=== PATIENT | male | born 1960 | race American Indian/Alaskan Native ===

== ENCOUNTER 2017-04-06 12:11 | Inpatient (IN) | payer MEDICARE, OTHER ==
[2017-04-06 12:20] VITALS: BMI 24.0
--- NOTE | 2017-04-06 12:54 | ED PDOC ---
Arrival/HPI - General Chief Complaint: Weakness/Neurological Deficit Time Seen by Provider: 04/06/17 12:46 Historian: Patient, EMS - History of Present Illness Narrative History of Present Illness (Text): The patient is a 57yo male, with past medical history of dialysis (sunday, sunday, sunday), brought to the emergency department by EMS for evaluation because the patient did not look well. The pt reports he is short of breath at baseline and at present denies any chest pain. He additionally reports feeling tired, lazy and sleepy for the past "couple months". Pt currently offers no additional medical complaints. Control Panel Tester: Dr. Stanislaw Jensen Time/Duration: > month Symptom Onset: Gradual Past Medical History - Provider Review Nursing Documentation Reviewed: Yes - Infectious Disease Hx of Infectious Diseases: None - Tetanus Immunization Tetanus Immunization: Unknown - Cardiac Hx Hypertension: Yes - Renal Hx Renal Disorder: Yes Hx Dialysis: Yes () Hx Renal Cancer: Yes Other/Comment: kidney transplant 2004 - Musculoskeletal/Rheumatological Hx Falls: No - Psychiatric Hx Substance Use: No - Surgical History Hx Kidney Transplant: Yes (2004) Hx Orthopedic Surgery: Yes (right rotator cuff) Other/Comment: L av fistula - Anesthesia Hx Anesthesia: Yes Hx Anesthesia Reactions: No Hx Malignant Hyperthermia: No Family/Social History - Physician Review Nursing Documentation Reviewed: Yes Family/Social History: Unknown Family HX Smoking Status: Never Smoked Hx Alcohol Use: No Hx Substance Use: No Allergies/Home Meds Allergies/Adverse Reactions: Allergies No Known Allergies Allergy (Verified 04/06/17 21:12) Home Medications: Home Meds Medication Instructions Recorded Confirmed Amiodarone HCl [Amiodarone HCl] 200 mg PO DAILY 04/06/17 04/06/17 Apixaban [Eliquis] 2.5 mg PO BID 04/06/17 04/06/17 Aspirin [Adult Low Dose Aspirin EC] 81 mg PO DAILY 04/06/17 04/06/17 Calcium Acetate [Phoslo] 667 mg PO TID 04/06/17 04/06/17 Cinacalcet [Sensipar] 30 mg PO BID 04/06/17 04/06/17 Colchicine [Colcrys] 0.6 mg PO 2XW 04/06/17 04/06/17 Diltiazem HCl [Cardizem] 30 mg PO DAILY 04/06/17 04/06/17 Ferrous Sulfate [Feosol] 325 mg PO DAILY 04/06/17 04/06/17 Folic Acid [Folic Acid] 1 mg PO DAILY 04/06/17 04/06/17 Furosemide [Lasix] 40 mg PO DAILY 04/06/17 04/06/17 Metoprolol Succinate [Toprol XL] 25 mg PO DAILY 04/06/17 04/06/17 Paricalcitol [Zemplar] 1 mcg PO DAILY 04/06/17 04/06/17 Sirolimus [Rapamune] 4 mg PO DAILY 04/06/17 04/06/17 Zolpidem [Ambien] 10 mg PO HS 04/06/17 04/06/17 hydrALAZINE [Apresoline] 10 mg PO BID 04/06/17 04/06/17 predniSONE [predniSONE Tab] 5 mg PO DAILY 04/06/17 04/06/17 Review of Systems - Physician Review All systems were reviewed & negative as marked: Yes Physical Exam - Physical Exam Narrative Physical Exam (Text): - Review of Systems All systems as reviewed otherwise negative. Constitutional: Lethargy absent: Fevers Eyes: Normal ENT: Normal Respiratory: SOB at baseline absent: Cough, Sputum Cardiovascular: Normal absent: Chest pain, Palpitations, Syncope Gastrointestinal: Normal absent: Abdominal pain, Diarrhea, Nausea, Vomiting Genitourinary: Normal. absent: Dysuria, Frequency, Hematuria Musculoskeletal: Normal. absent: Arthralgias, Back Pain, Neck Pain Skin: Normal Neurological: Normal absent: Focal Weakness Endocrine: Normal Psychiatric: Normal - Physical exam Patient appears age appropriate, speaking full sentences without difficulty - Systems Exam Head: Present: Atraumatic, Normocephalic Pupils: Present: PERRL Extraocular Muscles: Present: EOMI Conjunctiva: Present: Normal Mouth: Present: Moist Mucous Membranes Neck: Present: Normal Range of Motion. No: MIDLINE TENDERNESS, Paraspinal Tenderness Respiratory/Chest: Present: Clear to Auscultation, Good Air Exchange. No: Respiratory Distress, Accessory Muscle Use, Tachypnic Cardiovascular: Present: Irregularly irregular. No: Murmurs Abdomen: Present: Normal Bowel Sounds, No: Tenderness, Peritoneal Signs, Rebound, Guarding, Distention Back: Present: Normal Inspection. No: Midline Tenderness, Paraspinal Tenderness Upper Extremity: Present: Normal Inspection. Left upper extremity with hemodialysis access, positive thrill, bruit and pulse present. No: Cyanosis, Edema Lower Extremity: Present: Normal Inspection. No: Edema Neurological: Present: GCS=15, Speech Normal, cranial nerves II through XII fully intact with no cerebellar abnormality, neuro-sensory fully intact. No focal neurological deficits. Skin: Present: Warm, Dry, Normal Color. No: Rashes Lymphatic: Present: OX3, NI, NC Psychiatric: Present: Alert, Oriented x 3, Normal Insight, Normal Concentration Vital Signs Temp Pulse Resp BP Pulse Ox 04/06/17 16:38 97 H 18 113/78 97 04/06/17 15:30 102 H 18 108/70 04/06/17 13:20 94 H 18 106/78 98 04/06/17 12:11 99.9 F H 101 H 18 109/72 99 Medical Decision Making ED Course and Treatment: Impression: 57yo male on HD, states he has not been feeling well for months. No acute findings on PE. Pt in no distress. labs ordered Differential Diagnosis included but are not limited to: anemia, dehydration, infection Plan: -- Labs -- EKG -- CXR -- Reassess and disposition Prior Visits: Notes and results from previous visits were reviewed. Patient was last seen in the emergency department on 08/28/16 for lethargy and was admitted as an inpatient. Progress Notes: EKG: Ordered, reviewed, and independently interpreted the EKG. Rate : 100 BPM Rhythm : Irregularly irregular, a-fib Interpretation : No ST-segment elevations, ST Depression in V4, V5 and V6. Interpreted by me. 04/06/17 14:03 Chest X-ray IMPRESSION: Suspect right lower lobe pneumonia. read by radiology 04/06/17 15:27 BCx and abx ordered pt's qc lab technician andre, awaiting callback Dr. Whiting, environmental lead, paged as well. pt states he has no PMD at [facility] 04/06/17 15:[address] Duran, accepted admission to his service Dr. Neal informed as well pt and aware of and agree with plan pt in no resp distress at this time, speaking full sentences without difficulty - Lab Interpretations Microbiology Results: Microbiology Results 04/06/17 14:30 Blood-Venous Blood Culture - Preliminary NO GROWTH AFTER 48 HOURS 04/06/17 14:00 Blood-Venous Blood Culture - Preliminary NO GROWTH AFTER 48 HOURS Lab Results: 04/06/17 12:38 04/06/17 14:15 Lab Results 04/06/17 14:15: NT-Pro-B Natriuret Pep 92475 H 04/06/17 14:15: Sodium 134, Potassium 3.6, Chloride 95 L, Carbon Dioxide 29, Anion Gap 14, BUN 25 H, Creatinine 6.8 H, Est GFR ( Amer) 10, Est GFR ( Non-Af Amer) 8, Random Glucose 87, Calcium 8.5, Total Bilirubin 0.8, AST 29, ALT 24, Alkaline Phosphatase 55, Total Protein 6.1, Albumin 3.4, Globulin 2.7, Albumin/Globulin Ratio 1.3 04/06/17 12:38: PT 11.8, INR 1.09 H, APTT 32.2 H 04/06/17 12:38: WBC 4.3 L, RBC 4.51, Hgb 10.5 L, Hct 35.2 L, MCV 78.0 L, MCH 23.3 L, MCHC 29.8 L, RDW 23.0 H, Plt Count 263, Gran % 58.5, Lymph % (Auto) 23.9 , [place] % (Auto) 11.9 H, Eos % (Auto) 5.2 H, Baso % (Auto) 0.5, Gran # 2.50, Lymph # 1.0 L, [place] # 0.5, Eos # 0.2, Baso # 0.02 - RAD Interpretation Radiology Orders: 04/06/17 12:55 CHEST PORTABLE [RAD] Stat - Medication Orders Current Medication Orders: Acetaminophen (Tylenol 325mg Tab) 650 mg PO Q6H PRN PRN Reason: Fever >100.4 F Last Admin: 04/08/17 17:16 Dose: 650 mg Re-Assess: [facility] Pain/Vitals Document 04/08/17 18:16 MICE (Rec: 04/08/17 18:28 [place] [id number]) Pain Reassessment Is This A Pain ReAssessment? Yes Presence of Pain Presence of Pain No Amiodarone HCl (Cordarone) 200 mg PO DAILY [facility] Last Admin: 04/08/17 12:01 Dose: 200 mg Aspirin (Ecotrin) 81 mg PO DAILY [facility] Last Admin: 04/08/17 11:04 Dose: Not Given Non-Admin Reason: Patient Refused Calcium Acetate (Phoslo) 667 mg PO TID [facility] Last Admin: 04/08/17 17:37 Dose: 667 mg Colchicine (Colocrys) 0.6 mg PO 2XW [facility] Last Admin: 04/07/17 11:29 Dose: Diltiazem HCl (Cardizem) 30 mg PO DAILY [facility] Last Admin: 04/08/17 11:00 Dose: Not Given Non-Admin Reason: BP Parameters Not Met Docusate Sodium (Colace) 100 mg PO DAILY PRN PRN Reason: Constipation Last Admin: 04/08/17 14:30 Dose: 100 mg Doxycycline Hyclate (Doryx) 100 mg PO Q12 [facility] PRN Reason: Protocol Last Admin: 04/08/17 21:47 Dose: 100 mg Furosemide (Lasix) 40 mg IVP Q12 [facility] Last Admin: 04/08/17 21:47 Dose: Not Given Non-Admin Reason: BP Parameters Not Met Cefepime HCl (Maxipime 1gm) 1 gm in 100 mls @ 100 mls/hr IVPB Q24H ANURAG PRN Reason: Protocol Stop: 04/13/17 21:31 Last Admin: 04/08/17 21:47 Dose: 100 mls/hr Metoprolol Succinate (Toprol Xl) 50 mg PO DAILY [facility] Last Admin: 04/08/17 11:00 Dose: Not Given Non-Admin Reason: BP Parameters Not Met Ondansetron HCl (Zofran Inj) 4 mg IVP Q4H PRN PRN Reason: Nausea/Vomiting Last Admin: 04/08/17 22:48 Dose: 4 mg Oxycodone/Acetaminophen (Percocet 5/325 Mg Tab) 1 tab PO Q6H PRN PRN Reason: Pain, severe (8-10) Stop: 04/10/17 11:05 Last Admin: 04/07/17 15:35 Dose: 1 tab Re-Assess: KETURAH Pain Assessment Document 04/07/17 16:35 MICEM (Rec: 04/07/17 18:11 [id number] Pain Reassessment Is this a pain reassessment? Yes Sleep Is patient sleeping during reassessment? Yes Pantoprazole Sodium (Protonix Ec Tab) 40 mg PO 0600 [facility] Last Admin: 04/09/17 06:02 Dose: Not Given Non-Admin Reason: Patient Refused Prednisone (Prednisone Tab) 5 mg PO DAILY [facility] Last Admin: 04/08/17 11:03 Dose: 5 mg Vitamin B Complex/Vit C/Folic Acid (Nephro-Natalie) 1 tab PO 0800 [facility] Last Admin: 04/08/17 08:27 Dose: 1 tab Discontinued Medications Diphenhydramine HCl (Benadryl) 25 mg PO ONCE ONE Stop: 04/07/17 23:03 Last Admin: 04/07/17 23:25 Dose: 25 mg Famotidine (Pepcid) 20 mg PO 1000,2200 [facility] Last Admin: 04/07/17 10:57 Dose: 20 mg Ferrous Sulfate (Feosol) 324 mg PO DAILY [facility] Last Admin: 04/07/17 10:55 Dose: 324 mg Folic Acid (Folic Acid) 1 mg PO DAILY [facility] Last Admin: 04/07/17 10:56 Dose: 1 mg Hydralazine HCl (Apresoline) 10 mg PO BID [facility] Ceftriaxone Sodium (Rocephin 1 Gram Ivpb) 1 gm in 100 mls @ 200 mls/hr IV STAT STA PRN Reason: Protocol Stop: 04/06/17 15:53 Last Admin: 04/06/17 15:45 Dose: 200 mls/hr Azithromycin (Zithromax 500mg In Ns) 500 mg in 250 mls @ 166.667 mls/hr IV STAT STA PRN Reason: Protocol Stop: 04/06/17 16:53 Last Admin: 04/06/17 16:24 Dose: 166.667 mls/hr Linezolid (Zyvox 600mg/300ml D5w) 600 mg in 300 mls @ 200 mls/hr IVPB Q12 ANURAG PRN Reason: Protocol Stop: 04/13/17 22:01 Last Admin: 04/06/17 21:32 Dose: 200 mls/hr Dextrose/Sodium Chloride (Dextrose 5%/0.9% Ns 1000 Ml) 1,000 mls @ 100 mls/hr IV .Q10H [facility] Dextrose/Sodium Chloride (Dextrose 5%/0.9% Ns 1000 Ml) 1,000 mls @ 50 mls/hr IV .Q20H [facility] Last Admin: 04/06/17 21:28 Dose: 50 mls/hr Non-Formulary Medication (Paricalcitol [Zemplar]) 1 mcg PO DAILY [facility] Last Admin: 04/07/17 10:57 Dose: Ondansetron HCl (Zofran Inj) 4 mg IVP ONCE ONE Stop: 04/09/17 01:02 Last Admin: 04/09/17 01:36 Dose: 4 mg Pantoprazole Sodium (Protonix Inj) 40 mg IVP DAILY [facility] Last Admin: 04/07/17 12:35 Dose: 40 mg Pneumococcal Polyvalent Vaccine (Pneumovax 23 Vaccine) 0.5 ml IM .ONCE ONE Stop: 04/06/17 22:39 Last Admin: 04/07/17 00:14 Dose: Potassium Chloride (K-Dur 20 Meq Er Tab) 20 meq PO ONCE ONE Stop: 04/07/17 10:17 Last Admin: 04/07/17 10:56 Dose: 20 meq - Scribe Statement The provider has reviewed the documentation as recorded by the Piper Montoya Provider Scribe Attestation: All medical record entries made by the Piper were at my direction and personally dictated by me. I have reviewed the chart and agree that the record accurately reflects my personal performance of the history, physical exam, medical decision making, and the department course for this patient. I have also personally directed, reviewed, and agree with the discharge instructions and disposition. Disposition/Present on Arrival - Present on Arrival Any Indicators Present on Arrival: No History of DVT/PE: No History of Uncontrolled Diabetes: No Urinary Catheter: No History of Decub. Ulcer: No History Surgical Site Infection Following: None - Disposition Have Diagnosis and Disposition been Completed?: Yes Diagnosis: Pneumonia Disposition: HOSPITALIZED Disposition Time: 15:59 Patient Plan: Admission Patient Problems: Current Active Problems Problem Status Onset Pneumonia Acute Condition: FAIR
[2017-04-06 13:31] LABS: BASO # 0.02 K/mm3 (0.0-2.0); BASO % 0.5 % (0.0-3.0); EOS # 0.2 (0.0-0.7); EOS % 5.2 % (1.5-5.0); GRAN % 58.5 % (50.0-68.0); HEMOGLOBIN 10.5 gm/dL (14.0-18.0); LYMPH % 23.9 % (22.0-35.0); MEAN CORPUSCULAR HEMOGLOBIN 23.3 pg (25.0-35.0); MEAN CORPUSCULAR HGB CONC 29.8 g/dl (31.0-37.0); MONO # 0.5 (0.1-0.6); MONO % 11.9 % (1.0-6.0); PLATELET COUNT 263 10^3/uL (120.0-450.0); RBC 4.51 10^6/uL (3.5-6.1); WHITE BLOOD COUNT 4.3 10^3/ul (4.5-11.0)
[2017-04-06 13:37] LABS: INR 1.09 (0.93-1.08); PARTIAL THROMBOPLASTIN TIME 32.2 Seconds (23.7-30.8); PROTHROMBIN TIME 11.8 Seconds (9.9-11.8)
--- NOTE | 2017-04-06 14:04 | RAD ---
HISTORY: cough COMPARISON: No prior. FINDINGS: LUNGS: There is consolidation in the right lower lobe. The left lung is clear. PLEURA: No significant pleural effusion identified, no pneumothorax apparent. CARDIOVASCULAR: There is mild cardiomegaly. OSSEOUS STRUCTURES: Within normal limits for the patient's age. VISUALIZED UPPER ABDOMEN: Normal. OTHER FINDINGS: None. IMPRESSION: Suspect right lower lobe pneumonia. Follow-up after medical management is recommended to ensure complete resolution.
[2017-04-06 14:30] LABS: ALB/GLOB RATIO 1.3 (1.1-1.8); ALBUMIN 3.4 g/dL (3.0-4.8); CALCIUM 8.5 mg/dL (8.4-10.5)
[2017-04-06] MEDS ORDERED: Azithromycin 500MG/NS 250ml 500 MG/250 ML BAG IV STA (15:24)
[2017-04-06] MEDS ORDERED: cefTRIAXone 1 gm 1 GM/100 ML BAG IV STA (15:24)
--- NOTE | 2017-04-06 18:03 | CT ---
PROCEDURE: CT HEAD WITHOUT CONTRAST. HISTORY: AMS COMPARISON: None available. TECHNIQUE: Axial computed tomography images were obtained through the head/brain without intravenous contrast. Radiation dose: Total exam DLP = 774.23 mGy-cm. This CT exam was performed using one or more of the following dose reduction techniques: Automated exposure control, adjustment of the mA and/or kV according to patient size, and/or use of iterative reconstruction technique. FINDINGS: HEMORRHAGE: No intracranial hemorrhage. BRAIN: No mass effect or edema. Mild diffuse atrophy. Mild periventricular and deep white matter lucency consistent with chronic microvascular ischemic change. No evidence of acute infarct. VENTRICLES: Unremarkable. No hydrocephalus. CALVARIUM: Unremarkable. PARANASAL SINUSES: Mild chronic left maxillary sinusitis. MASTOID AIR CELLS: There is a left mastoid effusion as well as fluid in the left middle ear cavity. These are nonspecific findings. Please correlate. OTHER FINDINGS: None. IMPRESSION: No intracranial mass, hemorrhage or evidence of acute infarct. Atrophy and chronic white matter ischemic change. Left mastoid effusion and fluid in the left middle ear cavity. Nonspecific. Mild chronic left maxillary sinusitis.
--- NOTE | 2017-04-06 20:01 | CP.PCM.HP ---
Addendum entered and electronically signed by Billy Neal DO 04/06/17 22:52: Patient was seen and examined and case was discussed at great length with Dr. Almeida. Patient somewhat altered but comfortable, finding suggestive of PNA, given dialysis will start empirical treatment for HCAP. Billy Neal D.O. PGY-2 Original Note: <KIMBER ALMEIDA - Last Filed: 04/06/17 22:31> History of Present Illness - History of Present Illness History of Present Illness: Kimber Almeida DO PGY1 - Internal Medicine H&P - Dedousis/Adaniel Service CC: SOB HPI: 57M with PMH ESRD on dialysis (M/W/F), s/p kidney transplant 12 years ago, Afib diagnosed 2 months ago, HTN, gout, and pneumonia presents with c/o SOB and fatigue for the past 2 months, acutely worsening in the past 2 weeks. He was brought to the ED by ambulance, sent from dialysis center where they felt he did not appear normal. His was present at the bedside and was providing some of the history as well. He states symptoms are worse with activity, especially climbing stairs. Patient also admits to fever, nausea/vomiting, 3 pillow orthopnea, leg swelling and cramping, instability and falls, confusion, and malaise. He denies chest pain and cough. reports confusion, tiredness, darkening of skin, and general decline of health in the past two months. He was recently diagnosed with atrial fibrillation 2 months ago and restarted dialysis 1 month ago, at which time he also discontinued the immune suppressants he was on and started tapering down prednisone. Also of note, he has received 4 transfusions in the past year, 7-10 overall. He has a history of smoking, admits to occasional alcohol use, denies drug use. PMH: ESRD on HD, Afib, HTN, gout, pneumonia PSH: Kidney transplant 12 years ago Soc: previous smoker, denies alcohol and illicits All: NKDA FHx: Siblings with kidney disease, mother [place], father HTN Meds: See MAR ROS: Constitutional: +generalized weakness; pt denies fever, chills, ENT: pt denies dysphagia, otalgia, hearing deficit, rhinorrhea Eyes: pt denies sudden loss of vision, diplopia, blurred vision MSK: pt denies muscle stiffness, joint pain, extremity cramping Cardio: +sob, leg swelling; pt denies cp, dvt Pulm: +orthopnea pt denies cough, hemoptysis, wheeze GI: +loss of appetite, nausea, vomiting; pt denies abdominal pain, constipation , melena, diarrhea : +decreased urine output; pt denies burning on urination, urinary frequency, hematuria, urinary urgency Neuro: +weakness pt denies paresis, paresthesia, dizziness, gloria, numbness, tingling Derm: pt denies skin changes, lesions, nail changes Endo: pt denies intolerance to heat/cold, diaphoresis, night sweats, polydipsia Psych: +confusion pt denies anxiety, depression, mood changes PCP - Michael Correia Manager Etl - Olivier Heel [employer] - Stanislaw Jensen Present on Admission - Present on Admission Any Indicators Present on Admission: No Past Patient History - Infectious Disease Hx of Infectious Diseases: None - Tetanus Immunizations Tetanus Immunization: Unknown - Past Medical History & Family History Past Medical History?: Yes - Past Social History Smoking Status: Never Smoked - CARDIAC Hx Hypertension: Yes - RENAL Hx Chronic Kidney Disease: Yes Hx Dialysis: Yes (mwf) Hx Renal (Kidney) Cancer: Yes Other/Comment: kidney transplant 2004 - MUSCULOSKELETAL/RHEUMATOLOGICAL Hx Falls: No - PSYCHIATRIC Hx Substance Use: No - SURGICAL HISTORY Hx Kidney Transplant: Yes (2004) Hx Orthopedic Surgery: Yes (right rotator cuff) Other/Comment: L av fistula - ANESTHESIA Hx Anesthesia: Yes Hx Anesthesia Reactions: No Hx Malignant Hyperthermia: No Meds Allergies/Adverse Reactions: Allergies Allergy/AdvReac Type Severity Reaction Status Date / Time No Known Allergies Allergy Verified 04/06/17 21:12 Physical Exam - Constitutional Appears: Confused, Chronically Ill Additional comments: Lethargic - Head Exam Head Exam: ATRAUMATIC, NORMOCEPHALIC - Eye Exam Eye Exam: EOMI, Normal appearance, PERRL - ENT Exam ENT Exam: Mucous Membranes Moist - Neck Exam Neck exam: Positive for: Normal Inspection. Negative for: Lymphadenopathy, Meningismus - Respiratory Exam Respiratory Exam: Rales (Right lower lung field). absent: Rhonchi, Wheezes Additional comments: Daniel Logan breathing pattern - Cardiovascular Exam Cardiovascular Exam: +S1, +S2 Additional comments: Irregularly irregular rhythm - GI/Abdominal Exam GI & Abdominal Exam: Normal Bowel Sounds, Soft. absent: Mass, Pulsatile Mass, Rigid, Tenderness - Extremities Exam Extremities exam: Positive for: full ROM, normal inspection - Back Exam Back exam: NORMAL INSPECTION. absent: CVA tenderness (L), CVA tenderness (R), vertebral tenderness - Neurological Exam Neurological exam: Alert, CN II-XII Intact Additional comments: Oriented to person and place, but not time - Psychiatric Exam Additional comments: Flattened affect. Lethargic - Skin Skin Exam: Dry, Intact, Normal Color Results - Vital Signs Recent Vital Signs: Last Vital Signs Temp 97.9 F 04/06/17 18:06 Pulse 107 H 04/06/17 18:06 Resp 18 04/06/17 18:06 BP 109/83 04/06/17 18:06 Pulse Ox 98 04/06/17 18:06 - Labs Result Diagrams: 04/06/17 20:30 04/06/17 20:30 Assessment & Plan - Assessment and Plan (Free Text) Assessment: 55yo M with a PMH of ESRD on HD, s/p renal transplant, now back on HD, atrial fibrillation, HTN, and gout, who presented to the ED with SOB and fatigue. Likely 2/2 to PNA vs CHF exacerbation. Plan: 1. Dysnpnea - Likely 2/2 to pneumonia vs CHF exacerbation - CXR in ED significant for right lower lobe consolidation, PNA most likely cause of acute illness - EKG showed IRR/IRR rhythm but no acute ST changes - BNP also elevated 53886, but clinically not fluid overloaded, potentially 2/2 ESRD - Recieved one dose of ceftriaxone and axithromycin in ED - Start Zosyn and Linezolid due to concern for HCAP, and in consideration of ESRD - Tylenol PRN for fever - Consult ID (Cal) - Start D5 NS @50ml/hr - Recheck CBC, CMP, TSH with AM labs 2. Atrial fibrillation - Currently active a-fib, irregularly irregular rhythm - Continue amiodarone, aspirin - Hasbled score 2, Chadsvasc score 1, will hold anticoagulation at this time - Consult Cardio Ayo) 3. HTN - BP currently stable, 100's/90's, but HR elevated - Continue diltiazem, furosemide - Hold hydralazine, and increase metoprolol to 50mg daily (from 25mg daily at home) 4. ESRD on HD (M,W,F) - Had HD today, next scheduled for Sunday - Consult nephro (Manish) - Continue Phoslo, Feosol, Paracalcitol, Folate - Continue Prednisone taper - Renal diet, with supplement 5. Gout - Continue colchicine GI/DVT Ppx - Pepcid BID, SCDs Patient seen, discussed, and reviewed with senior resident and attending <Pavan Duran - Last Filed: 04/09/17 17:19> Results - Vital Signs Recent Vital Signs: Last Vital Signs Temp 97.8 F 04/09/17 07:58 Pulse 84 04/09/17 07:58 Resp 20 04/09/17 07:58 BP 114/83 04/09/17 07:58 Pulse Ox 99 04/09/17 07:58 - Labs Result Diagrams: 04/09/17 14:20 04/09/17 14:20 Labs: Laboratory Results - last 24 hr 04/09/17 04/09/17 14:20 14:20 WBC 4.6 D RBC 4.37 Hgb 10.3 L Hct 33.3 L MCV 76.2 L MCH 23.6 L MCHC 30.9 L RDW 22.7 H Plt Count 265 MPV 9.5 Gran % 67.1 Lymph % (Auto) 20.7 L [place] % (Auto) 9.6 H Eos % (Auto) 2.4 Baso % (Auto) 0.2 Gran # 3.09 Lymph # 1.0 L Bound[place] # 0.4 Eos # 0.1 Baso # 0.01 Sodium 133 Potassium 3.7 Chloride 96 L Carbon Dioxide 26 Anion Gap 15 BUN 29 H Creatinine 7.9 H Est GFR ( Amer) 9 Est GFR (Non-Af Amer) 7 Random Glucose 95 Calcium 8.8 Phosphorus 3.7 Magnesium 1.9 Total Bilirubin 0.7 AST 30 ALT 20 Alkaline Phosphatase 54 Total Protein 6.3 Albumin 3.5 Globulin 2.7 Albumin/Globulin Ratio 1.3 Attending/Attestation - Attestation I have personally seen and examined this patient.: Yes I have fully participated in the care of the patient.: Yes I have reviewed all pertinent clinical information: Yes Notes (Text): 04/09/17 17:19 Medical record note made by the resident after discussion with my direction and input after the patient was personally seen and examined by me. I have reviewed the chart and agree that the record accurately reflects by personal performance of the history, physical exam, data review, and medical decision-making, in the course for the patient. I have also personally directed the plan of care.
[2017-04-06] MEDS ORDERED: Dextrose 5%/0.9% NS 1,000 ML IV SCH ×2 (20:15→20:18)
--- NOTE | 2017-04-06 20:34 | CARD ---
APPROVED REPORT EKG Measurement Heart [id number] <Conclusion> Atrial fibrillation with rapid ventricular response ST & T wave abnormality, consider lateral ischemia or digitalis effect Abnormal ECG
[2017-04-06 20:48] LABS: ALB/GLOB RATIO 1.2 (1.1-1.8); ALBUMIN 3.1 g/dL (3.0-4.8); CALCIUM 8.1 mg/dL (8.4-10.5)
[2017-04-06 21:11] LABS: BASO # 0.02 K/mm3 (0.0-2.0); BASO % 0.5 % (0.0-3.0); EOS # 0.2 (0.0-0.7); EOS % 4.1 % (1.5-5.0); GRAN # 1.91 (1.4-6.5); GRAN % 52.1 % (50.0-68.0); HEMOGLOBIN 9.7 gm/dL (14.0-18.0); LYMPH % 27.2 % (22.0-35.0); MEAN CELL VOLUME 78.3 fL (80.0-105.0); MEAN CORPUSCULAR HEMOGLOBIN 23.6 pg (25.0-35.0); MEAN CORPUSCULAR HGB CONC 30.1 g/dl (31.0-37.0); MEAN PLATELET VOLUME 10.2 fl (7.0-11.0); MONO # 0.6 (0.1-0.6); MONO % 16.1 % (1.0-6.0); PLATELET COUNT 226 10^3/uL (120.0-450.0); RBC 4.11 10^6/uL (3.5-6.1); RED CELL DISTRIBUTION WIDTH 22.8 % (11.5-14.5); WHITE BLOOD COUNT 3.7 10^3/ul (4.5-11.0)
[2017-04-06] MEDS: Cefepime 1gm in NS 100ml 1 GM/100 ML BAG IVPB SCH (21:32)
[2017-04-06] MEDS ORDERED: Linezolid 600 mg in D5W 300 ml 600 MG/300 ML BAG IVPB SCH (22:00)
[2017-04-06] MEDS ORDERED: Pneumococcal 23-Valent Vaccine IM ONE (22:38)
[2017-04-07] MEDS ORDERED: Piperacill/Tazo 4.5gm in NS 4.5 GM/100 ML BAG IVPB SCH
[2017-04-07 08:02] LABS: BASO # 0.02 K/mm3 (0.0-2.0); BASO % 0.7 % (0.0-3.0); EOS # 0.2 (0.0-0.7); GRAN % 43.1 % (50.0-68.0); HEMOGLOBIN 8.5 gm/dL (14.0-18.0); LYMPH % 34.6 % (22.0-35.0); MEAN CELL VOLUME 78.5 fL (80.0-105.0); MEAN CORPUSCULAR HEMOGLOBIN 23.2 pg (25.0-35.0); MEAN CORPUSCULAR HGB CONC 29.5 g/dl (31.0-37.0); MEAN PLATELET VOLUME 10.2 fl (7.0-11.0); MONO # 0.5 (0.1-0.6); MONO % 15.6 % (1.0-6.0); PLATELET COUNT 219 10^3/uL (120.0-450.0); RBC 3.67 10^6/uL (3.5-6.1)
[2017-04-07 08:10] LABS: ALB/GLOB RATIO 1.2 (1.1-1.8); ALBUMIN 2.8 g/dL (3.0-4.8); CALCIUM 7.6 mg/dL (8.4-10.5)
[2017-04-07] MEDS ORDERED: PARICALCITOL 1 MCG PO SCH (10:00)
[2017-04-07] MEDS ORDERED: Metoprolol Succinate 25 mg XL Tab PO SCH (10:00)
[2017-04-07] MEDS ORDERED: Potassium Chloride 20 mEq ER Tab PO ONE (10:16)
[2017-04-07] MEDS ORDERED: Oxycodone/Acetaminophen 5/325 mg Tab PO PRN (11:04)
[2017-04-07] MEDS: Metoprolol Succinate 50 mg XL Tab PO SCH (11:08)
--- NOTE | 2017-04-07 11:43 | CP.PCM.CON ---
History of Present Illness - History of Present Illness History of Present Illness: Initial Nephrology Consultation: Assessment: Stable Hypertensive Chronic Kidney Disease (I12.0) End stage renal disease (N18.6) dependence on hemodialysis (Z99.2) (MWF) via AVF Anemia (D64.9), Hyperphosphatemia (E83.39), Secondary Hyperparathyroidism (E21.1 ), HTN (I12.0) s/p kidney transplant (2004-february 2017) hx of GI bleed Hypokalemia, A fib Plan: No acute need for dialysis today. Will plan for dialysis sunday. Continue with Nephrovite 1 tab/day. PRBC as needed for anemia. On SHERI as Mircera 200 mcg q 2 weeks, got last on , last Hb 8.5 TSAT 29% Ferritin 1243). serial trend Hb. add PPI Continue with phos binders home dose not on VDRA as outpt as Last PTH level 10. d/c zemplar BP control with meds as ordered. Patient not on RAAS edwin as BP on low side Glycemic control, Dialysis consistent diet Further work up/management as per primary team Dose meds/antibiotics (if needed) for ESRD status. Avoid fleets enema/magnesium based laxatives. may need stress dose steroids if develop sepsis/shock state supplement KDUR today.d/c IVF Thanks for allowing me to participate in care of your patient. Will follow patient with you. Please call if any Qs Dr Bill Hammond Office: [phone] Chief Complaint; feels tired HPI: Pt is a 57 y/o M with hx of ESRD on hemodialysis (MWF) via left AVF, last dialysis sunday, chronic anemia with hx of GI bleed, hyperphosphatemia, secondary hyperparathyroidism now with low PTH, hypertension presented with complaints of chronic SOB and not feeling well, tired. founf to have RLL pnuemonia Denies chest pain, palpitation, reports shortness of breath, no leg swelling had kidney transplant in 2004 which failed and pt started back on dialysis since february [address] Dover at [facility] ROS: Constitutional Symptoms: Denies fever. No chills. No Recent Weight Changes Eyes: denies change in vision, denies watery eyes, denies double vision Ears/Nose/Mouth/Throat: Denies Abnormal Taste. No Bad breath or Bad Taste. Cardiovascular: No chest pain. There is shortness of breath. No palpitations. Pulmonary: has shortness of breath minimal cough. Gastrointestinal: denies abdominal pain No nausea. No vomiting. Denies change in bowel habits. Denies Bleeding Genitourinary: makes urine. No associated pain or blood. Neurological: Denies headaches. No dizziness. Denies loss of balance. Denies weakness, denies tingling/numbness Dermatological: No Rash or Bruising or ulcers. Psychiatric: Denies Anxiety. No depression. Denies hallucinations. Rheumatological: No joint pain. Denies Joint swelling Endocrine: c/o tiredness. c/o Fatigue and denies Heat/Cold Intolerance. All other negative. Physical Examination: General Appearance: Comfortable, in no acute respiratory distress, co-operative . appears fatigued/tired. ill appearing Vitals reviewed and noted as below Head; Atraumatic, normocephalic ENT: no ulcers no thrush. Tongue is midline. Oropharynx: no rash or ulcers. EYES: Pupils are equal, round and reactive to light accommodation. Eye muscles and extraocular movement intact. Sclera is anicteric. Neck; supple no lymphadenopathy, no thyromegaly or bruit Lungs: Normal respiratory rate/effort. Breath sounds decreased at bases with RLL rales Heart: Increased rate. s1s2 normal. No rub or gallop. Extremities: no edema. No varicose veins Neurological: Patient is alert, awake and oriented to person, place and time. No focal deficit. Strength bilateral appropriate and equal Skin: Warm and dry. Normal turgor. No rash. Palpitation: Normal elasticity for age Abdomen: Abdomen is soft. Bowel sounds +. There is mild abdominal tenderness at RLQ allograft site, no guarding/rigidity or organomegaly Psych: normal insight and flat affect/mood MSK: no joint tenderness or swelling. Digits and nails normal, no deformity : bladder not palpable. has RLQ renal allograft Access: left AVF Labs/imaging reviewed. Past medical history, past surgical history, family history, social history, allergy reviewed and noted as below Family Hx: no hx of CKD. Non contributory Past Patient History - Infectious Disease Hx of Infectious Diseases: None - Tetanus Immunizations Tetanus Immunization: Unknown - Past Medical History & Family History Past Medical History?: Yes - Past Social History Smoking Status: Never Smoked - CARDIAC Hx Hypertension: Yes - PULMONARY Hx Respiratory Disorders: Yes (PE) Hx Pneumonia: Yes (04-06-17) - NEUROLOGICAL Hx Neurological Disorder: No - HEENT Hx HEENT Problems: Yes (CHRONIC L MAXILLARY SINUSITIS) - RENAL Hx Chronic Kidney Disease: Yes Hx Dialysis: Yes (mwf) Hx Renal (Kidney) Cancer: Yes Other/Comment: kidney transplant 2004 - ENDOCRINE/METABOLIC Hx Endocrine Disorders: No - HEMATOLOGICAL/ONCOLOGICAL Hx Blood Disorders: Yes Hx Anemia: Yes Hx Cancer: Yes (RENAL) - INTEGUMENTARY Hx Dermatological Problems: Yes (L AV FISTULA) - MUSCULOSKELETAL/RHEUMATOLOGICAL Hx Falls: No - GASTROINTESTINAL Hx Gastrointestinal Disorders: Yes (RECTAL BLEED) - GENITOURINARY/GYNECOLOGICAL Hx Genitourinary Disorders: No - PSYCHIATRIC Hx Substance Use: No - SURGICAL HISTORY Hx Kidney Transplant: Yes (2004) Hx Orthopedic Surgery: Yes (right rotator cuff) Other/Comment: L av fistula - ANESTHESIA Hx Anesthesia: Yes Hx Anesthesia Reactions: No Hx Malignant Hyperthermia: No Meds Allergies/Adverse Reactions: Allergies Allergy/AdvReac Type Severity Reaction Status Date / Time No Known Allergies Allergy Verified 04/06/17 21:12 - Medications Medications: Current Medications Acetaminophen (Tylenol 325mg Tab) 650 mg PO Q6H PRN PRN Reason: Fever >100.4 F Last Admin: 04/07/17 08:42 Dose: 650 mg Amiodarone HCl (Cordarone) 200 mg PO DAILY [facility] Last Admin: 04/07/17 11:06 Dose: 200 mg Aspirin (Ecotrin) 81 mg PO DAILY [facility] Last Admin: 04/07/17 11:11 Dose: Not Given Calcium Acetate (Phoslo) 667 mg PO TID [facility] Last Admin: 04/07/17 10:57 Dose: 667 mg Colchicine (Colocrys) 0.6 mg PO 2XW [facility] Last Admin: 04/07/17 11:29 Dose: Not Given Diltiazem HCl (Cardizem) 30 mg PO DAILY [facility] Last Admin: 04/07/17 11:05 Dose: 30 mg Doxycycline Hyclate (Doryx) 100 mg PO Q12 [facility] PRN Reason: Protocol Last Admin: 04/07/17 10:55 Dose: 100 mg Famotidine (Pepcid) 20 mg PO 1000,2200 [facility] Last Admin: 04/07/17 10:57 Dose: 20 mg Furosemide (Lasix) 40 mg IVP Q12 [facility] Last Admin: 04/07/17 10:56 Dose: Not Given Cefepime HCl (Maxipime 1gm) 1 gm in 100 mls @ 100 mls/hr IVPB Q24H [facility] PRN Reason: Protocol Stop: 04/13/17 21:31 Last Admin: 04/06/17 21:32 Dose: 100 mls/hr Metoprolol Succinate (Toprol Xl) 50 mg PO DAILY [facility] Last Admin: 04/07/17 11:08 Dose: Not Given Non-Formulary Medication (Paricalcitol [Zemplar]) 1 mcg PO DAILY [facility] Last Admin: 04/07/17 10:57 Dose: Not Given Oxycodone/Acetaminophen (Percocet 5/325 Mg Tab) 1 tab PO Q6H PRN PRN Reason: Pain, severe (8-10) Stop: 04/10/17 11:05 Prednisone (Prednisone Tab) 5 mg PO DAILY [facility] Last Admin: 04/07/17 11:07 Dose: 5 mg Vitamin B Complex/Vit C/Folic Acid (Nephro-Natalie) 1 tab PO 0800 [facility] Results - Vital Signs Recent Vital Signs: Last Vital Signs Temp 97.7 F 04/07/17 08:00 Pulse 78 04/07/17 11:06 Resp 20 04/07/17 08:00 BP 104/75 04/07/17 11:06 Pulse Ox 99 04/07/17 08:00 - Labs Result Diagrams: 04/07/17 06:55 04/07/17 06:55 Labs: Laboratory Results - last 24 hr 04/06/17 04/06/17 04/06/17 20:30 20:30 21:00 WBC 3.7 L RBC 4.11 Hgb 9.7 L Hct 32.2 L MCV 78.3 L MCH 23.6 L MCHC 30.1 L RDW 22.8 H Plt Count 226 MPV 10.2 Gran % 52.1 Lymph % (Auto) 27.2 [place] % (Auto) 16.1 H Eos % (Auto) 4.1 Baso % (Auto) 0.5 Gran # 1.91 Lymph # 1.0 L [place] # 0.6 Eos # 0.2 Baso # 0.02 Sodium 134 Potassium 3.7 Chloride 94 L Carbon Dioxide 30 Anion Gap 14 BUN 24 H Creatinine 7.2 H Est GFR ( Amer) 10 Est GFR (Non-Af Amer) 8 Random Glucose 85 Calcium 8.1 L Total Bilirubin 0.7 AST 27 ALT 24 Alkaline Phosphatase 48 Total Protein 5.6 L Albumin 3.1 Globulin 2.5 Albumin/Globulin Ratio 1.2 TSH 3rd Generation 3.07 04/07/17 04/07/17 06:55 06:55 WBC 3.0 L RBC 3.67 Hgb 8.5 L Hct 28.8 L MCV 78.5 L MCH 23.2 L MCHC 29.5 L RDW 23.0 H Plt Count 219 MPV 10.2 Gran % 43.1 L Lymph % (Auto) 34.6 [place] % (Auto) 15.6 H Eos % (Auto) 6.0 H Baso % (Auto) 0.7 Gran # 1.30 L Lymph # 1.0 L [place] # 0.5 Eos # 0.2 Baso # 0.02 Sodium 135 Potassium 3.1 L Chloride 98 Carbon Dioxide 28 Anion Gap 12 BUN 23 H Creatinine 7.1 H Est GFR ( Amer) 10 Est GFR (Non-Af Amer) 8 Random Glucose 186 H Calcium 7.6 L Total Bilirubin 0.7 AST 26 ALT 21 Alkaline Phosphatase 47 Total Protein 5.1 L Albumin 2.8 L Globulin 2.3 Albumin/Globulin Ratio 1.2 TSH 3rd Generation
--- NOTE | 2017-04-07 14:27 | CON ---
DATE: 04/07/2017 LOCATION: The patient is seen earlier this morning in room 556, bed 3. CHIEF COMPLAINT: Weakness and low-grade fevers. HISTORY OF PRESENT ILLNESS: The patient is a 57-year-old male with a history of renal cancer who had a renal transplant 12 years ago, currently now on end-stage renal disease, on hemodialysis, history of hypertension, gout, and atrial fibrillation and high cholesterol, and admitted now with weakness and questionable change in mental status. At this point, the patient has low-grade fevers, he has minimal cough, mild shortness of breath and no chest pain. No abdominal pain, diarrhea or constipation. He has no headaches. He is awake and alert and he knows where he is and who he is. PAST MEDICAL HISTORY: Significant for end-stage renal disease on hemodialysis, atrial fibrillation, hypertension, gout, renal cancer and kidney transplant 12 years ago. PAST SURGICAL HISTORY: Significant for kidney transplant. ALLERGIES: THE PATIENT HAS NO KNOWN ALLERGIES. MEDICATIONS AT HOME: Reviewed and include the patient to be on Sensipar, Zemplar, verapamil and Eliquis. The patient is on 5 mg of prednisone and colchicine, Ambien, amiodarone, Apresoline which is hydralazine, Cardizem and Lasix and Coreg which is carvedilol. PHYSICAL EXAMINATION: VITAL SIGNS: The patient is in bed with a temperature of 99.9, blood pressure is 115/70, respiratory rate of 18, and a heart rate of 107. HEENT: Examination of HEENT is unremarkable. NECK: Supple. LUNGS: Decreased breath sounds. HEART: Normal S1 and S2. ABDOMEN: Soft, nontender and no rebound or guarding. LABORATORY DATA: Examination reveal the patient's white count of 3.0 today, hemoglobin of 8 and yesterday the patient's white count was 3.7 and with 58% granulocytosis and 23% lymphocytosis, and platelets of 263. Coagulation is noted. Chemistries are noted, BUN of 25 and creatinine of 6.8. The BNP is 17,000. MRSA screen is not detected. Blood cultures have been ordered and sent. Urine for Legionella antigen has been sent. ASSESSMENT AND PLAN: A 57-year-old male with end-stage renal disease on hemodialysis, kidney transplant, atrial fibrillation, hypertension, gout, renal disease and renal cancer and is on prednisone p.o. 5 mg, now presented with leukopenia, tachycardia, and a chest x-ray which is consistent with a right lower lobe pneumonia. 1. Sepsis with a right lower lobe health-care associated pneumonia, possible Gram-positive cocci and possible Gram-negative pablo. We will order a procalcitonin and check on cultures and the urine for Legionella antigen. Treat the patient with doxycycline and cefepime, and we will make further recommendations. Segundo Segura MD
--- NOTE | 2017-04-07 19:00 | CP.PCM.PN ---
<Stanley Worthy - Last Filed: 04/07/17 19:05> Subjective - Date & Time of Evaluation Date of Evaluation: 04/07/17 Time of Evaluation: 18:57 - Subjective Subjective: Medicine progress note for Dr. Whiting/Dr. Duran - Stanley Worthy PGY2 Patient seen and examined at bedside this morning. Discussed current workup/ results/plan. No acute overnight events or new complaints reported. Will continue with IV abx for RLL PNA. ID, Cardio and Nephro following. Next dialysis session scheduled for Sunday. Denies chest pain, palpitations, SOB. Admits to fatigue and lack of appetite. Had 1 episodes of vomiting for which he was given zofran. Objective - Vital Signs/Intake and Output Vital Signs (last 24 hours): Temp Pulse Resp BP Pulse Ox 97.6 F 77 16 103/74 98 04/07/17 16:00 04/07/17 16:00 04/07/17 16:00 04/07/17 16:00 04/07/17 16:00 Intake and Output: 04/07/17 04/07/17 06:59 18:59 Intake Total 240 250 Output Total 450 Balance -210 250 - Medications Medications: Current Medications Acetaminophen (Tylenol 325mg Tab) 650 mg PO Q6H PRN PRN Reason: Fever >100.4 F Last Admin: 04/07/17 08:42 Dose: 650 mg Amiodarone HCl (Cordarone) 200 mg PO DAILY [facility] Last Admin: 04/07/17 11:06 Dose: 200 mg Aspirin (Ecotrin) 81 mg PO DAILY [facility] Last Admin: 04/07/17 11:11 Dose: Not Given Calcium Acetate (Phoslo) 667 mg PO TID [facility] Last Admin: 04/07/17 18:01 Dose: 667 mg Colchicine (Colocrys) 0.6 mg PO 2XW [facility] Last Admin: 04/07/17 11:29 Dose: Not Given Diltiazem HCl (Cardizem) 30 mg PO DAILY [facility] Last Admin: 04/07/17 11:05 Dose: 30 mg Doxycycline Hyclate (Doryx) 100 mg PO Q12 [facility] PRN Reason: Protocol Last Admin: 04/07/17 10:55 Dose: 100 mg Furosemide (Lasix) 40 mg IVP Q12 [facility] Last Admin: 04/07/17 10:56 Dose: Not Given Cefepime HCl (Maxipime 1gm) 1 gm in 100 mls @ 100 mls/hr IVPB Q24H [facility] PRN Reason: Protocol Stop: 04/13/17 21:31 Last Admin: 04/06/17 21:32 Dose: 100 mls/hr Metoprolol Succinate (Toprol Xl) 50 mg PO DAILY [facility] Last Admin: 04/07/17 11:08 Dose: Not Given Ondansetron HCl (Zofran Inj) 4 mg IVP Q4H PRN PRN Reason: Nausea/Vomiting Last Admin: 04/07/17 12:35 Dose: 4 mg Oxycodone/Acetaminophen (Percocet 5/325 Mg Tab) 1 tab PO Q6H PRN PRN Reason: Pain, severe (8-10) Stop: 04/10/17 11:05 Last Admin: 04/07/17 15:35 Dose: 1 tab Pantoprazole Sodium (Protonix Inj) 40 mg IVP DAILY [facility] Last Admin: 04/07/17 12:35 Dose: 40 mg Prednisone (Prednisone Tab) 5 mg PO DAILY [facility] Last Admin: 04/07/17 11:07 Dose: 5 mg Vitamin B Complex/Vit C/Folic Acid (Nephro-Natalie) 1 tab PO 0800 [facility] - Labs Labs: 04/07/17 18:20 04/07/17 06:55 PT 11.8 Seconds (9.9-11.8) 04/06/17 12:38 INR 1.09 (0.93-1.08) H 04/06/17 12:38 APTT 32.2 Seconds (23.7-30.8) H 04/06/17 12:38 - Constitutional Appears: No Acute Distress - Head Exam Head Exam: ATRAUMATIC, NORMAL INSPECTION, NORMOCEPHALIC - Eye Exam Eye Exam: EOMI, PERRL - ENT Exam ENT Exam: Mucous Membranes Moist - Neck Exam Neck Exam: Normal Inspection - Respiratory Exam Respiratory Exam: Decreased Breath Sounds. absent: Rales, Rhonchi, Wheezes - Cardiovascular Exam Cardiovascular Exam: Irregular Rhythm, +S1, +S2. absent: Gallop, Rubs, Murmur - GI/Abdominal Exam GI & Abdominal Exam: Soft. absent: Distended, Firm, Guarding, Rigid, Tenderness , Rebound - Neurological Exam Neurological Exam: Alert, Awake, Oriented x3 - Psychiatric Exam Psychiatric exam: Normal Affect, Normal Mood - Skin Skin Exam: Dry, Intact, Normal Color, Warm Assessment and Plan - Assessment and Plan (Free Text) Plan: 55yo M with history of ESRD on HD, s/p renal transplant now back on HD, atrial fibrillation, HTN and gout who presented to the ED with SOB and fatigue 1. Dysnpnea likely secondary to PNA - CXR reviewed; significant for right lower lobe consolidation - EKG reviewed; atrial fibrillation @ 101bpm, ST/T wave abnormality - Head CT reviewed; no acute mass/hemorrhage/infarct; left mastoid effusion and fluid in the middle ear cavity, mild chronic left maxillary sinusitis - BNP 75125 on admission, however likely secondary to ESRD - Echocardiogram from 08/2016 reviewed; LVEF at that time 55-60%; Mild MR/TR; Mod PHTN; Mild Pulmonic regurg - Continue with cefepime and doxycycline per ID recommendations for RLL PNA - IVF held per nephrology recs - Tylenol PRN for fever - ID/Nephro consulted 2. Atrial fibrillation - EKG reviewed - Continue with amiodarone, cardizem, ASA, toprol - Anticoagulation presently on hold; Hasbled score 2, Chadsvasc score 1 - Cardiology consulted - Dr. Ann 3. HTN - IVF discontinued per nephrology recs - Hydralazine held - Continue with cardizem/lasix - Toprol increased to 50mg daily from 25mg daily at home 4. ESRD on HD (M,W,F) - Next scheduled dialysis session on Sunday - Continue Phoslo, Feosol, Paracalcitol, Folate - Continue Prednisone taper - Renal diet, with supplement - Nephrology following - Dr. Hammond 5. GI/DVT prophylaxis -Pepcid/SCD's Patient seen, discussed, and reviewed with attending, Dr. Duran <Pavan Duran - Last Filed: 04/09/17 17:23> Objective - Vital Signs/Intake and Output Vital Signs (last 24 hours): Temp Pulse Resp BP Pulse Ox 97.8 F 84 20 114/83 99 04/09/17 07:58 04/09/17 07:58 04/09/17 07:58 04/09/17 07:58 04/09/17 07:58 Intake and Output: 04/09/17 04/09/17 06:59 18:59 Intake Total 360 480 Output Total 200 150 Balance 160 330 - Medications Medications: Current Medications Acetaminophen (Tylenol 325mg Tab) 650 mg PO Q6H PRN PRN Reason: Fever >100.4 F Last Admin: 04/08/17 17:16 Dose: 650 mg Apixaban (Eliquis) 2.5 mg PO BID [facility] PRN Reason: Protocol Aspirin (Ecotrin) 81 mg PO DAILY [facility] Last Admin: 04/08/17 11:04 Dose: Not Given Calcium Acetate (Phoslo) 667 mg PO TID [facility] Last Admin: 04/08/17 17:37 Dose: 667 mg Colchicine (Colocrys) 0.6 mg PO 2XW [facility] Last Admin: 04/07/17 11:29 Dose: Not Given Diltiazem HCl (Cardizem) 30 mg PO TID [facility] Docusate Sodium (Colace) 100 mg PO DAILY PRN PRN Reason: Constipation Last Admin: 04/08/17 14:30 Dose: 100 mg Doxycycline Hyclate (Doryx) 100 mg PO Q12 [facility] PRN Reason: Protocol Last Admin: 04/08/17 21:47 Dose: 100 mg Cefepime HCl (Maxipime 1gm) 1 gm in 100 mls @ 100 mls/hr IVPB Q24H [facility] PRN Reason: Protocol Stop: 04/13/17 21:31 Last Admin: 04/08/17 21:47 Dose: 100 mls/hr Ondansetron HCl (Zofran Inj) 4 mg IVP Q4H PRN PRN Reason: Nausea/Vomiting Last Admin: 04/08/17 22:48 Dose: 4 mg Pantoprazole Sodium (Protonix Ec Tab) 40 mg PO 0600 [facility] Last Admin: 04/09/17 06:02 Dose: Not Given Prednisone (Prednisone Tab) 5 mg PO DAILY [facility] Last Admin: 04/08/17 11:03 Dose: 5 mg Vitamin B Complex/Vit C/Folic Acid (Nephro-Natalie) 1 tab PO 0800 [facility] Last Admin: 04/09/17 09:00 Dose: 1 tab - Labs Labs: 04/09/17 14:20 04/09/17 14:20 PT 11.8 Seconds (9.9-11.8) 04/06/17 12:38 INR 1.09 (0.93-1.08) H 04/06/17 12:38 APTT 32.2 Seconds (23.7-30.8) H 04/06/17 12:38 Attending/Attestation - Attestation I have personally seen and examined this patient.: Yes I have fully participated in the care of the patient.: Yes I have reviewed all pertinent clinical information, including history, physical exam and plan: Yes Notes (Text): 04/09/17 17:22 Medical record note made by the resident after discussion with my direction and input after the patient was personally seen and examined by me. I have reviewed the chart and agree that the record accurately reflects by personal performance of the history, physical exam, data review, and medical decision-making, in the course for the patient. I have also personally directed the plan of care.
[2017-04-07] MEDS: Cefepime 1gm in NS 100ml 1 GM/100 ML BAG IVPB SCH (21:52)
[2017-04-08 07:37] LABS: HEMOGLOBIN 10.1 gm/dL (14.0-18.0); MEAN CELL VOLUME 78.1 fL (80.0-105.0); MEAN CORPUSCULAR HEMOGLOBIN 22.9 pg (25.0-35.0); MEAN CORPUSCULAR HGB CONC 29.3 g/dl (31.0-37.0); MEAN PLATELET VOLUME 9.9 fl (7.0-11.0); PLATELET COUNT 232 10^3/uL (120.0-450.0); RBC 4.42 10^6/uL (3.5-6.1); RED CELL DISTRIBUTION WIDTH 22.8 % (11.5-14.5)
[2017-04-08 07:43] LABS: WHITE BLOOD COUNT 2.3 10^3/ul (4.5-11.0)
[2017-04-08 07:57] LABS: ALB/GLOB RATIO 1.4 (1.1-1.8); ALBUMIN 3.4 g/dL (3.0-4.8); CALCIUM 8.5 mg/dL (8.4-10.5)
[2017-04-08 08:10] LABS: EOSINOPHIL 4 % (0.0-3.0); LYMPHOCYTE 29 % (22.0-35.0); MONOCYTE 13 % (1.0-6.0); NEUTROPHIL 53 % (50.0-70.0)
[2017-04-08 08:11] LABS: ANISOCYTOSIS 2+; BASOPHIL 1 % (0.0-1.0); GIANT PLATELETS PRESENT; LARGE PLATELETS PRESENT; PLATELET ESTIMATE NORMAL (NORMAL)
[2017-04-08 08:12] LABS: HELMET CELLS SLIGHT; MICROCYTOSIS 1+; OVALOCYTES 2+
[2017-04-08 08:13] LABS: SICKLE CELLS SLIGHT; TEAR DROP CELLS SLIGHT
[2017-04-08] MEDS: Multivitamin Vitamin B Complex (Nephro-Vite) Tab PO SCH (08:27)
--- NOTE | 2017-04-08 10:39 | CP.PCM.PN ---
Subjective - Date & Time of Evaluation Date of Evaluation: 04/08/17 Time of Evaluation: 10:36 - Subjective Subjective: Follow up Nephrology Consultation: Assessment: Stable Pneumonia Hypertensive Chronic Kidney Disease (I12.0) End stage renal disease (N18.6) dependence on hemodialysis (Z99.2) (MWF) via AVF Anemia (D64.9), Hyperphosphatemia (E83.39), Secondary Hyperparathyroidism (E21.1 ), HTN (I12.0) s/p kidney transplant (2004-february 2017) hx of GI bleed Hypokalemia, A fib Leukopenia Plan: No acute need for dialysis today. Will plan for dialysis sunday. Continue with Nephrovite 1 tab/day. PRBC as needed for anemia. On SHERI as Mircera 200 mcg q 2 weeks, got last on , last Hb 8.5 TSAT 29% Ferritin 1243). added PPI Continue with phos binders home dose not on VDRA as outpt as Last PTH level 10. d/c zemplar BP control with meds as ordered. Patient not on RAAS edwin as BP on low side Glycemic control, Dialysis consistent diet Further work up/management as per primary team Dose meds/antibiotics for ESRD status. Avoid fleets enema/magnesium based laxatives. may need stress dose steroids if develop sepsis/shock state consider heme eval considering his leukopenia Thanks for allowing me to participate in care of your patient. Will follow patient with you. Please call if any Qs Dr Bill Hammond Office: [phone] ROS: noted overnight events. denies CP/SOB/cough/fever. feels fatigue and tired. Physical Examination: General Appearance: Comfortable, in no acute respiratory distress, co-operative . Vitals reviewed and noted as below Lungs: Normal respiratory rate/effort. Breath sounds clear today b/l equal Heart: normal rate. s1s2 normal. No rub or gallop. Extremities: no edema. No varicose veins Neurological: Patient is alert, awake and oriented to person, place and time. No focal deficit. Strength bilateral appropriate and equal Skin: Warm and dry. Normal turgor. No rash. Palpitation: Normal elasticity for age Abdomen: Abdomen is soft. Bowel sounds +. There is mild abdominal tenderness at RLQ allograft site, no guarding/rigidity or organomegaly Psych: normal insight and flat affect/mood MSK: no joint tenderness or swelling. Digits and nails normal, no deformity : bladder not palpable. has RLQ renal allograft Access: left AVF Labs/imaging reviewed. Past medical history, past surgical history, family history, social history, allergy reviewed and noted as below Family Hx: no hx of CKD. Non contributory Objective - Vital Signs/Intake and Output Vital Signs (last 24 hours): Temp Pulse Resp BP Pulse Ox 97.6 F 90 20 114/83 98 04/08/17 07:40 04/08/17 07:40 04/08/17 07:40 04/08/17 07:40 04/08/17 07:40 Intake and Output: 04/08/17 04/08/17 06:59 18:59 Intake Total 360 Output Total 100 Balance 260 - Medications Medications: Current Medications Acetaminophen (Tylenol 325mg Tab) 650 mg PO Q6H PRN PRN Reason: Fever >100.4 F Last Admin: 04/07/17 20:01 Dose: 650 mg Amiodarone HCl (Cordarone) 200 mg PO DAILY [facility] Last Admin: 04/07/17 11:06 Dose: 200 mg Aspirin (Ecotrin) 81 mg PO DAILY [facility] Last Admin: 04/07/17 11:11 Dose: Not Given Calcium Acetate (Phoslo) 667 mg PO TID [facility] Last Admin: 04/07/17 18:01 Dose: 667 mg Colchicine (Colocrys) 0.6 mg PO 2XW [facility] Last Admin: 04/07/17 11:29 Dose: Not Given Diltiazem HCl (Cardizem) 30 mg PO DAILY [facility] Last Admin: 04/07/17 11:05 Dose: 30 mg Doxycycline Hyclate (Doryx) 100 mg PO Q12 [facility] PRN Reason: Protocol Last Admin: 04/07/17 21:52 Dose: 100 mg Furosemide (Lasix) 40 mg IVP Q12 [facility] Last Admin: 04/07/17 21:53 Dose: Not Given Cefepime HCl (Maxipime 1gm) 1 gm in 100 mls @ 100 mls/hr IVPB Q24H [facility] PRN Reason: Protocol Stop: 04/13/17 21:31 Last Admin: 04/07/17 21:52 Dose: 100 mls/hr Metoprolol Succinate (Toprol Xl) 50 mg PO DAILY [facility] Last Admin: 04/07/17 11:08 Dose: Not Given Ondansetron HCl (Zofran Inj) 4 mg IVP Q4H PRN PRN Reason: Nausea/Vomiting Last Admin: 04/07/17 20:00 Dose: 4 mg Oxycodone/Acetaminophen (Percocet 5/325 Mg Tab) 1 tab PO Q6H PRN PRN Reason: Pain, severe (8-10) Stop: 04/10/17 11:05 Last Admin: 04/07/17 15:35 Dose: 1 tab Pantoprazole Sodium (Protonix Ec Tab) 40 mg PO 0600 [facility] Prednisone (Prednisone Tab) 5 mg PO DAILY [facility] Last Admin: 04/07/17 11:07 Dose: 5 mg Vitamin B Complex/Vit C/Folic Acid (Nephro-Natalie) 1 tab PO 0800 [facility] Last Admin: 04/08/17 08:27 Dose: 1 tab - Labs Labs: 04/08/17 06:30 04/08/17 06:30 PT 11.8 Seconds (9.9-11.8) 04/06/17 12:38 INR 1.09 (0.93-1.08) H 04/06/17 12:38 APTT 32.2 Seconds (23.7-30.8) H 04/06/17 12:38
[2017-04-08] MEDS: Metoprolol Succinate 50 mg XL Tab PO SCH (11:00)
[2017-04-08] MEDS: Pantoprazole 40 mg EC Tab PO SCH (11:02)
--- NOTE | 2017-04-08 12:33 | CP.PCM.PN ---
Addendum entered and electronically signed by Vick Steven DO 04/08/17 20:09: Agree with Dr. Ruelas's exam and plan. 55yo M with a PMH of ESRD on HD, s/p renal transplant that has now failed, back on HD. Suspicious for PNA, chest CT ordered and concerning for multifocal pneumonia in bilateral lungs, ID notified. No changes to antibiotic regimen at this time. Next HD tomorrow as per Nephro. Original Note: <KIMBER RUELAS - Last Filed: 04/08/17 19:53> Subjective - Date & Time of Evaluation Date of Evaluation: 04/08/17 Time of Evaluation: 06:45 - Subjective Subjective: Kimber Ruelas DO PGY1 - Internal Medicine Progress Note - Henok/Roger Service Patient seen and examined at bedside this morning. Discussed current workup/ results/plan. No acute overnight events or new complaints reported. Patient appears much more comfortable, and is no longer complaining of SOB. Still admits to fatigue and lack of appetite and continues to have episodes of nonbloody nonbilious vomiting. He is also complaining of constipation, and says his last BM was several days ago. Next dialysis session scheduled for Sunday. Denies chest pain, palpitations, SOB. Today, upon further inquiry, he also admitted to a 20lbs weight loss over the past three months, associated with decreased appetite. He also admitted to a fhx of sister with unknown abdominal cancer, and a daughter with sickle cell trait. Objective - Vital Signs/Intake and Output Vital Signs (last 24 hours): Temp Pulse Resp BP Pulse Ox 97.6 F 86 20 116/74 98 04/08/17 07:40 04/08/17 12:01 04/08/17 07:40 04/08/17 12:01 04/08/17 07:40 Intake and Output: 04/08/17 04/08/17 06:59 18:59 Intake Total 360 Output Total 100 Balance 260 - Medications Medications: Current Medications Acetaminophen (Tylenol 325mg Tab) 650 mg PO Q6H PRN PRN Reason: Fever >100.4 F Last Admin: 04/07/17 20:01 Dose: 650 mg Amiodarone HCl (Cordarone) 200 mg PO DAILY ANURAG Last Admin: 04/08/17 12:01 Dose: 200 mg Aspirin (Ecotrin) 81 mg PO DAILY [facility] Last Admin: 04/08/17 11:04 Dose: Not Given Calcium Acetate (Phoslo) 667 mg PO TID [facility] Last Admin: 04/08/17 11:03 Dose: 667 mg Colchicine (Colocrys) 0.6 mg PO 2XW [facility] Last Admin: 04/07/17 11:29 Dose: Not Given Diltiazem HCl (Cardizem) 30 mg PO DAILY [facility] Last Admin: 04/07/17 11:05 Dose: 30 mg Docusate Sodium (Colace) 100 mg PO DAILY PRN PRN Reason: Constipation Doxycycline Hyclate (Doryx) 100 mg PO Q12 [facility] PRN Reason: Protocol Last Admin: 04/08/17 11:01 Dose: 100 mg Furosemide (Lasix) 40 mg IVP Q12 [facility] Last Admin: 04/08/17 11:04 Dose: Not Given Cefepime HCl (Maxipime 1gm) 1 gm in 100 mls @ 100 mls/hr IVPB Q24H ANURAG PRN Reason: Protocol Stop: 04/13/17 21:31 Last Admin: 04/07/17 21:52 Dose: 100 mls/hr Metoprolol Succinate (Toprol Xl) 50 mg PO DAILY [facility] Last Admin: 04/07/17 11:08 Dose: Not Given Ondansetron HCl (Zofran Inj) 4 mg IVP Q4H PRN PRN Reason: Nausea/Vomiting Last Admin: 04/07/17 20:00 Dose: 4 mg Oxycodone/Acetaminophen (Percocet 5/325 Mg Tab) 1 tab PO Q6H PRN PRN Reason: Pain, severe (8-10) Stop: 04/10/17 11:05 Last Admin: 04/07/17 15:35 Dose: 1 tab Pantoprazole Sodium (Protonix Ec Tab) 40 mg PO 0600 [facility] Last Admin: 04/08/17 11:02 Dose: 40 mg Prednisone (Prednisone Tab) 5 mg PO DAILY [facility] Last Admin: 04/08/17 11:03 Dose: 5 mg Vitamin B Complex/Vit C/Folic Acid (Nephro-Natalie) 1 tab PO 0800 [facility] Last Admin: 04/08/17 08:27 Dose: 1 tab - Labs Labs: 04/08/17 06:30 04/08/17 06:30 PT 11.8 Seconds (9.9-11.8) 04/06/17 12:38 INR 1.09 (0.93-1.08) H 04/06/17 12:38 APTT 32.2 Seconds (23.7-30.8) H 04/06/17 12:38 - Constitutional Appears: Non-toxic, No Acute Distress, Chronically Ill - Head Exam Head Exam: ATRAUMATIC, NORMOCEPHALIC - Eye Exam Eye Exam: EOMI, Normal appearance Additional comments: Proptotic - ENT Exam ENT Exam: Mucous Membranes Moist, Normal External Ear Exam, TM's Normal Bilaterally - Neck Exam Neck Exam: absent: Lymphadenopathy, Meningismus - Respiratory Exam Respiratory Exam: NORMAL BREATHING PATTERN - Cardiovascular Exam Cardiovascular Exam: +S1, +S2. absent: RRR Additional comments: IRR/IRR rhythm. No tachycardia - GI/Abdominal Exam GI & Abdominal Exam: Soft, Normal Bowel Sounds. absent: Tenderness - Extremities Exam Extremities Exam: Full ROM, Normal Inspection - Back Exam Back Exam: NORMAL INSPECTION. absent: CVA tenderness (L), CVA tenderness (R) - Neurological Exam Neurological Exam: Alert, Awake, Oriented x3 - Psychiatric Exam Psychiatric exam: Normal Affect, Normal Mood - Skin Skin Exam: Dry, Intact Assessment and Plan - Assessment and Plan (Free Text) Assessment: 55yo M with a PMH of ESRD on HD, s/p renal transplant, now back on HD, atrial fibrillation, HTN, and gout, who presented to the ED with SOB and fatigue. Likely 2/2 to PNA. Plan: 1. Dysnpnea - Likely 2/2 to pneumonia vs CHF exacerbation - CXR in ED significant for right lower lobe consolidation, PNA most likely cause of acute illness - EKG showed IRR/IRR rhythm, ST/T wave abnormality - BNP also elevated [id number], but clinically not fluid overloaded, potentially 2/2 ESRD - Head CT reviewed; no acute mass/hemorrhage/infarct; left mastoid effusion and fluid in the middle ear cavity, mild chronic left maxillary sinusitis - Repeat CXR, r/o worsening aspiration pneumonia in right middle lobe - Echo from 08/2016 showed LVEF 55-60%; Mild MR/TR; Mod PHTN; Mild pulm rergurg - Continue Cefipime and Doxycycline per ID - Tylenol PRN for fever - ID and Nephro consulted, appreciate all recs - IVF held per nephro - Order CT abd/pelv for nausea and vomiting - Recheck CBC, CMP with AM labs 2. Atrial fibrillation - Currently active a-fib, irregularly irregular rhythm - Continue amiodarone, aspirin - Hasbled score 2, Chadsvasc score 1, will hold anticoagulation at this time - Cardio (Seth) consulted, appreciate all recs 3. HTN - BP currently stable, 100's/90's - Continue diltiazem, furosemide, metoprolol 4. ESRD on HD (M,W,F) - HD next scheduled for Sunday - Nephro (Manish), consulted, appreciate all recs - Continue Phoslo, Feosol, Folate - Discontinue Paracalcitol, - Continue Prednisone taper - Renal diet, with supplement 5. Anemia, leukopenia, without thrombocytopenia - Anemia is likely chronic 2/2 chronic disease vs ESRD vs hematologic malignancy - Type and screen for PRBC in case of acute worsening - Worsening leukopenia, paradoxical in light of PNA - Consult Heme/Onc ([facility]) 6. Constipation - Patient hasn't had BM in several days, reportedly unusual for him. Feels need to defecate, but cannot - Start colace GI/DVT Ppx - Protonix, SCDs Patient seen, discussed, and reviewed with senior resident and attending <Pavan Duran - Last Filed: 04/09/17 17:26> Objective - Vital Signs/Intake and Output Vital Signs (last 24 hours): Temp Pulse Resp BP Pulse Ox 97.8 F 84 20 114/83 99 04/09/17 07:58 04/09/17 07:58 04/09/17 07:58 04/09/17 07:58 04/09/17 07:58 Intake and Output: 04/09/17 04/09/17 06:59 18:59 Intake Total 360 480 Output Total 200 150 Balance 160 330 - Medications Medications: Current Medications Acetaminophen (Tylenol 325mg Tab) 650 mg PO Q6H PRN PRN Reason: Fever >100.4 F Last Admin: 04/08/17 17:16 Dose: 650 mg Apixaban (Eliquis) 2.5 mg PO BID [facility] PRN Reason: Protocol Aspirin (Ecotrin) 81 mg PO DAILY [facility] Last Admin: 04/08/17 11:04 Dose: Not Given Calcium Acetate (Phoslo) 667 mg PO TID [facility] Last Admin: 04/08/17 17:37 Dose: 667 mg Colchicine (Colocrys) 0.6 mg PO 2XW [facility] Last Admin: 04/07/17 11:29 Dose: Not Given Diltiazem HCl (Cardizem) 30 mg PO TID [facility] Docusate Sodium (Colace) 100 mg PO DAILY PRN PRN Reason: Constipation Last Admin: 04/08/17 14:30 Dose: 100 mg Doxycycline Hyclate (Doryx) 100 mg PO Q12 [facility] PRN Reason: Protocol Last Admin: 04/08/17 21:47 Dose: 100 mg Cefepime HCl (Maxipime 1gm) 1 gm in 100 mls @ 100 mls/hr IVPB Q24H [facility] PRN Reason: Protocol Stop: 04/13/17 21:31 Last Admin: 04/08/17 21:47 Dose: 100 mls/hr Ondansetron HCl (Zofran Inj) 4 mg IVP Q4H PRN PRN Reason: Nausea/Vomiting Last Admin: 04/08/17 22:48 Dose: 4 mg Pantoprazole Sodium (Protonix Ec Tab) 40 mg PO 0600 [facility] Last Admin: 04/09/17 06:02 Dose: Not Given Prednisone (Prednisone Tab) 5 mg PO DAILY [facility] Last Admin: 04/08/17 11:03 Dose: 5 mg Vitamin B Complex/Vit C/Folic Acid (Nephro-Natalie) 1 tab PO 0800 [facility] Last Admin: 04/09/17 09:00 Dose: 1 tab - Labs Labs: 04/09/17 14:20 04/09/17 14:20 PT 11.8 Seconds (9.9-11.8) 04/06/17 12:38 INR 1.09 (0.93-1.08) H 04/06/17 12:38 APTT 32.2 Seconds (23.7-30.8) H 04/06/17 12:38 Attending/Attestation - Attestation I have personally seen and examined this patient.: Yes I have fully participated in the care of the patient.: Yes I have reviewed all pertinent clinical information, including history, physical exam and plan: Yes Notes (Text): 04/09/17 17:26 Medical record note made by the resident after discussion with my direction and input after the patient was personally seen and examined by me. I have reviewed the chart and agree that the record accurately reflects by personal performance of the history, physical exam, data review, and medical decision-making, in the course for the patient. I have also personally directed the plan of care.
--- NOTE | 2017-04-08 14:17 | PN ---
DATE: 04/08/2017 SUBJECTIVE: The patient is in bed, in no acute distress; nontoxic. No fevers. PHYSICAL EXAMINATION: VITAL SIGNS: Temperature is 98, blood pressure is 114/40, respiratory rate of 16. HEENT: Unremarkable. NECK: Supple. LUNGS: Decreased breath sounds. HEART: Normal S1 and S2. ABDOMEN: Soft and nontender. LABORATORY DATA: Reveal a white count of 2.3, hemoglobin of 10, platelets of 232. Chemistries reveal a BUN of 26 and creatinine of 7.7. Procalcitonin is 0.77. Serology of urine for Legionella antigen is negative. Microbiology reveals the blood cultures to be negative. Review of the orders reveals the patient to be on p.o. doxycycline and cefepime. Ultrasound of the lower extremity is pending. ASSESSMENT AND PLAN: He is a 57-year-old male with a history of renal cancer, renal transplant 12 years ago; end-stage renal disease, on hemodialysis; hypertension, gout, atrial fibrillation and high cholesterol admitted with sepsis with right lower lobe healthcare-associated pneumonia, possible gram-positive cocci, positive-gram negative pablo with mildly elevated procalcitonin in face of chronic renal failure and on doxycycline and cefepime, day #2, would complete 4 to 7 days of antibiotics. Segundo Segura MD
--- NOTE | 2017-04-08 16:07 | CT ---
PROCEDURE: CT Abdomen and Pelvis without intravenous contrast HISTORY: Vomiting, fatigue COMPARISON: None. TECHNIQUE: Without contrast.. Contrast Dose: 0 Radiation dose: Total exam DLP = 479.37 mGy-cm. This CT exam was performed using one or more of the following dose reduction techniques: Automated exposure control, adjustment of the mA and/or kV according to patient size, and/or use of iterative reconstruction technique. FINDINGS: LOWER THORAX: Patchy opacities at both lung bases involving both lower lobes, lingula and right middle lobe. Suspicious for pneumonia. The appearance is nonspecific, however. Trace left pleural effusion. Incidentally noted bilateral gynecomastia. Mild cardiomegaly. Minimal pericardial effusion. LIVER: Unremarkable. No gross lesion or ductal dilatation. GALLBLADDER AND BILE DUCTS: Unremarkable. PANCREAS: Unremarkable. No gross lesion or ductal dilatation. SPLEEN: Unremarkable. ADRENALS: Unremarkable. No mass. KIDNEYS AND URETERS: Severely atrophic kidneys. 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 Transplant kidney in right iliac fossa. No evidence of hydronephrosis. No mass or calculus involving transplant kidney. VASCULATURE: Unremarkable. No aortic aneurysm. BOWEL: Diverticulosis of descending and sigmoid colon. No bowel obstruction. No evidence of diverticulitis. APPENDIX: Unremarkable. Normal appendix. PERITONEUM: Unremarkable. No free fluid. No free air. LYMPH NODES: Unremarkable. No enlarged lymph nodes. BLADDER: Unremarkable. REPRODUCTIVE: Unremarkable prostate BONES: No acute fracture. OTHER FINDINGS: None. IMPRESSION: Multi lobar pulmonary opacities suspicious for pneumonia. Minimal left pleural effusion. Cardiomegaly. Minimal pericardial effusion. Renal atrophy. Right iliac fossa renal transplant without evidence of obstruction. No other acute abnormality.
--- NOTE | 2017-04-08 16:27 | RAD ---
HISTORY: SOB COMPARISON: 04/06/2017 TECHNIQUE: Chest PA and lateral FINDINGS: LUNGS: Increasing ill-defined opacity at right lung base. Questionable perihilar opacities bilaterally. PLEURA: Possible minimal left pleural effusion. No evidence right pleural effusion. CARDIOVASCULAR: Normal. OSSEOUS STRUCTURES: No significant abnormalities. VISUALIZED UPPER ABDOMEN: Normal. OTHER FINDINGS: None. IMPRESSION: Right basilar opacity. Possible bilateral perihilar opacities. Suspicious for bilateral pneumonia. Follow-up advised.
--- NOTE | 2017-04-08 18:13 | CT ---
PROCEDURE: CT Chest without contrast HISTORY: PNA, pleural effusion, pericardial effusion COMPARISON: None. TECHNIQUE: Contiguous axial images were obtained through the chest without intravenous contrast enhancement. Sagittal and coronal reconstructions were performed. Radiation dose (DLP): 372.94 mGy-cm. This CT exam was performed using one or more of the following dose reduction techniques: Automated exposure control, adjustment of the mA and/or kV according to patient size, and/or use of iterative reconstruction technique. FINDINGS: LUNGS: Multifocal pulmonary opacities. No pulmonary mass. There is some confluence of these opacities in the right lower lobe. Likely pneumonia. Cannot rule out other inflammatory etiologies. These opacities involve all lobes bilaterally. MEDIASTINUM: Unremarkable thoracic aorta. No aneurysm. Cardiomegaly. Trace pericardial. Main pulmonary artery unremarkable. No vascular congestion. No lymphadenopathy. PLEURA: Trace left pleural effusion. No right pleural effusion. No pneumothorax. BONES: No fracture. No destructive lesion. UPPER ABDOMEN: Grossly unremarkable. OTHER FINDINGS: Bilateral gynecomastia IMPRESSION: Multifocal opacities bilaterally suspicious for multi lobar pneumonia. Trace left pleural effusion. Cardiomegaly. Bilateral gynecomastia.
[2017-04-08] MEDS: Cefepime 1gm in NS 100ml 1 GM/100 ML BAG IVPB SCH (21:47)
[2017-04-09] MEDS: Pantoprazole 40 mg EC Tab PO SCH (06:02)
[2017-04-09] MEDS: Multivitamin Vitamin B Complex (Nephro-Vite) Tab PO SCH (09:00)
--- NOTE | 2017-04-09 09:26 | CP.PCM.PN ---
Addendum entered and electronically signed by Billy Neal DO 04/09/17 16:10: Patient was seen and examined and case was discussed at length with Dr. Ruelas. Patient with PNA, on cefepime and doxycycline, clinically much improved, particularly mental status. Pending dialysis today, having some paradoxycal leukopenia. Monitoring at this time, will repeat labs after dialysis. ID and nephro recs appreciated. Billy Neal D.O. PGY-2 Original Note: <KIMBER RUELAS - Last Filed: 04/09/17 15:52> Subjective - Date & Time of Evaluation Date of Evaluation: 04/09/17 Time of Evaluation: 06:45 - Subjective Subjective: Kimber Ruelas DO PGY1 - Internal Medicine Progress Note - Deddeborah/Asafel Service Patient seen and examined at bedside this morning. Overnight, he became nauseous and requested ativan twice after receiving a "blue pill". Patient appears comfortable, and is no longer complaining of SOB but is still complaining of fatigue. His appetite has improved, but continues to have nausea , as above. He had a small BM this AM, but still feels constipated. Dialysis scheduled for today. Denies chest pain, palpitations, SOB. Objective - Vital Signs/Intake and Output Vital Signs (last 24 hours): Temp Pulse Resp BP Pulse Ox 97.8 F 84 20 114/83 99 04/09/17 07:58 04/09/17 07:58 04/09/17 07:58 04/09/17 07:58 04/09/17 07:58 Intake and Output: 04/09/17 04/09/17 06:59 18:59 Intake Total 360 Output Total 200 Balance 160 - Medications Medications: Current Medications Acetaminophen (Tylenol 325mg Tab) 650 mg PO Q6H PRN PRN Reason: Fever >100.4 F Last Admin: 04/08/17 17:16 Dose: 650 mg Amiodarone HCl (Cordarone) 200 mg PO DAILY [facility] Last Admin: 04/08/17 12:01 Dose: 200 mg Aspirin (Ecotrin) 81 mg PO DAILY [facility] Last Admin: 04/08/17 11:04 Dose: Not Given Calcium Acetate (Phoslo) 667 mg PO TID [facility] Last Admin: 04/08/17 17:37 Dose: 667 mg Colchicine (Colocrys) 0.6 mg PO 2XW [facility] Last Admin: 04/07/17 11:29 Dose: Not Given Diltiazem HCl (Cardizem) 30 mg PO DAILY [facility] Last Admin: 04/08/17 11:00 Dose: Not Given Docusate Sodium (Colace) 100 mg PO DAILY PRN PRN Reason: Constipation Last Admin: 04/08/17 14:30 Dose: 100 mg Doxycycline Hyclate (Doryx) 100 mg PO Q12 [facility] PRN Reason: Protocol Last Admin: 04/08/17 21:47 Dose: 100 mg Furosemide (Lasix) 40 mg IVP Q12 [facility] Last Admin: 04/08/17 21:47 Dose: Not Given Cefepime HCl (Maxipime 1gm) 1 gm in 100 mls @ 100 mls/hr IVPB Q24H [facility] PRN Reason: Protocol Stop: 04/13/17 21:31 Last Admin: 04/08/17 21:47 Dose: 100 mls/hr Metoprolol Succinate (Toprol Xl) 50 mg PO DAILY [facility] Last Admin: 04/08/17 11:00 Dose: Not Given Ondansetron HCl (Zofran Inj) 4 mg IVP Q4H PRN PRN Reason: Nausea/Vomiting Last Admin: 04/08/17 22:48 Dose: 4 mg Oxycodone/Acetaminophen (Percocet 5/325 Mg Tab) 1 tab PO Q6H PRN PRN Reason: Pain, severe (8-10) Stop: 04/10/17 11:05 Last Admin: 04/07/17 15:35 Dose: 1 tab Pantoprazole Sodium (Protonix Ec Tab) 40 mg PO 0600 [facility] Last Admin: 04/09/17 06:02 Dose: Not Given Prednisone (Prednisone Tab) 5 mg PO DAILY [facility] Last Admin: 04/08/17 11:03 Dose: 5 mg Vitamin B Complex/Vit C/Folic Acid (Nephro-Natalie) 1 tab PO 0800 [facility] Last Admin: 04/08/17 08:27 Dose: 1 tab - Labs Labs: 04/08/17 06:30 04/08/17 06:30 PT 11.8 Seconds (9.9-11.8) 04/06/17 12:38 INR 1.09 (0.93-1.08) H 04/06/17 12:38 APTT 32.2 Seconds (23.7-30.8) H 04/06/17 12:38 - Constitutional Appears: Non-toxic, No Acute Distress, Chronically Ill - Head Exam Head Exam: ATRAUMATIC, NORMOCEPHALIC - Eye Exam Eye Exam: EOMI, Normal appearance - ENT Exam ENT Exam: Mucous Membranes Moist - Neck Exam Neck Exam: absent: Lymphadenopathy, Meningismus, Tenderness, Thyromegaly - Respiratory Exam Respiratory Exam: Clear to Ausculation Bilateral. absent: Rales, Rhonchi, Wheezes - Cardiovascular Exam Cardiovascular Exam: +S1, +S2 Additional comments: IRR/IRR rhythm - GI/Abdominal Exam GI & Abdominal Exam: Soft, Normal Bowel Sounds. absent: Firm, Guarding, Rigid, Tenderness, Mass - Extremities Exam Extremities Exam: absent: Calf Tenderness, Pedal Edema - Neurological Exam Neurological Exam: Alert, Awake, Oriented x3 - Psychiatric Exam Psychiatric exam: Normal Affect, Normal Mood - Skin Skin Exam: Dry, Intact Assessment and Plan - Assessment and Plan (Free Text) Assessment: 55yo M with a PMH of ESRD on HD, s/p renal transplant, now back on HD, atrial fibrillation, HTN, and gout, who presented to the ED with SOB and fatigue. Likely 2/2 to PNA. Plan: 1. Dysnpnea - Likely 2/2 to pneumonia vs CHF exacerbation - CXR in ED significant for right lower lobe consolidation, PNA most likely cause of acute illness. Repeat CXR yesterday showed "increasing ill-defined opacity in RL base, questionable perihilar opacities bilaterally." But did not show signs of aspiration pneumonia in RML. - Abd/Pelv CT did not show any acute intraabdominal abnormalities, but commented on findings in the chest. Chest CT showed "Multifocal opacities bilaterally suspicious for multi lobar pneumonia. Trace left pleural effusion. Trace pericardial effusion. Cardiomegaly. Bilateral gynecomastia." - Discussed these findings with ID (Imelda), in addition to paradoxical leukopenia and in the face of improving clinical picture/exam who recommended no change in antibiotics at this time. - Head CT reviewed; no acute mass/hemorrhage/infarct; left mastoid effusion and fluid in the middle ear cavity, mild chronic left maxillary sinusitis. On exam, TM intact, translucent, hypomobile, no air-fluid levels. Recommend outpatient f/ u with ENT. - Echo from 08/2016 showed LVEF 55-60%; Mild MR/TR; Mod PHTN; Mild pulm rergurg - Continue Cefipime and Doxycycline per ID - Tylenol PRN for fever - ID consulted, appreciate all recs - IVF held per nephro - Recheck CBC, CMP with AM labs 2. Atrial fibrillation - Currently active a-fib, irregularly irregular rhythm - Discontinue amiodarone and metoprolol per cario - Continue diltiazem, increase to TID for rate control per cardio - Start eliquis for anticoagulation per cardio - Cardio (Seth) consulted, appreciate all recs 3. HTN - BP stable - Continue diltiazem increase to TID, stop lasix and metoprolol per cardio 4. ESRD on HD (M,W,F) - HD today - Nephro (Manish), consulted, appreciate all recs - Continue Phoslo, Feosol, Folate - Discontinue Paracalcitol - Continue Prednisone taper - Renal diet, with supplement 5. Anemia, leukopenia, without thrombocytopenia - Anemia is likely chronic 2/2 chronic disease vs ESRD vs hematologic malignancy - Type and screen for PRBC in case of acute worsening - Worsening leukopenia, paradoxical in light of PNA - Consult Heme/Onc (Genesis) 6. Constipation - Patient had a small BM this AM, but still feels constipated - Continue colace PRN, give one time dose lactulose GI/DVT Ppx - Protonix, SCDs Patient seen, discussed, and reviewed with senior resident and attending <Pavan Duran - Last Filed: 04/09/17 17:34> Objective - Vital Signs/Intake and Output Vital Signs (last 24 hours): Temp Pulse Resp BP Pulse Ox 97.8 F 84 20 114/83 99 04/09/17 07:58 04/09/17 07:58 04/09/17 07:58 04/09/17 07:58 04/09/17 07:58 Intake and Output: 04/09/17 04/09/17 06:59 18:59 Intake Total 360 480 Output Total 200 150 Balance 160 330 - Medications Medications: Current Medications Acetaminophen (Tylenol 325mg Tab) 650 mg PO Q6H PRN PRN Reason: Fever >100.4 F Last Admin: 04/08/17 17:16 Dose: 650 mg Apixaban (Eliquis) 2.5 mg PO BID [facility] PRN Reason: Protocol Aspirin (Ecotrin) 81 mg PO DAILY [facility] Last Admin: 04/08/17 11:04 Dose: Not Given Calcium Acetate (Phoslo) 667 mg PO TID [facility] Last Admin: 04/08/17 17:37 Dose: 667 mg Colchicine (Colocrys) 0.6 mg PO 2XW [facility] Last Admin: 04/07/17 11:29 Dose: Not Given Diltiazem HCl (Cardizem) 30 mg PO TID [facility] Docusate Sodium (Colace) 100 mg PO DAILY PRN PRN Reason: Constipation Last Admin: 04/08/17 14:30 Dose: 100 mg Doxycycline Hyclate (Doryx) 100 mg PO Q12 [facility] PRN Reason: Protocol Last Admin: 04/08/17 21:47 Dose: 100 mg Cefepime HCl (Maxipime 1gm) 1 gm in 100 mls @ 100 mls/hr IVPB Q24H [facility] PRN Reason: Protocol Stop: 04/13/17 21:31 Last Admin: 04/08/17 21:47 Dose: 100 mls/hr Ondansetron HCl (Zofran Inj) 4 mg IVP Q4H PRN PRN Reason: Nausea/Vomiting Last Admin: 04/08/17 22:48 Dose: 4 mg Pantoprazole Sodium (Protonix Ec Tab) 40 mg PO 0600 [facility] Last Admin: 04/09/17 06:02 Dose: Not Given Prednisone (Prednisone Tab) 5 mg PO DAILY [facility] Last Admin: 04/08/17 11:03 Dose: 5 mg Vitamin B Complex/Vit C/Folic Acid (Nephro-Natalie) 1 tab PO 0800 [facility] Last Admin: 04/09/17 09:00 Dose: 1 tab - Labs Labs: 04/09/17 14:20 04/09/17 14:20 PT 11.8 Seconds (9.9-11.8) 04/06/17 12:38 INR 1.09 (0.93-1.08) H 04/06/17 12:38 APTT 32.2 Seconds (23.7-30.8) H 04/06/17 12:38 Attending/Attestation - Attestation I have personally seen and examined this patient.: Yes I have fully participated in the care of the patient.: Yes I have reviewed all pertinent clinical information, including history, physical exam and plan: Yes Notes (Text): 04/09/17 17:34 Medical record note made by the resident after discussion with my direction and input after the patient was personally seen and examined by me. I have reviewed the chart and agree that the record accurately reflects by personal performance of the history, physical exam, data review, and medical decision-making, in the course for the patient. I have also personally directed the plan of care.
--- NOTE | 2017-04-09 11:14 | CP.PCM.PN ---
Subjective - Date & Time of Evaluation Date of Evaluation: 04/09/17 Time of Evaluation: 11:12 - Subjective Subjective: Follow up Nephrology Consultation: Assessment: Stable Pneumonia bilateral/multifocal Hypertensive Chronic Kidney Disease (I12.0) End stage renal disease (N18.6) dependence on hemodialysis (Z99.2) (MWF) via AVF Anemia (D64.9), Hyperphosphatemia (E83.39), Secondary Hyperparathyroidism (E21.1 ), HTN (I12.0) s/p kidney transplant (2004-february 2017) hx of GI bleed Hypokalemia, A fib Leukopenia Plan: Will plan for dialysis today. Continue with Nephrovite 1 tab/day. PRBC as needed for anemia. On SHERI as Mircera 200 mcg q 2 weeks, got last on , last Hb 10 TSAT 29% Ferritin 1243). added PPI Continue with phos binders home dose not on VDRA as outpt as Last PTH level 10. d/c zemplar BP control with meds as ordered. Patient not on RAAS edwin as BP on low side Glycemic control, Dialysis consistent diet Further work up/management as per primary team Dose meds/antibiotics for ESRD status. Avoid fleets enema/magnesium based laxatives. kam storey for his leukopenia Thanks for allowing me to participate in care of your patient. Will follow patient with you. Please call if any Qs Dr Bill Hammond Office: [phone] ROS: noted overnight events. denies CP/cough/fever. feels better. improved fatigue/tiredness. reports some SOB on exertion Physical Examination: General Appearance: Comfortable, in no acute respiratory distress, co-operative . Vitals reviewed and noted as below Lungs: Normal respiratory rate/effort. Breath sounds clear today b/l equal Heart: normal rate. s1s2 normal. No rub or gallop. Extremities: no edema. No varicose veins Neurological: Patient is alert, awake and oriented to person, place and time. No focal deficit. Strength bilateral appropriate and equal Skin: Warm and dry. Normal turgor. No rash. Palpitation: Normal elasticity for age Abdomen: Abdomen is soft. Bowel sounds +. There is no abdominal tenderness. has RLQ allograft, no guarding/rigidity or organomegaly Psych: normal insight and flat affect/mood MSK: no joint tenderness or swelling. Digits and nails normal, no deformity : bladder not palpable. has RLQ renal allograft Access: left AVF Labs/imaging reviewed. Past medical history, past surgical history, family history, social history, allergy reviewed and noted as below Family Hx: no hx of CKD. Non contributory Objective - Vital Signs/Intake and Output Vital Signs (last 24 hours): Temp Pulse Resp BP Pulse Ox 97.8 F 84 20 114/83 99 04/09/17 07:58 04/09/17 07:58 04/09/17 07:58 04/09/17 07:58 04/09/17 07:58 Intake and Output: 04/09/17 04/09/17 06:59 18:59 Intake Total 360 Output Total 200 Balance 160 - Medications Medications: Current Medications Acetaminophen (Tylenol 325mg Tab) 650 mg PO Q6H PRN PRN Reason: Fever >100.4 F Last Admin: 04/08/17 17:16 Dose: 650 mg Apixaban (Eliquis) 2.5 mg PO BID [facility] PRN Reason: Protocol Aspirin (Ecotrin) 81 mg PO DAILY [facility] Last Admin: 04/08/17 11:04 Dose: Not Given Calcium Acetate (Phoslo) 667 mg PO TID [facility] Last Admin: 04/08/17 17:37 Dose: 667 mg Colchicine (Colocrys) 0.6 mg PO 2XW [facility] Last Admin: 04/07/17 11:29 Dose: Not Given Diltiazem HCl (Cardizem) 30 mg PO TID [facility] Docusate Sodium (Colace) 100 mg PO DAILY PRN PRN Reason: Constipation Last Admin: 04/08/17 14:30 Dose: 100 mg Doxycycline Hyclate (Doryx) 100 mg PO Q12 [facility] PRN Reason: Protocol Last Admin: 04/08/17 21:47 Dose: 100 mg Cefepime HCl (Maxipime 1gm) 1 gm in 100 mls @ 100 mls/hr IVPB Q24H [facility] PRN Reason: Protocol Stop: 04/13/17 21:31 Last Admin: 04/08/17 21:47 Dose: 100 mls/hr Ondansetron HCl (Zofran Inj) 4 mg IVP Q4H PRN PRN Reason: Nausea/Vomiting Last Admin: 04/08/17 22:48 Dose: 4 mg Oxycodone/Acetaminophen (Percocet 5/325 Mg Tab) 1 tab PO Q6H PRN PRN Reason: Pain, severe (8-10) Stop: 04/10/17 11:05 Last Admin: 04/07/17 15:35 Dose: 1 tab Pantoprazole Sodium (Protonix Ec Tab) 40 mg PO 0600 [facility] Last Admin: 04/09/17 06:02 Dose: Not Given Prednisone (Prednisone Tab) 5 mg PO DAILY [facility] Last Admin: 04/08/17 11:03 Dose: 5 mg Vitamin B Complex/Vit C/Folic Acid (Nephro-Natalie) 1 tab PO 0800 [facility] Last Admin: 04/09/17 09:00 Dose: 1 tab - Labs Labs: 04/08/17 06:30 04/08/17 06:30 PT 11.8 Seconds (9.9-11.8) 04/06/17 12:38 INR 1.09 (0.93-1.08) H 04/06/17 12:38 APTT 32.2 Seconds (23.7-30.8) H 04/06/17 12:38
--- NOTE | 2017-04-09 11:16 | CP.PCM.PN ---
Subjective - Date & Time of Evaluation Date of Evaluation: 04/09/17 Time of Evaluation: 10:30 - Subjective Subjective: Patient is breathing a little better, less dyspnea on exertion, no cough currently. No fevers overnight. Objective - Vital Signs/Intake and Output Vital Signs (last 24 hours): Temp Pulse Resp BP Pulse Ox 97.8 F 84 20 114/83 99 04/09/17 07:58 04/09/17 07:58 04/09/17 07:58 04/09/17 07:58 04/09/17 07:58 Intake and Output: 04/09/17 04/09/17 06:59 18:59 Intake Total 360 Output Total 200 Balance 160 - Medications Medications: Current Medications Acetaminophen (Tylenol 325mg Tab) 650 mg PO Q6H PRN PRN Reason: Fever >100.4 F Last Admin: 04/08/17 17:16 Dose: 650 mg Apixaban (Eliquis) 2.5 mg PO BID [facility] PRN Reason: Protocol Aspirin (Ecotrin) 81 mg PO DAILY [facility] Last Admin: 04/08/17 11:04 Dose: Not Given Calcium Acetate (Phoslo) 667 mg PO TID [facility] Last Admin: 04/08/17 17:37 Dose: 667 mg Colchicine (Colocrys) 0.6 mg PO 2XW [facility] Last Admin: 04/07/17 11:29 Dose: Not Given Diltiazem HCl (Cardizem) 30 mg PO TID [facility] Docusate Sodium (Colace) 100 mg PO DAILY PRN PRN Reason: Constipation Last Admin: 04/08/17 14:30 Dose: 100 mg Doxycycline Hyclate (Doryx) 100 mg PO Q12 [facility] PRN Reason: Protocol Last Admin: 04/08/17 21:47 Dose: 100 mg Cefepime HCl (Maxipime 1gm) 1 gm in 100 mls @ 100 mls/hr IVPB Q24H [facility] PRN Reason: Protocol Stop: 04/13/17 21:31 Last Admin: 04/08/17 21:47 Dose: 100 mls/hr Ondansetron HCl (Zofran Inj) 4 mg IVP Q4H PRN PRN Reason: Nausea/Vomiting Last Admin: 04/08/17 22:48 Dose: 4 mg Oxycodone/Acetaminophen (Percocet 5/325 Mg Tab) 1 tab PO Q6H PRN PRN Reason: Pain, severe (8-10) Stop: 04/10/17 11:05 Last Admin: 04/07/17 15:35 Dose: 1 tab Pantoprazole Sodium (Protonix Ec Tab) 40 mg PO 0600 [facility] Last Admin: 04/09/17 06:02 Dose: Not Given Prednisone (Prednisone Tab) 5 mg PO DAILY [facility] Last Admin: 04/08/17 11:03 Dose: 5 mg Vitamin B Complex/Vit C/Folic Acid (Nephro-Natalie) 1 tab PO 0800 [facility] Last Admin: 04/09/17 09:00 Dose: 1 tab - Labs Labs: 04/08/17 06:30 04/08/17 06:30 PT 11.8 Seconds (9.9-11.8) 04/06/17 12:38 INR 1.09 (0.93-1.08) H 04/06/17 12:38 APTT 32.2 Seconds (23.7-30.8) H 04/06/17 12:38 - Constitutional Appears: Non-toxic, No Acute Distress - Head Exam Head Exam: NORMAL INSPECTION - ENT Exam ENT Exam: Mucous Membranes Moist - Neck Exam Neck Exam: absent: Lymphadenopathy, Meningismus - Respiratory Exam Respiratory Exam: Decreased Breath Sounds - Cardiovascular Exam Cardiovascular Exam: +S1, +S2 - GI/Abdominal Exam GI & Abdominal Exam: Soft. absent: Tenderness Assessment and Plan - Assessment and Plan (Free Text) Plan: Assessment sepsis due to right lower lobe/multifocal healthcare-associated pneumonia, slowly improving renal cancer S/P renal transplant ESRD on HD HTN gout atrial fibrillation dyslipidemia Plan continue Cefepime and Doxycycline (Day 3) and will continue to monitor clinical response follow up pulmonary further recommendations patient states he traveled to [place] 2 weeks ago but only stayed in the city and [place] not go to [place]
--- NOTE | 2017-04-09 11:36 | US ---
HISTORY: Leg pain and swelling. Evaluate for DVT PHYSICIAN(S): David Reyes MD. TECHNIQUE: Duplex sonography and color-flow Doppler with graded compression were used to evaluate the deep venous systems of both lower extremities. The exam is somewhat limited by edema. FINDINGS: The visualized deep venous systems of both lower extremities are sonographically normal and compressible. Normal wave forms and augmentation are seen. There is no sonographic evidence for deep venous thrombosis in the visualized segments of both lower extremities. IMPRESSION: No sonographic evidence for deep venous thrombosis in the visualized segments of both lower extremities.
--- NOTE | 2017-04-09 13:59 | CON ---
DATE: 04/09/2017 HISTORY OF PRESENT ILLNESS: The patient is a 57-year-old male who presents with pneumonia. The patient has been cared for at for a long time and once his care transferred over to [facility]. PAST MEDICAL HISTORY: Notable for end-stage renal disease in which he has been treated with dialysis 3 times a week. The patient is status post kidney transplant several years ago, and only recently his kidneys have begun to fail. In addition, his cardiac status includes atrial fibrillation which he has been cardioverted multiple times with no success in terms of maintaining normal sinus rhythm. He was treated with Eliquis as well as AV yuliana blockers to control heart rate. No previous myocardial infarction or ischemic cardiac disease noted. His last ejection fraction was normal, performed at . He suffers from hypertension, no diabetes mellitus. SOCIAL HISTORY: He is a former smoker. REVIEW OF SYSTEMS: Fourteen-point review of systems was reviewed. It was reviewed in detail. No chest pain. Positive shortness of breath, marked fatigue noted. No loss of consciousness. PHYSICAL EXAMINATION: VITAL SIGNS: Blood pressure 114/83, heart rate in the 80s. NECK: Negative JVD. LUNGS: Without rales. HEART: S1 and S2. EXTREMITIES: Without edema. EKG shows atrial fibrillation with diffuse ST-T changes. LABORATORY DATA: Reveal a potassium of 3.9, creatinine is 7.7, hemoglobin is 10.1 with a white count of 2.3. IMPRESSION: 1. Pneumonia. 2. Chronic atrial fibrillation, on Eliquis. 3. End-stage renal disease with a failed kidney transplant. 4. Hypertension. 5. Abnormal EKG. 6. Marked fatigue. Given these findings and at the patient's request, we will transfer his care to [facility]. Since the patient is committed to weight control and anticoagulation for his atrial fibrillation, we will stop his amiodarone. In attempt to improve his fatigue, I will alter his medications and hold his beta-blockers and start the patient on diltiazem for heart rate control. An echocardiogram has been ordered. The patient is currently on IV antibiotics. David Ann MD [facility] # [id number]
[2017-04-09 14:29] LABS: BASO # 0.01 K/mm3 (0.0-2.0); BASO % 0.2 % (0.0-3.0); EOS # 0.1 (0.0-0.7); EOS % 2.4 % (1.5-5.0); GRAN # 3.09 (1.4-6.5); GRAN % 67.1 % (50.0-68.0); HEMOGLOBIN 10.3 gm/dL (14.0-18.0); LYMPH % 20.7 % (22.0-35.0); MEAN CELL VOLUME 76.2 fL (80.0-105.0); MEAN CORPUSCULAR HEMOGLOBIN 23.6 pg (25.0-35.0); MEAN CORPUSCULAR HGB CONC 30.9 g/dl (31.0-37.0); MEAN PLATELET VOLUME 9.5 fl (7.0-11.0); MONO # 0.4 (0.1-0.6); MONO % 9.6 % (1.0-6.0); PLATELET COUNT 265 10^3/uL (120.0-450.0); RBC 4.37 10^6/uL (3.5-6.1); RED CELL DISTRIBUTION WIDTH 22.7 % (11.5-14.5); WHITE BLOOD COUNT 4.6 10^3/ul (4.5-11.0)
[2017-04-09 14:39] LABS: ALB/GLOB RATIO 1.3 (1.1-1.8); ALBUMIN 3.5 g/dL (3.0-4.8); CALCIUM 8.8 mg/dL (8.4-10.5); MAGNESIUM 1.9 mg/dL (1.7-2.2)
[2017-04-09] MEDS: Metoprolol Succinate 50 mg XL Tab PO SCH (17:36)
[2017-04-09] MEDS: Cefepime 1gm in NS 100ml 1 GM/100 ML BAG IVPB SCH (21:17)
[2017-04-10] MEDS: Pantoprazole 40 mg EC Tab PO SCH (05:47)
[2017-04-10 06:57] LABS: HEMOGLOBIN 9.8 gm/dL (14.0-18.0); MEAN CELL VOLUME 78.6 fL (80.0-105.0); MEAN CORPUSCULAR HGB CONC 29.3 g/dl (31.0-37.0); PLATELET COUNT 248 10^3/uL (120.0-450.0); RBC 4.26 10^6/uL (3.5-6.1); RED CELL DISTRIBUTION WIDTH 22.7 % (11.5-14.5)
[2017-04-10 07:11] LABS: ALB/GLOB RATIO 1.3 (1.1-1.8); ALBUMIN 3.4 g/dL (3.0-4.8); CALCIUM 8.6 mg/dL (8.4-10.5)
[2017-04-10 07:21] LABS: WHITE BLOOD COUNT 2.9 10^3/ul (4.5-11.0)
[2017-04-10 08:32] LABS: ANISOCYTOSIS 1+; BAND 1 % (0-2); HYPOCHROMIA 2+; LYMPHOCYTE 22 % (22.0-35.0); MONOCYTE 4 % (1.0-6.0); NEUTROPHIL 73 % (50.0-70.0); PLATELET ESTIMATE NORMAL (NORMAL); POIKILOCYTOSIS SLIGHT
[2017-04-10 08:33] LABS: MICROCYTOSIS 1+; OVALOCYTES SLIGHT; TEAR DROP CELLS SLIGHT
[2017-04-10] MEDS: Multivitamin Vitamin B Complex (Nephro-Vite) Tab PO SCH (08:46)
--- NOTE | 2017-04-10 12:07 | CP.PCM.PN ---
Subjective - Date & Time of Evaluation Date of Evaluation: 04/10/17 Time of Evaluation: 12:05 - Subjective Subjective: Follow up Nephrology Consultation: Assessment: Stable Pneumonia bilateral/multifocal Hypertensive Chronic Kidney Disease (I12.0) End stage renal disease (N18.6) dependence on hemodialysis (Z99.2) (MWF) via AVF Anemia (D64.9), Hyperphosphatemia (E83.39), Secondary Hyperparathyroidism (E21.1 ), HTN (I12.0) s/p kidney transplant (2004-february 2017) hx of GI bleed Hypokalemia, A fib Leukopenia Plan: Will plan for dialysis tomorrow. No acute need today. Continue with Nephrovite 1 tab/day. PRBC as needed for anemia. On SHERI as Mircera 200 mcg q 2 weeks, got last on , last Hb 10 TSAT 29% Ferritin 1243. added PPI Continue with phos binders home dose not on VDRA as outpt as Last PTH level 10. d/c zemplar BP control with meds as ordered. Patient not on RAAS edwin as BP on low side Glycemic control, Dialysis consistent diet Further work up/management as per primary team Dose meds/antibiotics for ESRD status. Avoid fleets enema/magnesium based laxatives. kam storey for his leukopenia Thanks for allowing me to participate in care of your patient. Will follow patient with you. Please call if any Qs Dr Bill Hammond Office: [phone] ROS: noted overnight events. denies CP/cough/fever. Overall feels much better. improved fatigue/tiredness. c/o Wt loss Physical Examination: General Appearance: Comfortable, in no acute respiratory distress, co-operative . Vitals reviewed and noted as below Lungs: Normal respiratory rate/effort. Breath sounds clear today b/l equal Heart: normal rate. s1s2 normal. No rub or gallop. Extremities: no edema. No varicose veins Neurological: Patient is alert, awake and oriented to person, place and time. No focal deficit. Strength bilateral appropriate and equal Skin: Warm and dry. Normal turgor. No rash. Palpitation: Normal elasticity for age Abdomen: Abdomen is soft. Bowel sounds +. There is no abdominal tenderness. has RLQ allograft, no guarding/rigidity or organomegaly Psych: normal insight and flat affect/mood MSK: no joint tenderness or swelling. Digits and nails normal, no deformity : bladder not palpable. has RLQ renal allograft Access: left AVF Labs/imaging reviewed. Past medical history, past surgical history, family history, social history, allergy reviewed and noted as below Family Hx: no hx of CKD. Non contributory Objective - Vital Signs/Intake and Output Vital Signs (last 24 hours): Temp Pulse Resp BP Pulse Ox 98.7 F 89 20 101/69 98 04/10/17 07:30 04/10/17 11:00 04/10/17 07:30 04/10/17 11:00 04/10/17 07:30 Intake and Output: 04/10/17 04/10/17 06:59 18:59 Intake Total 520 Balance 520 - Medications Medications: Current Medications Acetaminophen (Tylenol 325mg Tab) 650 mg PO Q6H PRN PRN Reason: Fever >100.4 F Last Admin: 04/08/17 17:16 Dose: 650 mg Apixaban (Eliquis) 2.5 mg PO BID [facility] PRN Reason: Protocol Last Admin: 04/10/17 11:55 Dose: 2.5 mg Calcium Acetate (Phoslo) 667 mg PO TID [facility] Last Admin: 04/10/17 11:55 Dose: 667 mg Colchicine (Colocrys) 0.6 mg PO 2XW [facility] Last Admin: 04/07/17 11:29 Dose: Not Given Diltiazem HCl (Cardizem) 30 mg PO TID [facility] Last Admin: 04/10/17 11:00 Dose: Not Given Docusate Sodium (Colace) 100 mg PO DAILY PRN PRN Reason: Constipation Last Admin: 04/09/17 18:50 Dose: 100 mg Doxycycline Hyclate (Doryx) 100 mg PO Q12 [facility] PRN Reason: Protocol Last Admin: 04/10/17 11:55 Dose: 100 mg Cefepime HCl (Maxipime 1gm) 1 gm in 100 mls @ 100 mls/hr IVPB Q24H [facility] PRN Reason: Protocol Stop: 04/13/17 21:31 Last Admin: 04/09/17 21:17 Dose: 100 mls/hr Ondansetron HCl (Zofran Inj) 4 mg IVP Q4H PRN PRN Reason: Nausea/Vomiting Last Admin: 04/08/17 22:48 Dose: 4 mg Pantoprazole Sodium (Protonix Ec Tab) 40 mg PO 0600 [facility] Last Admin: 04/10/17 05:47 Dose: 40 mg Prednisone (Prednisone Tab) 5 mg PO DAILY [facility] Last Admin: 04/10/17 11:54 Dose: 5 mg Vitamin B Complex/Vit C/Folic Acid (Nephro-Natalie) 1 tab PO 0800 [facility] Last Admin: 04/10/17 08:46 Dose: 1 tab - Labs Labs: 04/10/17 06:20 04/10/17 06:20 PT 11.8 Seconds (9.9-11.8) 04/06/17 12:38 INR 1.09 (0.93-1.08) H 04/06/17 12:38 APTT 32.2 Seconds (23.7-30.8) H 04/06/17 12:38
--- NOTE | 2017-04-10 14:29 | PN ---
DATE: 04/10/2017 HISTORY OF PRESENT ILLNESS: The patient is fatigued. He seems a little better off many of the medications that I have changed since yesterday. PHYSICAL EXAMINATION: VITAL SIGNS: Blood pressure is 101/70, heart rate is in the 80s. NECK: Negative JVD. LUNGS: Without rales. HEART: S1 and S2. EXTREMITIES: Without edema. LABORATORY DATA: Hemoglobin is 9.8. Chemistries: BUN and creatinine is 14 and 4.9. IMPRESSION: 1. Pneumonia. 2. Chronic atrial fibrillation. 3. Renal insufficiency. 4. Hypertension. PLAN: Given these findings, we will stop his aspirin since he has no history of coronary artery disease. We will continue his Eliquis. As I have discussed with the patient, we will arrange for an outpatient stress test to evaluate his coronary artery disease in preparation to enroll the patient in a renal transplant programme. David Ann MD
--- NOTE | 2017-04-10 16:00 | PN ---
DATE: 04/10/2017 SUBJECTIVE: The patient is in bed in no acute distress. He was seen earlier this morning in room 560. PHYSICAL EXAMINATION VITAL SIGNS: Temperature is 98, blood pressure is 101/60, respiratory rate of 16. HEENT: Unremarkable. NECK: Supple. LUNGS: Decreased breath sounds. HEART: Normal S1 and S2. ABDOMEN: Soft and nontender. LABORATORY DATA: Reveals a white count of 2.9 today, hemoglobin of 9, with platelets of 248 and chemistries reveals a BUN of 14, creatinine of 4.9, procalcitonin is 0.77. Serology is noted. Microbiology reveals the blood cultures are no growth at 3 days and the patient's EKG shows a QTc of 433. CAT scan of the chest is noted and Dr. Bill Cedeño note is reviewed and appreciated. ASSESSMENT AND PLAN: A 57-year-old male seen early this morning in 560, bed 2. He was doing much better, admitted with sepsis with right lower lobe multifocal healthcare associated probable gram positive vs gram negative pablo improving in the face of history of renal cancer, status post renal transplant, currently end-stage renal disease on hemodialyses, hypertension, gout, atrial fibrillation, and dyslipidemia. Day #4 of cefepime and doxycycline, we will switch to p.o. Levaquin to complete 3 to 5 days of that. Case discussed with case management and team caring for the patient. We will follow with you. Should have a CBC as an outpatient and follow the leukopenia to resolution. If it does not resolve within the next week or so, hematology evaluation regarding leukopenia. Segundo Segura MD
--- NOTE | 2017-04-10 16:26 | CARD ---
APPROVED REPORT EXAM: Two-dimensional and M-mode echocardiogram with Doppler and color Doppler. INDICATION Dyspnea 2D DIMENSIONS Left Atrium (2D)6.0 (1.6-4.0cm)IVSd1.3 (0.7-1.1cm) LVDd5.6 (3.9-5.9cm)PWd1.2 (0.7-1.1cm) LVDs4.6 (2.5-4.0cm)FS (%) 18.5 % LVEF (%)35.0 (>50%) M-Mode DIMENSIONS Aortic Root3.10 (2.2-3.7cm)Aortic Cusp Exc.2.00 (1.5-2.0cm) Aortic Valve AoV Peak Epdcvrxj317.0cm/Ross Peak GR.13mmHg Mitral Valve E/A ratio0.0 TDI E/Lateral E'0.0E/Medial E'0.0 Pulmonary Valve PV Peak Fsyosujd39.5cm/sPV Peak Grad.3mmHg Tricuspid Valve TR Peak [id number]/sRAP [id number] Peak Gr.45mmHg [id number] LEFT VENTRICLE The left ventricle is normal size. There is borderline concentric left ventricular hypertrophy. The systolic function is severely impaired. There is global hypokinesis of the left ventricle. No left ventricle thrombus noted on this study. RIGHT VENTRICLE The right ventricle is mildly dilated. There is normal right ventricular wall thickness. RV Systolic function is mildly to moderately reduced. ATRIA The left atrium is severely dilated. The right atrium is moderately dilated. AORTIC VALVE The aortic valve is normal in structure. There is trace aortic regurgitation. MITRAL VALVE Mitral regurgitation is moderate to severe. TRICUSPID VALVE There is moderate tricuspid regurgitation. There is moderate pulmonary hypertension. GREAT VESSELS The aortic root is normal in size. The IVC is normal in size and collapses >50% with inspiration. <Conclusion> The left ventricle is normal size. There is borderline concentric left ventricular hypertrophy. The systolic function is severely impaired. There is global hypokinesis of the left ventricle. No left ventricle thrombus noted on this study. RV Systolic function is mildly to moderately reduced. Mitral regurgitation is moderate to severe. There is moderate tricuspid regurgitation. There is moderate pulmonary hypertension.
--- NOTE | 2017-04-10 18:36 | CARD ---
APPROVED REPORT EKG Measurement Heart [id number] <Conclusion> Atrial fibrillation T wave abnormality, consider inferolateral ischemia Prolonged QT Abnormal ECG
--- NOTE | 2017-04-10 19:16 | CP.PCM.PN ---
Subjective - Date & Time of Evaluation Date of Evaluation: 04/10/17 Time of Evaluation: 06:45 - Subjective Subjective: Kimber Ruelas DO PGY1 - Internal Medicine Progress Note - Henok/Roger Service Patient seen and examined at bedside. No acute events reported overnight. Nausea apparently due to doxycycline, which improved by taking it with food. Patient appears comfortable, and is not complaining of SOB but is still complaining of fatigue. His appetite has improved, but continues to have slight nausea. He did have a large BM yesterday and no longer feels constipated. Next dialysis scheduled tomorrow. Denies chest pain, palpitations, SOB. Objective - Vital Signs/Intake and Output Vital Signs (last 24 hours): Temp Pulse Resp BP Pulse Ox 97.7 F 89 16 105/70 100 04/10/17 16:00 04/10/17 18:29 04/10/17 16:00 04/10/17 18:29 04/10/17 16:00 Intake and Output: 04/10/17 04/11/17 18:59 06:59 Intake Total 480 Balance 480 - Medications Medications: Current Medications Acetaminophen (Tylenol 325mg Tab) 650 mg PO Q6H PRN PRN Reason: Fever >100.4 F Last Admin: 04/08/17 17:16 Dose: 650 mg Apixaban (Eliquis) 2.5 mg PO BID [facility] PRN Reason: Protocol Last Admin: 04/10/17 18:29 Dose: 2.5 mg Calcium Acetate (Phoslo) 667 mg PO TID [facility] Last Admin: 04/10/17 18:29 Dose: 667 mg Colchicine (Colocrys) 0.6 mg PO 2XW [facility] Last Admin: 04/07/17 11:29 Dose: Not Given Diltiazem HCl (Cardizem) 30 mg PO TID [facility] Last Admin: 04/10/17 18:29 Dose: 30 mg Docusate Sodium (Colace) 100 mg PO DAILY PRN PRN Reason: Constipation Last Admin: 04/09/17 18:50 Dose: 100 mg Levofloxacin (Levaquin) 250 mg PO DAILY [facility] Stop: 04/14/17 10:01 Ondansetron HCl (Zofran Inj) 4 mg IVP Q4H PRN PRN Reason: Nausea/Vomiting Last Admin: 04/08/17 22:48 Dose: 4 mg Pantoprazole Sodium (Protonix Ec Tab) 40 mg PO 0600 [facility] Last Admin: 04/10/17 05:47 Dose: 40 mg Prednisone (Prednisone Tab) 5 mg PO DAILY [facility] Last Admin: 04/10/17 11:54 Dose: 5 mg Vitamin B Complex/Vit C/Folic Acid (Nephro-Natalie) 1 tab PO 0800 [facility] Last Admin: 04/10/17 08:46 Dose: 1 tab - Labs Labs: 04/10/17 06:20 04/10/17 06:20 PT 11.8 Seconds (9.9-11.8) 04/06/17 12:38 INR 1.09 (0.93-1.08) H 04/06/17 12:38 APTT 32.2 Seconds (23.7-30.8) H 04/06/17 12:38 - Constitutional Appears: Non-toxic, No Acute Distress, Chronically Ill - Head Exam Head Exam: ATRAUMATIC, NORMOCEPHALIC - Eye Exam Eye Exam: EOMI, Normal appearance - ENT Exam ENT Exam: Mucous Membranes Moist - Neck Exam Neck Exam: Normal Inspection. absent: Lymphadenopathy, Meningismus, Thyromegaly - Respiratory Exam Respiratory Exam: Rales (mild, RLL). absent: Rhonchi, Wheezes - Cardiovascular Exam Cardiovascular Exam: Irregular Rhythm, +S1, +S2 Additional comments: Orthostatic pressures unchanged supine, seated, and standing - GI/Abdominal Exam GI & Abdominal Exam: Soft, Normal Bowel Sounds. absent: Distended, Firm, Guarding, Rigid, Tenderness - Extremities Exam Extremities Exam: Full ROM. absent: Calf Tenderness, Pedal Edema - Neurological Exam Neurological Exam: Alert, Awake, Oriented x3 - Psychiatric Exam Psychiatric exam: Normal Affect, Normal Mood - Skin Skin Exam: Dry, Intact Assessment and Plan - Assessment and Plan (Free Text) Assessment: 55yo M with a PMH of ESRD on HD, s/p renal transplant, now back on HD, atrial fibrillation, HTN, and gout, who presented to the ED with SOB and fatigue. Likely 2/2 to PNA. Plan: 1. Dysnpnea - Likely 2/2 to pneumonia vs CHF exacerbation - CXR in ED significant for right lower lobe consolidation, PNA most likely cause of acute illness. - Echo from 08/2016 showed LVEF 55-60%; Mild MR/TR; Mod PHTN; Mild pulm rergurg - Repeat echo today shows LVEF 35%, which is a significant worsening over the past 8 months. Cardio on consult, appreciate all recs. - Discontinue Cefipime and Doxycycline per ID, switched to Levaquin - Tylenol PRN for fever - ID consulted, appreciate all recs - IVF held per nephro - Recheck CBC, CMP with AM labs - Ordered PT eval and TCU eval to consider discharge to [facility] or TCU 2. Atrial fibrillation - Currently active a-fib, irregularly irregular rhythm - Continue diltiazem 30mg TID, for rate control per cardio - Vitals and symptoms improved somewhat since changing rate/rhythm control medications - Continue eliquis for anticoagulation per cardio - Cardio (Seth) consulted, appreciate all recs 3. HTN - BP stable, especially since holding other antihypertensives - Continue diltiazem TID 4. ESRD on HD (M,W,F) - HD tomorrow - Nephro (Manish), consulted, appreciate all recs - Continue Phoslo, Feosol, Folate - Continue Prednisone taper - Renal diet, with supplement 5. Anemia, leukopenia, without thrombocytopenia - Anemia is likely chronic 2/2 chronic disease vs ESRD vs hematologic malignancy - Type and screen for PRBC in case of acute worsening - Worsening leukopenia, paradoxical in light of PNA - Consult Heme/Onc (Genesis) pending 6. Constipation - improved - Patient had a large BM yesterday, no longer feels constipated - Continue colace PRN GI/DVT Ppx - Protonix, SCDs Patient seen, discussed, and reviewed with senior resident and attending
[2017-04-11] MEDS: Pantoprazole 40 mg EC Tab PO SCH (06:15)
[2017-04-11 07:01] LABS: BASO # 0.01 K/mm3 (0.0-2.0); BASO % 0.3 % (0.0-3.0); EOS # 0.1 (0.0-0.7); EOS % 2.7 % (1.5-5.0); GRAN # 1.53 (1.4-6.5); GRAN % 46.7 % (50.0-68.0); HEMOGLOBIN 9.9 gm/dL (14.0-18.0); LYMPH # 1.3 (1.2-3.4); MEAN CELL VOLUME 78.6 fL (80.0-105.0); MEAN CORPUSCULAR HEMOGLOBIN 23.5 pg (25.0-35.0); MEAN CORPUSCULAR HGB CONC 29.9 g/dl (31.0-37.0); MEAN PLATELET VOLUME 9.5 fl (7.0-11.0); MONO # 0.4 (0.1-0.6); MONO % 11.3 % (1.0-6.0); PLATELET COUNT 247 10^3/uL (120.0-450.0); RBC 4.21 10^6/uL (3.5-6.1); RED CELL DISTRIBUTION WIDTH 22.9 % (11.5-14.5); WHITE BLOOD COUNT 3.3 10^3/ul (4.5-11.0)
[2017-04-11 07:05] LABS: ALB/GLOB RATIO 1.3 (1.1-1.8); ALBUMIN 3.5 g/dL (3.0-4.8); CALCIUM 8.9 mg/dL (8.4-10.5); MAGNESIUM 2.1 mg/dL (1.7-2.2)
[2017-04-11 09:08] VITALS: RESP 18; TEMP 97.6; O2SAT 99
[2017-04-11] MEDS: Multivitamin Vitamin B Complex (Nephro-Vite) Tab PO SCH (11:03)
--- NOTE | 2017-04-11 11:05 | CP.PCM.PN ---
Subjective - Date & Time of Evaluation Date of Evaluation: 04/11/17 Time of Evaluation: 11:01 - Subjective Subjective: Follow up Nephrology Consultation: Assessment: Stable Pneumonia bilateral/multifocal Systolic CHF (EF 35%) with Rv dysfunction and moderate pulmonary HTN Hypertensive Chronic Kidney Disease (I12.0) End stage renal disease (N18.6) dependence on hemodialysis (Z99.2) (MWF) via AVF Anemia (D64.9), Hyperphosphatemia (E83.39), Secondary Hyperparathyroidism (E21.1 ), HTN (I12.0) s/p kidney transplant (2004-february 2017) hx of GI bleed Hypokalemia, A fib Leukopenia Plan: plan for dialysis today as per MWF schedule. Continue with Nephrovite 1 tab/ day. PRBC as needed for anemia. On SHERI as Mircera 200 mcg q 2 weeks, got last on , last Hb 9.9 TSAT 29% Ferritin 1243. added PPI Continue with phos binders home dose not on VDRA as outpt as Last PTH level 10. d/c zemplar BP controlled with meds as ordered. start low dose lisinopril 5 m/day considering his CHF. 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 he is on eliquis for systemic a/c. Dose meds/antibiotics for ESRD status. Avoid fleets enema/magnesium based laxatives. heme eval for his leukopenia getting levaquin for his PNA as per ID gradual prednisone taper as outpt once d/c. he is off rest of the immunosuppressive meds. Thanks for allowing me to participate in care of your patient. Please call if any Qs. pt stable for d/c from renal perspective. f/up Dr [place] post d/c Dr Bill Hammond Office: [phone] ROS: noted overnight events. denies CP/cough/fever. Overall feels much better. improved fatigue/tiredness. c/o Wt loss over time Physical Examination: General Appearance: Comfortable, in no acute respiratory distress, co-operative . Vitals reviewed and noted as below Lungs: Normal respiratory rate/effort. Breath sounds clear today b/l equal Heart: normal rate. s1s2 normal. No rub or gallop. Extremities: no edema. No varicose veins Neurological: Patient is alert, awake and oriented to person, place and time. No focal deficit. Strength bilateral appropriate and equal Skin: Warm and dry. Normal turgor. No rash. Palpitation: Normal elasticity for age Abdomen: Abdomen is soft. Bowel sounds +. There is no abdominal tenderness. has RLQ allograft, no guarding/rigidity or organomegaly Psych: normal insight and flat affect/mood MSK: no joint tenderness or swelling. Digits and nails normal, no deformity : bladder not palpable. has RLQ renal allograft Access: left AVF Labs as below Objective - Vital Signs/Intake and Output Vital Signs (last 24 hours): Temp Pulse Resp BP Pulse Ox 97.6 F 73 18 107/74 99 04/11/17 07:30 04/11/17 07:30 04/11/17 07:30 04/11/17 07:30 04/11/17 07:30 Intake and Output: 04/11/17 04/11/17 06:59 18:59 Intake Total 720 Balance 720 - Medications Medications: Current Medications Acetaminophen (Tylenol 325mg Tab) 650 mg PO Q6H PRN PRN Reason: Fever >100.4 F Last Admin: 04/08/17 17:16 Dose: 650 mg Apixaban (Eliquis) 2.5 mg PO BID [facility] PRN Reason: Protocol Last Admin: 04/10/17 18:29 Dose: 2.5 mg Calcium Acetate (Phoslo) 667 mg PO TID [facility] Last Admin: 04/10/17 18:29 Dose: 667 mg Colchicine (Colocrys) 0.6 mg PO 2XW [facility] Last Admin: 04/07/17 11:29 Dose: Not Given Diltiazem HCl (Cardizem) 30 mg PO TID [facility] Last Admin: 04/10/17 18:29 Dose: 30 mg Docusate Sodium (Colace) 100 mg PO DAILY PRN PRN Reason: Constipation Last Admin: 04/09/17 18:50 Dose: 100 mg Levofloxacin (Levaquin) 250 mg PO DAILY [facility] Stop: 04/14/17 10:01 Lisinopril (Zestril) 5 mg PO DAILY [facility] Ondansetron HCl (Zofran Inj) 4 mg IVP Q4H PRN PRN Reason: Nausea/Vomiting Last Admin: 04/08/17 22:48 Dose: 4 mg Pantoprazole Sodium (Protonix Ec Tab) 40 mg PO 0600 [facility] Last Admin: 04/11/17 06:15 Dose: 40 mg Prednisone (Prednisone Tab) 5 mg PO DAILY [facility] Last Admin: 04/10/17 11:54 Dose: 5 mg Trazodone HCl (Desyrel) 50 mg PO HS PRN PRN Reason: Sleep Last Admin: 04/10/17 21:24 Dose: 50 mg Vitamin B Complex/Vit C/Folic Acid (Nephro-Natalie) 1 tab PO 0800 [facility] Last Admin: 04/10/17 08:46 Dose: 1 tab - Labs Labs: 04/11/17 06:20 04/11/17 06:20 PT 11.8 Seconds (9.9-11.8) 04/06/17 12:38 INR 1.09 (0.93-1.08) H 04/06/17 12:38 APTT 32.2 Seconds (23.7-30.8) H 04/06/17 12:38
[2017-04-11 14:30] VITALS: BP 100/64; PULSE 80
--- NOTE | 2017-04-11 15:42 | CP.PCM.DIS ---
<IRMA ALMEIDA - Last Filed: 04/11/17 15:25> Provider - Provider Date of Admission: 04/06/17 15:59 Attending physician: Vinny Whiting MD Primary care physician: Dr. Moss Consults: Cardio: Nan ID: [id number] Nephro: Manish Time Spent in preparation of Discharge (in minutes): 45 Diagnosis - Discharge Diagnosis (1) Pneumonia Status: Acute Priority: High (2) CKD (chronic kidney disease) stage 4, GFR 15-29 ml/min Status: Chronic Priority: High (3) Chronic congestive heart failure Status: Chronic Priority: Medium (4) Dyspnea Status: Acute Priority: High Hospital Course - Lab Results Lab Results: Most Recent Lab Values WBC 3.3 10^3/ul (4.5-11.0) L 04/11/17 06:20 RBC 4.21 10^6/uL (3.5-6.1) 04/11/17 06:20 Hgb 9.9 gm/dL (14.0-18.0) L 04/11/17 06:20 Hct 33.1 % (42.0-52.0) L 04/11/17 06:20 MCV 78.6 fL (80.0-105.0) L 04/11/17 06:20 MCH 23.5 pg (25.0-35.0) L 04/11/17 06:20 MCHC 29.9 g/dl (31.0-37.0) L 04/11/17 06:20 RDW 22.9 % (11.5-14.5) H 04/11/17 06:20 Plt Count 247 10^3/uL (120.0-450.0) 04/11/17 06:20 MPV 9.5 fl (7.0-11.0) 04/11/17 06:20 Gran % 46.7 % (50.0-68.0) L 04/11/17 06:20 Lymph % (Auto) 39.0 % (22.0-35.0) H 04/11/17 06:20 [place] % (Auto) 11.3 % (1.0-6.0) H 04/11/17 06:20 Eos % (Auto) 2.7 % (1.5-5.0) 04/11/17 06:20 Baso % (Auto) 0.3 % (0.0-3.0) 04/11/17 06:20 Gran # 1.53 (1.4-6.5) 04/11/17 06:20 Lymph # 1.3 (1.2-3.4) 04/11/17 06:20 [place] # 0.4 (0.1-0.6) 04/11/17 06:20 Eos # 0.1 (0.0-0.7) 04/11/17 06:20 Baso # 0.01 K/mm3 (0.0-2.0) 04/11/17 06:20 Neutrophils % (Manual) 73 % (50.0-70.0) H 04/10/17 06:20 Band Neutrophils % 1 % (0-2) 04/10/17 06:20 Lymphocytes % (Manual) 22 % (22.0-35.0) 04/10/17 06:20 Monocytes % (Manual) 4 % (1.0-6.0) 04/10/17 06:20 Eosinophils % (Manual) 4 % (0.0-3.0) H 04/08/17 06:30 Basophils % (Manual) 1 % (0.0-1.0) 04/08/17 06:30 Platelet Evaluation Normal (NORMAL) 04/10/17 06:20 Large Platelets Present 04/08/17 06:30 Giant Platelets Present 04/08/17 06:30 Hypochromasia 2+ 04/10/17 06:20 Poikilocytosis (manual Slight 04/10/17 06:20 Anisocytosis (manual) 1+ 04/10/17 06:20 Microcytosis (manual) 1+ 04/10/17 06:20 Sickle Cells Slight 04/08/17 06:30 Tear Drop Cells Slight 04/10/17 06:20 Ovalocytes Slight 04/10/17 06:20 Helmet Cells Slight 04/08/17 06:30 PT 11.8 Seconds (9.9-11.8) 04/06/17 12:38 INR 1.09 (0.93-1.08) H 04/06/17 12:38 APTT 32.2 Seconds (23.7-30.8) H 04/06/17 12:38 Sodium 136 mmol/L (132-148) 04/11/17 06:20 Potassium 3.9 mmol/L (3.6-5.0) 04/11/17 06:20 Chloride 99 mmol/L (98-107) 04/11/17 06:20 Carbon Dioxide 29 mmol/L (21-33) 04/11/17 06:20 Anion Gap 12 (10-20) 04/11/17 06:20 BUN 19 mg/dL (7-21) 04/11/17 06:20 Creatinine 6.0 mg/dL (0.5-1.4) H 04/11/17 06:20 Est GFR ( Amer) 12 04/11/17 06:20 Est GFR (Non-Af Amer) 10 04/11/17 06:20 Random Glucose 82 mg/dL (70-110) 04/11/17 06:20 Calcium 8.9 mg/dL (8.4-10.5) 04/11/17 06:20 Phosphorus 3.3 mg/dL (2.5-4.5) 04/11/17 06:20 Magnesium 2.1 mg/dL (1.7-2.2) 04/11/17 06:20 Total Bilirubin 0.7 mg/dL (0.2-1.3) 04/11/17 06:20 AST 36 U/L (15-59) 04/11/17 06:20 ALT 20 U/L (7-56) 04/11/17 06:20 Alkaline Phosphatase 51 U/L (38-133) 04/11/17 06:20 Troponin I 0.02 ng/mL 04/10/17 17:55 NT-Pro-B Natriuret Pep 75678 pg/mL (0-450) H 04/06/17 14:15 Total Protein 6.1 g/dL (5.8-8.3) 04/11/17 06:20 Albumin 3.5 g/dL (3.0-4.8) 04/11/17 06:20 Globulin 2.6 gm/dL 04/11/17 06:20 Albumin/Globulin Ratio 1.3 (1.1-1.8) 04/11/17 06:20 Procalcitonin 0.77 NG/ML (0.19-0.49) H 04/07/17 08:20 TSH 3rd Generation 3.07 mIU/mL (0.46-4.68) 04/06/17 21:00 Ur L.pneumophila Ag Negative (NEGATIVE) 04/07/17 06:00 Blood Type A POSITIVE 04/08/17 07:45 Antibody Screen Negative 04/08/17 07:45 BBK History Checked Patient has bt 04/08/17 07:45 - Hospital Course Hospital Course: 55yo M with a PMH of ESRD on HD (M/W/F), s/p renal transplant 12 years ago which failed one month ago, now back on HD, atrial fibrillation, HTN, and gout, who initially presented [place] [facility] with SOB and fatigue. In the ER, he was very lethargic and mildly confused. CXR was significant for RLL consolidation, and he was started on antibiotics for HCAP. Initially, he was not anticoagulated despite his history of afib due to relatively greater risk of bleeding than stroke, but later, cardio started him on Eliquis. On the second day, patient was doing much better clinically, no longer nearly as tired, and no longer confused. BP was low on several measurements so antihypertensives were held. On day 3, he continued to improve clinically, and had his normally scheduled HD. He was also seen by cardiology who changed his regimen of antihypertensives and antiarrhythmics to just one medication for rate control, and his BP stabilized. Yesterday, he was dramatically improved, and started to ambulate around the floor independantly. He did have an echocardiogram completed yesterday which showed a LVEF of 35%, down from 55-60% 7 months ago. He was instructed to follow up with his hygiene assistant on this on an outpatient basis. Today, he no longer has any CP. SOB, cough, wheeze, F/C, N/V/D/C, abdominal pain. He still feels somewhat weak and deconditioned, but is able to walk around without assistance. He was instructed to rise from supine/sitting to standing slowly to avoid falls. All medication changes were discussed with him, and all questions were answered to his satisfaction. PT eval indicated adequate conditioning to go home safely, and he was discharged to home. Discharge Exam - Head Exam Head Exam: ATRAUMATIC, NORMOCEPHALIC - Eye Exam Eye Exam: EOMI, Normal appearance Pupil Exam: PERRL - ENT Exam ENT Exam: Mucous Membranes Moist - Neck Exam Neck exam: Full Rom, Normal Inspection - Respiratory Exam Respiratory Exam: Clear to PA & Lateral, NORMAL BREATHING PATTERN. absent: Rales, Rhonchi, Wheezes - Cardiovascular Exam Cardiovascular Exam: Irregular Rhythm, +S1, +S2 - GI/Abdominal Exam GI & Abdominal Exam: Normal Bowel Sounds, Soft. absent: Tenderness - Extremities Exam Extremities exam: normal inspection - Neurological Exam Neurological exam: Alert, Oriented x3 - Psychiatric Exam Psychiatric exam: Normal Affect, Normal Mood - Skin Skin Exam: Dry, Intact Discharge Plan - Discharge Medications Prescriptions: Apixaban [Eliquis] 2.5 mg PO BID #60 diltiaZEM [Cardizem] 30 mg PO TID #90 tab levoFLOXacin [Levaquin] 250 mg PO DAILY #4 tab Lisinopril [Zestril] 5 mg PO DAILY #30 tab Vitamin B Complex/Vit C/Folic [Nephro-Natalie] 1 tab PO DAILY #30 tab - Follow Up Plan Condition: FAIR Disposition: HOME/ ROUTINE Instructions: Atrial Fibrillation (DC), Continuous Ambulatory Peritoneal Dialysis (DC), Hemodialysis (DC), Community Acquired Pneumonia (DC), Renal Cancer (DC), Hypertension (DC), End Stage Kidney Disease (DC) Additional Instructions: 1. Continue to take antibiotics as prescribed, until the course is complete, even if you feel better 2. Discontinue all previous blood pressure medications and instead take only Diltiazem three times daily (as prescribed) 3. Continue all other medications as discussed 4. Follow up with PCP within 1-2 weeks 5. Follow up with cardiology (Dr. Ann) within 1-2 weeks 6. For any new or worsening symptoms or concerns, contact PCP immediately or return to ER Referrals: Vinny Whiting MD [Staff Provider] - Bill Hammond MD [Staff Provider] - David Ann MD [Staff Provider] - <Pavan Duran - Last Filed: 04/13/17 19:26> Provider - Provider Date of Admission: 04/06/17 15:59 Attending physician: Vinny Whiting MD Hospital Course - Lab Results Lab Results: Most Recent Lab Values WBC 3.3 10^3/ul (4.5-11.0) L 04/11/17 06:20 RBC 4.21 10^6/uL (3.5-6.1) 04/11/17 06:20 Hgb 9.9 gm/dL (14.0-18.0) L 04/11/17 06:20 Hct 33.1 % (42.0-52.0) L 04/11/17 06:20 MCV 78.6 fL (80.0-105.0) L 04/11/17 06:20 MCH 23.5 pg (25.0-35.0) L 04/11/17 06:20 MCHC 29.9 g/dl (31.0-37.0) L 04/11/17 06:20 RDW 22.9 % (11.5-14.5) H 04/11/17 06:20 Plt Count 247 10^3/uL (120.0-450.0) 04/11/17 06:20 MPV 9.5 fl (7.0-11.0) 04/11/17 06:20 Gran % 46.7 % (50.0-68.0) L 04/11/17 06:20 Lymph % (Auto) 39.0 % (22.0-35.0) H 04/11/17 06:20 [place] % (Auto) 11.3 % (1.0-6.0) H 04/11/17 06:20 Eos % (Auto) 2.7 % (1.5-5.0) 04/11/17 06:20 Baso % (Auto) 0.3 % (0.0-3.0) 04/11/17 06:20 Gran # 1.53 (1.4-6.5) 04/11/17 06:20 Lymph # 1.3 (1.2-3.4) 04/11/17 06:20 [place] # 0.4 (0.1-0.6) 04/11/17 06:20 Eos # 0.1 (0.0-0.7) 04/11/17 06:20 Baso # 0.01 K/mm3 (0.0-2.0) 04/11/17 06:20 Neutrophils % (Manual) 73 % (50.0-70.0) H 04/10/17 06:20 Band Neutrophils % 1 % (0-2) 04/10/17 06:20 Lymphocytes % (Manual) 22 % (22.0-35.0) 04/10/17 06:20 Monocytes % (Manual) 4 % (1.0-6.0) 04/10/17 06:20 Eosinophils % (Manual) 4 % (0.0-3.0) H 04/08/17 06:30 Basophils % (Manual) 1 % (0.0-1.0) 04/08/17 06:30 Platelet Evaluation Normal (NORMAL) 04/10/17 06:20 Large Platelets Present 04/08/17 06:30 Giant Platelets Present 04/08/17 06:30 Hypochromasia 2+ 04/10/17 06:20 Poikilocytosis (manual Slight 04/10/17 06:20 Anisocytosis (manual) 1+ 04/10/17 06:20 Microcytosis (manual) 1+ 04/10/17 06:20 Sickle Cells Slight 04/08/17 06:30 Tear Drop Cells Slight 04/10/17 06:20 Ovalocytes Slight 04/10/17 06:20 Helmet Cells Slight 04/08/17 06:30 PT 11.8 Seconds (9.9-11.8) 04/06/17 12:38 INR 1.09 (0.93-1.08) H 04/06/17 12:38 APTT 32.2 Seconds (23.7-30.8) H 04/06/17 12:38 Sodium 136 mmol/L (132-148) 04/11/17 06:20 Potassium 3.9 mmol/L (3.6-5.0) 04/11/17 06:20 Chloride 99 mmol/L (98-107) 04/11/17 06:20 Carbon Dioxide 29 mmol/L (21-33) 04/11/17 06:20 Anion Gap 12 (10-20) 04/11/17 06:20 BUN 19 mg/dL (7-21) 04/11/17 06:20 Creatinine 6.0 mg/dL (0.5-1.4) H 04/11/17 06:20 Est GFR ( Amer) 12 04/11/17 06:20 Est GFR (Non-Af Amer) 10 04/11/17 06:20 Random Glucose 82 mg/dL (70-110) 04/11/17 06:20 Calcium 8.9 mg/dL (8.4-10.5) 04/11/17 06:20 Phosphorus 3.3 mg/dL (2.5-4.5) 04/11/17 06:20 Magnesium 2.1 mg/dL (1.7-2.2) 04/11/17 06:20 Total Bilirubin 0.7 mg/dL (0.2-1.3) 04/11/17 06:20 AST 36 U/L (15-59) 04/11/17 06:20 ALT 20 U/L (7-56) 04/11/17 06:20 Alkaline Phosphatase 51 U/L (38-133) 04/11/17 06:20 Troponin I 0.02 ng/mL 04/10/17 17:55 NT-Pro-B Natriuret Pep 81233 pg/mL (0-450) H 04/06/17 14:15 Total Protein 6.1 g/dL (5.8-8.3) 04/11/17 06:20 Albumin 3.5 g/dL (3.0-4.8) 04/11/17 06:20 Globulin 2.6 gm/dL 04/11/17 06:20 Albumin/Globulin Ratio 1.3 (1.1-1.8) 04/11/17 06:20 Procalcitonin 0.77 NG/ML (0.19-0.49) H 04/07/17 08:20 TSH 3rd Generation 3.07 mIU/mL (0.46-4.68) 04/06/17 21:00 HIV 1&2 Ag/Ab, 4th Gen Nonreactive (Nonreactive) 04/11/17 07:30 Ur L.pneumophila Ag Negative (NEGATIVE) 04/07/17 06:00 Blood Type A POSITIVE 04/08/17 07:45 Antibody Screen Negative 04/08/17 07:45 BBK History Checked Patient has bt 04/08/17 07:45 Attending/Attestation - Attestation I have personally seen and examined this patient.: Yes I have fully participated in the care of the patient.: Yes I have reviewed all pertinent clinical information, including history, physical exam and plan: Yes Notes (Text): 04/13/17 19:26 Medical record note made by the resident after discussion with my direction and input after the patient was personally seen and examined by me. I have reviewed the chart and agree that the record accurately reflects by personal performance of the history, physical exam, data review, and medical decision-making, in the course for the patient. I have also personally directed the plan of care.
--- NOTE | 2017-04-12 02:07 | PN ---
SUBJECTIVE: The patient is in bed, in no acute distress. PHYSICAL EXAMINATION: VITAL SIGNS: Temperature is 97, blood pressure is 110/70, respiratory rate of 18 and heart rate of 73. HEENT: Unremarkable. NECK: Supple. LUNGS: Decreased breath sounds. HEART: Normal S1 and S2. ABDOMEN: Soft and nontender. LABORATORY DATA: Reveals a white count of 3.3, hemoglobin 9, platelets 247. Chemistries reveals a BUN of 19, creatinine of 6.0. Urine for Legionella antigen is negative and microbiology reveals the blood cultures of no growth. ASSESSMENT AND PLAN: He is a 57-year-old seen early this morning in room 560, where he was admitted with a right lower lobe multifocal healthcare-associated pneumonia and p.o. Levaquin complete therapy. Follow up resolution of the imaging and follow up regarding the leukopenia, HIV test pending. Segundo Segura MD
--- NOTE | 2017-04-12 03:09 | CON ---
DATE: 04/11/2017 REASON FOR CONSULTATION: Pancytopenia. HISTORY OF PRESENT ILLNESS: The patient is a 57-year-old male with past medical history significant for multiple medical problems including history of renal cancer, status post renal transplant 12 years ago; currently end-stage renal disease, on hemodialysis; history of hypertension; gout; atrial fibrillation; hyperlipidemia, now admitted with weakness and changes in mental status; also noted to have pancytopenia. He does admit to having low-grade fevers, cough, some shortness of breath as well as he has been abusing alcohol. Denies any abdominal pain. No diarrhea. No constipation. No headache. No prior history of low blood counts as per the patient, especially not requiring any treatment for the above. PAST MEDICAL HISTORY: As above, end-stage renal disease, on hemodialysis; atrial fibrillation; hypertension; gout; renal CA approximately 12 years ago at which point he underwent renal transplant. ALLERGIES: NO KNOWN DRUG ALLERGIES. MEDICATIONS AT HOME: Include Sensipar, Zemplar, verapamil, Eliquis, 5 mg of prednisone, colchicine, Ambien, amiodarone, hydralazine, Lasix, and Coreg. SOCIAL HISTORY: Positive for alcohol abuse, but denies any drug abuse or tobacco use. FAMILY HISTORY: Noncontributory. REVIEW OF SYSTEMS: As per the HPI. PHYSICAL EXAMINATION: VITAL SIGNS: Reveal temperature of 97.6, pulse of 80, respiratory rate of 18, and blood pressure of 100/64. GENERAL: The patient is a middle-aged male, thin built, lying in bed, in no acute distress. HEENT: Head is normocephalic and atraumatic. Eyes, pupils are round and reactive to light and accommodation. Extraocular muscles are intact. There is pallor ------ noted. NECK: Supple with no adenopathy. No JVD. No thyromegaly. LUNGS: Bilateral rhonchi are heard in all lung cadena. CARDIOVASCULAR: S1 and S2 are heard. He is not tachycardic. ABDOMEN: Positive bowel sounds, soft, nontender, and nondistended. No organomegaly is palpated. EXTREMITIES: There is no edema, clubbing, or cyanosis. LABORATORY DATA: Reveal a white count of 3.3, hemoglobin of 9.9, hematocrit of 33.1, MCV of 78.6, and a platelet count of 247. Chemistries reveal BUN and creatinine of 19 and 6.0. All other electrolytes are within normal limits. He had a CT of the chest done, which showed bilateral opacities consistent with pneumonia. There is no evidence of masses and his abdominal CT also does not reveal any evidence of malignancy. ASSESSMENT AND PLAN: Middle-aged male with multiple medical problems including end-stage renal failure, anemia, thrombocytopenia, and leukopenia consistent with recent ETOH abuse, also has significant iron deficiency from his renal disease as well as chronic hemodialysis. We will start the patient on IV Venofer at this point and continue supplements with his hemodialysis. Thank you for the consult. We will follow. Dread Hurtado MD
== END 2017-04-11 17:00 | disposition home or self-care (01) | DRG 871 ==
LOC: ED 12:11 → ERH 15:59 → 5RNO 17:56
PROVIDERS: ADMIT Internal Medicine; ATTEND Internal Medicine
PROC: 5A1D60Z (ICD-10-PCS; principal; 2017-04-09)
DX: A41.9 Sepsis, unspecified organism (principal); J18.9 Pneumonia, unspecified organism; I13.2 Hypertensive heart and chronic kidney disease with heart failure and with stage 5 chronic kidney disease, or end stage renal disease; N18.6 End stage renal disease; I50.22 Chronic systolic (congestive) heart failure; N25.81 Secondary hyperparathyroidism of renal origin; Z94.0 Kidney transplant status; I48.2 Chronic atrial fibrillation; I27.2 Other secondary pulmonary hypertension; E83.39 Other disorders of phosphorus metabolism; M10.9 Gout, unspecified; E87.6 Hypokalemia; Y95 Nosocomial condition; J32.0 Chronic maxillary sinusitis; K59.00 Constipation, unspecified; D50.9 Iron deficiency anemia, unspecified; D63.1 Anemia in chronic kidney disease; E78.5 Hyperlipidemia, unspecified; Z99.2 Dependence on renal dialysis

== ENCOUNTER 2017-05-22 20:39 | Observation (INO) | payer MEDICARE, OTHER ==
[2017-05-22 21:29] VITALS: BMI 22.6
--- NOTE | 2017-05-22 22:16 | ED PDOC ---
Arrival/HPI - General Chief Complaint: Weakness/Neurological Deficit Time Seen by Provider: 05/22/17 21:46 Historian: Patient - History of Present Illness Narrative History of Present Illness (Text): 05/22/17 22:05 Asael Eldridge is a 57 year old male, whose past medical history includes ESRD on dialysis MWF, kidney transplant, A-fib on Eliquis, hypertension, gout and pneumonia, presents to the emergency department complaining of 3-4 week duration of generalized weakness associated with vomiting and diarrhea. Patient states he has been experiencing unexplained frequent falls.Doesn't recollect what precipitates the falls.Hurt his left anterior rib area 3 weeks ago. Also reports that he has decreased appetite and muscle cramps. Last dialysis was 3 days prior, and skipped dialysis yesterday due to weakness. Denies any fever, headache, dizziness, chest pain, shortness of breath, abdominal pain, or any other complaints at this time. Time/Duration: Other (3-4 weeks ) Symptom Onset: Gradual Activities at Onset: Light Context: Home Past Medical History - Provider Review Nursing Documentation Reviewed: Yes - Infectious Disease Hx of Infectious Diseases: None - Tetanus Immunization Tetanus Immunization: Unknown - Cardiac Hx Cardiac Disorders: Yes Hx Atrial Fibrillation: Yes Hx Hypertension: Yes - Pulmonary Hx Respiratory Disorders: Yes (PE) Hx Pneumonia: Yes (04-06-17) - Neurological Hx Neurological Disorder: No - HEENT Hx HEENT Disorder: Yes (CHRONIC L MAXILLARY SINUSITIS) - Renal Hx Renal Disorder: Yes Hx Dialysis: Yes () Hx Renal Cancer: Yes Other/Comment: kidney transplant 2004 - Endocrine/Metabolic Hx Endocrine Disorders: No - Hematological/Oncological Hx Blood Disorders: Yes Hx Anemia: Yes Hx Cancer: Yes (RENAL) - Integumentary Hx Dermatological Disorder: Yes (L AV FISTULA) - Musculoskeletal/Rheumatological Hx Falls: No - Gastrointestinal Hx Gastrointestinal Disorders: Yes (RECTAL BLEED) - Genitourinary/Gynecological Hx Genitourinary Disorders: No - Psychiatric Hx Psychophysiologic Disorder: Yes (INSOMNIA) Hx Substance Use: No - Surgical History Hx Kidney Transplant: Yes (2004) Hx Orthopedic Surgery: Yes (right rotator cuff) Other/Comment: L av fistula - Anesthesia Hx Anesthesia: Yes Hx Anesthesia Reactions: No Hx Malignant Hyperthermia: No Family/Social History - Physician Review Nursing Documentation Reviewed: Yes Family/Social History: No Known Family HX Smoking Status: Never Smoked Hx Alcohol Use: No Hx Substance Use: No Allergies/Home Meds Allergies/Adverse Reactions: Allergies No Known Allergies Allergy (Verified 05/22/17 21:29) Home Medications: Home Meds Medication Instructions Recorded Confirmed Calcium Acetate [Phoslo] 667 mg PO TID 04/06/17 05/22/17 Colchicine [Colcrys] 0.6 mg PO 2XW 04/06/17 05/22/17 Ferrous Sulfate [Feosol] 325 mg PO DAILY 04/06/17 05/22/17 Folic Acid 1 mg PO DAILY 04/06/17 05/22/17 Zolpidem [Ambien] 10 mg PO HS 04/06/17 05/22/17 predniSONE [predniSONE Tab] 5 mg PO DAILY 04/06/17 05/22/17 Review of Systems - Physician Review All systems were reviewed & negative as marked: Yes - Review of Systems Constitutional: Fatigue (generalized fatigue ). absent: Fevers Respiratory: Normal. absent: SOB, Cough, Sputum Cardiovascular: Normal. absent: Chest Pain, Palpitations (+) Gastrointestinal: Normal, Diarrhea, Nausea, Vomiting Neurological: Normal. absent: Headache, Dizziness Psychiatric: Normal Physical Exam Vital Signs Reviewed: Yes Vital Signs Temp Pulse Resp BP Pulse Ox 05/23/17 02:47 97 H 18 131/81 100 05/23/17 02:28 102 H 17 112/55 L 100 05/22/17 23:03 116 H 16 112/82 100 05/22/17 21:28 98.7 F 70 18 110/77 99 Temperature: Afebrile Blood Pressure: Normal Pulse: Regular Respiratory Rate: Normal Appearance: Positive for: Well-Appearing, Non-Toxic, Comfortable Pain Distress: None Mental Status: Positive for: Alert and Oriented X 3 - Systems Exam Head: Present: Atraumatic, Normocephalic Pupils: Present: PERRL Conjunctiva: Present: Normal Mouth: Present: Moist Mucous Membranes Respiratory/Chest: Present: Clear to Auscultation, Good Air Exchange. No: Respiratory Distress, Accessory Muscle Use Cardiovascular: Present: Regular Rate and Rhythm, Normal S1, S2. No: Murmurs Abdomen: Present: Normal Bowel Sounds. No: Tenderness, Distention, Peritoneal Signs Upper Extremity: Present: Normal Inspection. No: Cyanosis, Edema Lower Extremity: Present: Normal Inspection. No: Edema Neurological: Present: GCS=15, CN II-XII Intact, Speech Normal Skin: Present: Warm, Dry, Normal Color. No: Rashes Psychiatric: Present: Alert, Oriented x 3, Normal Insight, Normal Concentration Medical Decision Making ED Course and Treatment: 05/22/17 22:20 Impression: A 57 year old male who presents to the emergency department complaining of generalized weakness associated with nausea, vomiting, and diarrhea. Plan: -- EKG -- Labs, cardiac enzymes -- CXR -- Reassess and disposition Progress Notes: 05/23/17 01:14 CXR interpreted by me: No acute process. EKG interpreted by me: A-fib @ 118 bpm. Non specific T wave changes. 05/23/17 03:05 Case discussed with hospitalist, Dr. Lyon, who is aware and agrees with the plan to observe patient at telemetry for near syncope. Accepts patient under hospitalist service. Patient aware and agrees with the plan. - Lab Interpretations Lab Results: 05/22/17 22:35 05/22/17 22:35 Lab Results 05/22/17 22:35: pO2 30, VBG pH 7.39, VBG pCO2 50.0, VBG HCO3 30.3 H, VBG Total CO2 31.8 H, VBG O2 Sat (Calc) 55.9, VBG Base Excess 4.3 H, VBG Potassium 4.0, Sodium 136.0, Chloride 97.0 L, Glucose 78, Lactate 1.5, FiO2 21.0, Venous Blood Potassium 4.0 05/22/17 22:35: WBC 3.6 L, RBC 4.73, Hgb 11.1 L, Hct 35.4 L, MCV 74.8 L, MCH 23.5 L, MCHC 31.4, RDW 22.7 H, Plt Count 220 05/22/17 22:35: Sodium 136, Chloride 95 L, Potassium 4.0, Carbon Dioxide 27, Anion Gap 18, BUN 47 H, Creatinine 12.4 H*, Est GFR ( Amer) 5, Est GFR ( Non-Af Amer) 4, Random Glucose 76, Calcium 10.0, Total Bilirubin 0.8, AST 30, ALT 29, Alkaline Phosphatase 82, Lactate Dehydrogenase 399, Total Creatine Kinase 48, Troponin I 0.03 D, Total Protein 6.1, Albumin 3.7, Globulin 2.4, Albumin/Globulin Ratio 1.5, Lipase 92 05/22/17 22:35: PT 11.4, INR 1.06, APTT 35.0 H - RAD Interpretation Radiology Orders: 05/22/17 22:05 CHEST PORTABLE [RAD] Stat 05/23/17 01:52 HEAD W/O CONTRAST [CT] Stat - Medication Orders Current Medication Orders: Discontinued Medications Morphine Sulfate (Morphine) 2 mg IVP STAT STA Stop: 05/23/17 01:25 Last Admin: 05/23/17 02:15 Dose: 2 mg - Scribe Statement The provider has reviewed the documentation as recorded by the Piper Evangelista Provider Attestation: All medical record entries made by the Florinibcinthia were at my direction and personally dictated by me. I have reviewed the chart and agree that the record accurately reflects my personal performance of the history, physical exam, medical decision making, and the department course for this patient. I have also personally directed, reviewed, and agree with the discharge instructions and disposition. Disposition/Present on Arrival - Present on Arrival Any Indicators Present on Arrival: No History of DVT/PE: No History of Uncontrolled Diabetes: No Urinary Catheter: No History of Decub. Ulcer: No History Surgical Site Infection Following: None - Disposition Have Diagnosis and Disposition been Completed?: Yes Diagnosis: Near syncope, Frequent falls Disposition: HOSPITALIZED Disposition Time: 03:00 Patient Plan: Observation Patient Problems: Current Active Problems Problem Status Onset Frequent falls Acute Near syncope Acute Condition: STABLE Referrals: Conrado Correia DO [Primary Care Provider] - Follow up with primary Forms: [employer] (Kinyarwanda)
[2017-05-22 22:59] LABS: HEMATOCRIT 35.4 % (42.0-52.0); MEAN CELL VOLUME 74.8 fl (80.0-105.0); MEAN CORPUSCULAR HEMOGLOBIN 23.5 pg (25.0-35.0); MEAN CORPUSCULAR HGB CONC 31.4 g/dl (31.0-37.0); PLATELET COUNT 220 10^3/uL (120.0-450.0); RED CELL DISTRIBUTION WIDTH 22.7 % (11.5-14.5); WHITE BLOOD COUNT 3.6 10^3/ul (4.5-11.0)
[2017-05-22 23:03] LABS: VENOUS BLOOD GAS BASE EXCESS 4.3 mmol/L (0.0-2.0); VENOUS BLOOD PH 7.39 (7.32-7.43)
[2017-05-22 23:07] LABS: INR 1.06 (0.93-1.08)
[2017-05-22 23:17] LABS: ALB/GLOB RATIO 1.5 (1.1-1.8); BILIRUBIN,TOTAL 0.8 mg/dL (0.2-1.3); TOTAL PROTEIN 6.1 g/dL (5.8-8.3)
[2017-05-22 23:25] LABS: TROPONIN I 0.03 ng/mL
[2017-05-23] MEDS ORDERED: Morphine 2 mg/ml ISec IVP STA (01:24)
--- NOTE | 2017-05-23 03:13 | CP.PCM.HP ---
<RAJATTASHA - Last Filed: 05/23/17 04:13> History of Present Illness - History of Present Illness History of Present Illness: Tasha Forrester, PGY1, H&P for Dr. Lyon: CC: fatigue HPI: 57M with PMH ESRD on HD (MWF), afib on eliquis, HTN, presents for fatigue x past few days. Pt also complains of generalized weakness, insomnia x 5 days. Pt missed his last HD session on Sunday (d/t weakness), last HD session on Sunday. Pt fell 3 weeks ago, likely mechanical (tripped on curb), and hit his head and left side of his chest. Pt also c/o multiple episodes of nonbloody, nonbilious vomiting and watery diarrhea for past few days. Denies anorexia, f/c , palpitations, cp, sob, cough, abdominal pain, leg swelling, rashes. Pt c/o feeling depressed, and taking quite many zolpidem tablets per night (5-6 instead of one 10mg tablet), pt denies any suicidal or homicidal ideations, but states sobbingly that he "doesnt want to be here anymore." In ED, pt afebrile, HR 102 afib, bp 110/77, leukopenic 3.6, hgb 11.1, BUN/Cr 47/12.4, trop neg x1. Received morphine 2mg IV in ED. prev Hosp: [facility] at [facility] [place] (03/2017) PMH: ESRD on HD, Afib, HTN, gout, pneumonia PSH: Kidney transplant 12 years ago Soc: previous smoker, denies alcohol and illicits All: NKDA FHx: Siblings with kidney disease, mother NH, father HTN SH: Lives in house with and son. 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 Denies alcohol, tobacco, drug use. 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 - [facility] - Stanislaw Jensen Present on Admission - Present on Admission Any Indicators Present on Admission: No History of DVT/PE: No History of Uncontrolled Diabetes: No Urinary Catheter: No Decubitus Ulcer Present: No History Surgical Site Infection Following: None Review of Systems - Review of Systems All systems: reviewed and no additional remarkable complaints except Review of Systems: as per HPI Past Patient History - Infectious Disease Hx of Infectious Diseases: None - Tetanus Immunizations Tetanus Immunization: Unknown - Past Medical History & Family History Past Medical History?: Yes - Past Social History Smoking Status: Never Smoked - CARDIAC Hx Cardiac Disorders: Yes Hx Atrial Fibrillation: Yes Hx Hypertension: Yes - PULMONARY Hx Respiratory Disorders: Yes (PE) Hx Pneumonia: Yes (04-06-17) - NEUROLOGICAL Hx Neurological Disorder: No - HEENT Hx HEENT Problems: Yes (CHRONIC L MAXILLARY SINUSITIS) - RENAL Hx Chronic Kidney Disease: Yes Hx Dialysis: Yes (mwf) Hx Renal (Kidney) Cancer: Yes Other/Comment: kidney transplant 2004 - ENDOCRINE/METABOLIC Hx Endocrine Disorders: No - HEMATOLOGICAL/ONCOLOGICAL Hx Blood Disorders: Yes Hx Anemia: Yes Hx Cancer: Yes (RENAL) - INTEGUMENTARY Hx Dermatological Problems: Yes (L AV FISTULA) - MUSCULOSKELETAL/RHEUMATOLOGICAL Hx Falls: No - GASTROINTESTINAL Hx Gastrointestinal Disorders: Yes (RECTAL BLEED) - GENITOURINARY/GYNECOLOGICAL Hx Genitourinary Disorders: No - PSYCHIATRIC Hx Psychophysiologic Disorder: Yes (INSOMNIA) Hx Substance Use: No - SURGICAL HISTORY Hx Kidney Transplant: Yes (2004) Hx Orthopedic Surgery: Yes (right rotator cuff) Other/Comment: L av fistula - ANESTHESIA Hx Anesthesia: Yes Hx Anesthesia Reactions: No Hx Malignant Hyperthermia: No Meds Allergies/Adverse Reactions: Allergies Allergy/AdvReac Type Severity Reaction Status Date / Time No Known Allergies Allergy Verified 05/22/17 21:29 Physical Exam - Constitutional Appears: Older Than Stated Age, Chronically Ill - Head Exam Head Exam: ATRAUMATIC, NORMOCEPHALIC - Eye Exam Eye Exam: EOMI, PERRL. absent: Conjunctival injection, Scleral icterus Pupil Exam: NORMAL ACCOMODATION, PERRL. absent: Irregular, Unequal - ENT Exam ENT Exam: Mucous Membranes Dry - Neck Exam Neck exam: Negative for: Lymphadenopathy, Thyromegaly - Respiratory Exam Respiratory Exam: Chest Wall Tenderness, Clear to Auscultation Bilateral. absent: Accessory Muscle Use, Rales, Rhonchi, Wheezes - Cardiovascular Exam Cardiovascular Exam: Tachycardia, Irregular Rhythm - GI/Abdominal Exam GI & Abdominal Exam: Normal Bowel Sounds, Soft. absent: Guarding, Rebound, Tenderness - Extremities Exam Extremities exam: Positive for: normal inspection, pedal pulses present. Negative for: calf tenderness, joint swelling, pedal edema - Back Exam Back exam: muscle spasm. absent: CVA tenderness (L), CVA tenderness (R), rash noted, vertebral tenderness - Neurological Exam Neurological exam: Alert, CN II-XII Intact, Oriented x3 - Psychiatric Exam Psychiatric exam: Depressed - Skin Skin Exam: Dry, Warm Results - Vital Signs Recent Vital Signs: Last Vital Signs Temp 98.7 F 05/22/17 21:28 Pulse 97 H 05/23/17 02:47 Resp 18 05/23/17 02:47 BP 131/81 05/23/17 02:47 Pulse Ox 100 05/23/17 02:47 - Labs Result Diagrams: 05/22/17 22:35 05/22/17 22:35 Labs: Laboratory Results - last 24 hr 05/22/17 05/22/17 05/22/17 22:35 22:35 22:35 WBC 3.6 L RBC 4.73 Hgb 11.1 L Hct 35.4 L MCV 74.8 L MCH 23.5 L MCHC 31.4 RDW 22.7 H Plt Count 220 PT 11.4 INR 1.06 APTT 35.0 H pO2 VBG pH VBG pCO2 VBG HCO3 VBG Total CO2 VBG O2 Sat (Calc) VBG Base Excess VBG Potassium Sodium 136 Chloride 95 L Glucose Lactate FiO2 Potassium 4.0 Carbon Dioxide 27 Anion Gap 18 BUN 47 H Creatinine 12.4 H* Est GFR ( Amer) 5 Est GFR (Non-Af Amer) 4 Random Glucose 76 Calcium 10.0 Total Bilirubin 0.8 AST 30 ALT 29 Alkaline Phosphatase 82 Lactate Dehydrogenase 399 Total Creatine Kinase 48 Troponin I 0.03 D Total Protein 6.1 Albumin 3.7 Globulin 2.4 Albumin/Globulin Ratio 1.5 Lipase 92 Venous Blood Potassium 05/22/17 22:35 WBC RBC Hgb Hct MCV MCH MCHC RDW Plt Count PT INR APTT pO2 30 VBG pH 7.39 VBG pCO2 50.0 VBG HCO3 30.3 H VBG Total CO2 31.8 H VBG O2 Sat (Calc) 55.9 VBG Base Excess 4.3 H VBG Potassium 4.0 Sodium 136.0 Chloride 97.0 L Glucose 78 Lactate 1.5 FiO2 21.0 Potassium Carbon Dioxide Anion Gap BUN Creatinine Est GFR ( Amer) Est GFR (Non-Af Amer) Random Glucose Calcium Total Bilirubin AST ALT Alkaline Phosphatase Lactate Dehydrogenase Total Creatine Kinase Troponin I Total Protein Albumin Globulin Albumin/Globulin Ratio Lipase Venous Blood Potassium 4.0 Assessment & Plan - Assessment and Plan (Free Text) Assessment: 57M with a PMH of ESRD on HD (missed 1 HD session), s/p renal transplant, now back on HD, atrial fibrillation, HTN, and gout, who presented to the ED with fatigue, uremia, acute on chronic renal failure, insomnia, anemia. Plan: Acute on chronic renal failure: - likely from missed HD session - BUN/Cr 47/12.4 (baseline Cr 6.0), started on NS @60/hr - Nephrology c/s. f/u recs. HD tomorrow as schedules. L arm fistula site has + bruit, patent. - C/w home med calcium acetate Gastroenteritis: - NPO. IVF. Zofran prn - Cont to monitor. Depression: - Pt states he "doesnt want to be here anymore," sobbingly. - States he took 6 tablets of zolpidem to sleep rather than the one 10 mg tablet he was originally prescribed. Will give Benadryl to sleep today. - Please obtain the correct dosage from pharmacy - f/u psych eval Hx of mechanical falls: - Head CT and CXR done, f/u results. Hx of afib: - On tele - C/w home cardizem - EKG shows HR 118, afib, qtc 487 ms. - Cont to monitor. - On home eliquis Hx of HTN: - C.w home lisinopril Hx of renal transplant: - C/w home prednisone, folic acid. - Continue Phoslo, Feosol, Paracalcitol, Folate - Continue Prednisone taper Hx of Anemia - likely anemia of chronic disease - cont to monitor. Hx of Gout: - C/w home med colchicine DVT PPX: scds/eliquis GI PPX: pepcid Discussed with Dr Lyon. Lorenza Forrester, PGY1 - Date & Time Date: 05/23/17 Time: 04:43 <Avery Lyon - Last Filed: 05/23/17 06:10> Results - Vital Signs Recent Vital Signs: Last Vital Signs Temp 97.8 F 05/23/17 05:30 Pulse 95 H 05/23/17 05:30 Resp 20 05/23/17 05:30 BP 109/72 05/23/17 05:30 Pulse Ox 100 05/23/17 02:47 - Labs Result Diagrams: 05/22/17 22:35 05/22/17 22:35 Attending/Attestation - Attestation I have personally seen and examined this patient.: Yes I have fully participated in the care of the patient.: Yes I have reviewed all pertinent clinical information: Yes Notes (Text): 05/23/17 06:09 Patient was seen when he was in bed 260-02. Agree with history, physical examination, assessment and plan.
[2017-05-23] MEDS: Sodium Chloride 0.9% 1,000 ML IV SCH ×2 (04:29→21:16)
--- NOTE | 2017-05-23 08:12 | CT ---
PROCEDURE: CT HEAD WITHOUT CONTRAST. HISTORY: near syncope COMPARISON: None available. TECHNIQUE: Axial computed tomography images were obtained through the head/brain without intravenous contrast. Radiation dose: Total exam DLP = 690 mGy-cm. This CT exam was performed using one or more of the following dose reduction techniques: Automated exposure control, adjustment of the mA and/or kV according to patient size, and/or use of iterative reconstruction technique. FINDINGS: HEMORRHAGE: No intracranial hemorrhage. BRAIN: No mass effect or edema. Minimal microvascular changes in the periventricular white matter. No acute findings VENTRICLES: Unremarkable. No hydrocephalus. CALVARIUM: Unremarkable. PARANASAL SINUSES: Unremarkable as visualized. No significant inflammatory changes. MASTOID AIR CELLS: Unremarkable as visualized. No inflammatory changes. OTHER FINDINGS: The report concurs with the preliminary [facility] report IMPRESSION: No acute findings
--- NOTE | 2017-05-23 09:25 | RAD ---
HISTORY: weak COMPARISON: 04/08/2017 FINDINGS: LUNGS: No active pulmonary disease. PLEURA: No significant pleural effusion identified, no pneumothorax apparent. CARDIOVASCULAR: Moderate cardiomegaly OSSEOUS STRUCTURES: No significant abnormalities. VISUALIZED UPPER ABDOMEN: Normal. OTHER FINDINGS: None. IMPRESSION: No active disease.
[2017-05-23 12:40] LABS: BASO # 0.01 K/mm3 (0.0-2.0); BASO % 0.3 % (0.0-3.0); EOS # 0.1 (0.0-0.7); EOS % 1.6 % (1.5-5.0); GRAN # 1.62 (1.4-6.5); GRAN % 52.3 % (50.0-68.0); LYMPH % 31.9 % (22.0-35.0); MEAN CELL VOLUME 73.7 fl (80.0-105.0); MEAN CORPUSCULAR HEMOGLOBIN 23.7 pg (25.0-35.0); MEAN CORPUSCULAR HGB CONC 32.1 g/dl (31.0-37.0); MONO # 0.4 (0.1-0.6); MONO % 13.9 % (1.0-6.0); PLATELET COUNT 194 10^3/uL (120.0-450.0); RED CELL DISTRIBUTION WIDTH 22.2 % (11.5-14.5); WHITE BLOOD COUNT 3.1 10^3/ul (4.5-11.0)
[2017-05-23 12:54] LABS: ALB/GLOB RATIO 1.4 (1.1-1.8); BILIRUBIN,TOTAL 0.7 mg/dL (0.2-1.3); CALCIUM 9.6 mg/dL (8.4-10.5); MAGNESIUM 1.9 mg/dL (1.7-2.2); PHOSPHOROUS 5.5 mg/dL (2.5-4.5); POTASSIUM 3.3 mmol/L (3.6-5.0); TOTAL PROTEIN 5.6 g/dL (5.8-8.3)
--- NOTE | 2017-05-23 17:54 | CARD ---
APPROVED REPORT EKG Measurement Heart [id number] <Conclusion> Atrial fibrillation with rapid ventricular response Nonspecific T wave abnormality, probably digitalis effect Abnormal ECG
[2017-05-23] MEDS: Multivitamin Vitamin B Complex (Nephro-Vite) Tab PO SCH (18:10)
--- NOTE | 2017-05-23 18:26 | US ---
HISTORY: Leg pain and swelling. Evaluate for DVT PHYSICIAN(S): David Reyes MD. TECHNIQUE: Duplex sonography and color-flow Doppler with graded compression were used to evaluate the deep venous systems of both lower extremities. FINDINGS: The visualized deep venous systems of both lower extremities are sonographically normal and compressible. Normal wave forms and augmentation are seen. There is no sonographic evidence for deep venous thrombosis in the visualized segments of both lower extremities. IMPRESSION: No sonographic evidence for deep venous thrombosis in the visualized segments of both lower extremities.
--- NOTE | 2017-05-23 19:28 | CON ---
DATE: NEPHROLOGY CONSULTATION HISTORY OF PRESENT ILLNESS: A 57-year-old male with past medical history of hypertension, atrial fibrillation on Eliquis, ESRD on hemodialysis ([facility] at [facility], Business Development Engineer Dr. Mikey Dover); status post failed renal transplant (2011, back on dialysis since past 6 months), presented to ED overnight with chief complaint of inability to sleep for past 2 days; the patient was admitted with lethargy and failure to thrive with possible gastroenteritis, and repeated falls; Nephrology being consulted for ESRD management. The patient reports that since restarting dialysis 6 months ago, he feels very lethargic after his dialysis treatments. He reports not gaining much weight in between treatments (reports coming off dialysis at approximately 72 kilos), also reporting recent hypotension on visit to dairy and food laboratory assistant's yesterday with systolic blood pressure in the 80s; the patient reports appetite has been fair. Reports urination has been scant lately. The patient gives history of falling twice over the past month, most recently 2 weeks ago and subsequently has been having left lower leg and knee pain. The patient denies any dyspnea on exertion, but does report some shortness of breath, as well as some bilateral lower chest pain since the past 2 days. The patient reports having soft stools lately. The patient also with vomiting x1 four days ago. Last hemodialysis treatment was 5 days ago with the patient missing his routine treatment 2 days ago due to feeling ill. PAST MEDICAL HISTORY: As above. Also with history of gout. Recently hospitalized in 03/2017 with pneumonia. SOCIAL HISTORY: Previous smoker. FAMILY HISTORY: Two children on dialysis. Sister was on dialysis (does not know about any renal biopsy diagnosis). REVIEW OF SYSTEMS: CONSTITUTIONAL: Lethargy. HEENT: No change in vision. No difficulty swallowing. RESPIRATORY: Mild shortness of breath. CARDIOVASCULAR: Denies feeling palpitations. Reporting recent chest pain. GASTROINTESTINAL: Per HPI. GENITOURINARY: Scant urine. Mild dysuria. Denies any makenzie hematuria or other discharge. SKIN: Denies any itching or rashes. EXTREMITIES: Denies any swelling in legs. MUSCULOSKELETAL: Left lower extremity pain. PSYCHIATRIC: Insomnia. Reports improvement with using 6 tablets of 10 mg Ambien. PHYSICAL EXAMINATION: GENERAL: No distress. Conversing coherently in full sentences. Mildly lethargic. VITAL SIGNS: This morning blood pressure 122/88, heart rate 104, respirations 20, temperature 98.2, and O2 sat 100% on room air. HEENT: Moist mucous membranes. Nonicteric. NECK: No JVD. RESPIRATORY: Lungs clear to auscultation bilaterally. No rales. No rhonchi. No wheezes. CARDIOVASCULAR: Heart S1 and S2 normal. No murmurs. No gallops. No rubs. Irregular rate. GASTROINTESTINAL: Abdomen is soft. Minimal lower quadrant tenderness. Nondistended. GENITOURINARY: No bladder distention, but mild tenderness on palpation. EXTREMITIES: Left lower extremity warmer than right, particularly adjacent to the knee. SKIN: Warm. No cyanosis. PSYCHIATRIC: Normal affect. Normal mood. VASCULAR: Distal pulses, good bilateral dorsalis pedis pulses. No carotid bruits. LABORATORY DATA: Chest x-ray directly visualized. Lungs appear clear. ASSESSMENT AND PLAN: 1. Lethargy, unclear, etiology. The patient does report hypotension yesterday. Possible that the patient is having failure to thrive. Serum albumin is somewhat below goal from admission. Recommend to check TSH. We will avoid aggressive ultrafiltration on hemodialysis today. We will aim for net ultrafiltration of just 1 L to avoid hypotension. 2. Endstage renal disease on hemodialysis in a patient with stable volume and electrolyte status despite having missed dialysis treatment 2 days ago (especially with last dialysis coming before the weekend) indicates that the patient is having poor p.o. intake. Dialyzing today per routine, mainly for clearance on 3 potassium, 2.5 calcium, and 32 bicarbonate that with an ultrafiltration of 1 L. 3. Hypertensive endstage renal disease. The patient is on Cardizem 30 mg t.i.d. and lisinopril 5 mg daily at home. In setting of hypotension recommend to hold lisinopril. May need to continue with Cardizem for rate control. 4. Immunosuppression. The patient is status post renal allograft, only on prednisone 5 mg daily, should continue the same. 5. Chest pain in the setting of decreased mobility and with the patient having left lower extremity warmth and tenderness. Recommend to get lower extremity venous Duplex. 6. Chronic kidney disease, mineral and bone disease. Continue PhosLo 1 tablet t.i.d. with meals as phos is mildly elevated. Randolph Dave MD [facility] # [id number] PABLO
--- NOTE | 2017-05-24 00:26 | CON ---
DATE: HISTORY OF PRESENT ILLNESS: The patient is a 57-year-old male with not known previous psychiatric history of multiple medical issues including end-stage renal disease, on hemodialysis; Afib, on Eliquis and hypertension. The patient was admitted on medical side for weakness and diarrhea. Psych consult was called for evaluation of mood symptoms as well as insomnia. The patient also was misusing and abusing Ambien. The patient presented to be depressed, crying. The patient was saying that he is depressed over his medical condition. The patient also reported that he was not able to sleep and he was using about 10 pills of 10 mg of Ambien at night in order to stay asleep. We will try to educate the patient about importance to take medication as it was prescribed and dangerous . The patient was crying nonstop and saying that he needed to sleep and he cannot sleep. This promotion writer offered Remeron for depressive symptoms as well as for insomnia and it will be safe for the patient in order not to damage his kidneys anymore. The patient verbalized understanding and willing to try. The patient also complained that he feeling very anxious and Ativan was offered. The patient was willing to take that medication. Besides that, the patient denies visual, auditory, or tactile hallucinations. Denied paranoid ideation. The patient does not appear to be psychotic. Per psychiatric history, the patient denied being evaluate by psychiatrist and denied suicidal attempts in the past. The patient has denied using drugs. Denied using alcohol. MEDICATION: Reviewed, PhosLo, colchicine, Cardizem, Pepcid, Feosol, folic acid, Zestril, Ativan, will started 0.5 mg three times a day for anxiety, Remeron 15 mg at the nighttime for depression and insomnia, prednisone, sodium chloride, vitamin B complex. This promotion writer educated the patient about risks, benefits, and alternatives of the medication. The patient verbalized understanding. PHYSICAL EXAMINATION: VITAL SIGNS: Reviewed, temperature 98.2, pulse is 121, blood pressure 122/88, and respirations 20. MENTAL STATUS EXAMINATION: The patient presented to be alert, tearful, no eye contact. Speech was under productive and low volume. Mood described as depressed and anxious. Affect was tearful. Mood was congruent. Thought process coherent and goal directed. Thought content, the patient denied visual, auditory, or tactile hallucinations. Denied paranoid ideations. The patient denied thoughts of harming himself or others, but expressed wish to be because of chronic insomnia and pain and medical issues. Insight and judgment fair. Impulses are well controlled. IMPRESSION: Rule out mood disorder due to general medical condition, rule out anxiety disorder due to general medical condition. The patient has multiple medical issues, please see above. PLAN: This promotion writer initiated Remeron 15 mg at the nighttime for depression and insomnia. The patient was educated not to take more medication than it was prescribed, including Ambien and Ativan 0.5 mg three times a day as needed for anxiety. This promotion writer will follow up and advice accordingly. Should you have any questions give me a call back. Thank you very much. Nat Alvarenga MD
[2017-05-24 06:08] LABS: EOS % 0.6 % (1.5-5.0); GRAN # 1.87 (1.4-6.5); GRAN % 58.1 % (50.0-68.0); HEMATOCRIT 35.5 % (42.0-52.0); LYMPH # 0.9 (1.2-3.4); LYMPH % 27.6 % (22.0-35.0); MEAN CELL VOLUME 75.9 fl (80.0-105.0); MEAN CORPUSCULAR HEMOGLOBIN 23.3 pg (25.0-35.0); MEAN CORPUSCULAR HGB CONC 30.7 g/dl (31.0-37.0); MONO # 0.4 (0.1-0.6); MONO % 13.7 % (1.0-6.0); PLATELET COUNT 210 10^3/uL (120.0-450.0); WHITE BLOOD COUNT 3.2 10^3/ul (4.5-11.0)
[2017-05-24 06:36] LABS: ALB/GLOB RATIO 1.4 (1.1-1.8); BILIRUBIN,TOTAL 0.7 mg/dL (0.2-1.3); CALCIUM 9.4 mg/dL (8.4-10.5); POTASSIUM 4.5 mmol/L (3.6-5.0); TOTAL PROTEIN 5.7 g/dL (5.8-8.3)
[2017-05-24 06:47] LABS: RED CELL DISTRIBUTION WIDTH 22.8 % (11.5-14.5)
--- NOTE | 2017-05-24 09:30 | PN ---
DATE: 05/24/2017 SUBJECTIVE: The patient has no complaints of any chest pain. No shortness of breath. No headaches. PHYSICAL EXAMINATION: VITAL SIGNS: Temperature is 99, pulse of 107, blood pressure is 103/77, respiration is 20. GENERAL: The patient is lying in bed, flat, comfortable. HEENT: No oral lesion. Anicteric sclerae. Moist mucosa. NECK: No JVD, adenopathy, or thyromegaly. CARDIOVASCULAR: S1 and S2, regular. No murmurs, rubs, or gallops. LUNGS: Clear to auscultation bilaterally. No wheeze, rales, or rhonchi. ABDOMEN: Bowel sounds are positive, soft, nontender and nondistended. EXTREMITIES: No cyanosis, clubbing or edema. LABORATORY DATA: Creatinine is 6.6. White count of 3.2. Lower extremity Doppler, no DVT. ASSESSMENT: 1. End-stage renal disease, on hemodialysis. 2. History of kidney transplant. 3. Secondary hyperparathyroidism. 4. Atrial fibrillation. 5. Gout. 6. Hypertension. PLAN: The patient is going to continue with dialysis. The patient's next dialysis will be on Sunday. The patient is on Cardizem for the atrial fibrillation. He is on PhosLo for secondary hyperparathyroidism. The patient is going to continue with lisinopril for hypertension. I will discontinue the patient's IV fluids. The patient is on prednisone. This can be continued. The patient is getting colchicine for his gout. He is comfortable. He has no swallowing. Jamin Duffy MD
[2017-05-24] MEDS: Multivitamin Vitamin B Complex (Nephro-Vite) Tab PO SCH (10:00)
--- NOTE | 2017-05-24 16:11 | CP.PCM.CON ---
<Vcik Steven - Last Filed: 05/24/17 15:56> History of Present Illness - History of Present Illness History of Present Illness: Neurology Consult Note for Dr. Simental service Consulted for: Falls and insomnia, near syncope HPI: This is a 57 yo AA M with PMH of ESRD on HD (MWF), afib on eliquis, HTN, gout, and a failed renal transplant who presented to [facility] [place] with fatigue, generalized weakness, and insomnia x5 days, as well as 2 falls with head trauma ~3 weeks prior. As per patient, both falls were mechanical; first was due to tripping on a curb and the second was due to stepping in a divot in a sidewalk he didn't see, thus losing his balance. He acknowledges head trauma for both instances, but denies LOC, memory loss, vision loss or changes after, nausea/ emesis after, or changed balance as a result. Only complaint from the falls is L knee pain, which didn't initially hurt from the fall, but has since developed , persisted, and continues to bother him. Reports baseline poor gait requiring use of a cane; no acute changes. He reported 3-4 days of emesis (non-bloody/non -bilious) and watery diarrhea to the admitting team, but when queried about this during this exam, says he has had no further episodes since arrival. Last dialysis was Sunday, missed Sunday's dialysis due to general malaise/weakness. He does report dizziness and occasional sensation of room-spinning during and after dialysis, which he states isn't new, but denies any other occurrence of these symptoms. He also reported general depressive issues to admitting team, stating to them that he "doesn't want to be here anymore," but currently denies SI. Denies chest pain, dyspnea, cough, fevers/chills, focal weakness/ paresthesias, hematuria/dysuria (still makes some urine), or current dizziness/ room-spinning. PMH: as above PSH: Kidney transplant 12 years ago SHx: previous smoker, denies alcohol and illicits Lives with and son, ambulates with cane, independent in ADLs/IADLS FHx: Siblings with kidney disease, mother [place], father HTN PCP: Dr. Correia Review of Systems - Review of Systems All systems: reviewed and no additional remarkable complaints except (as per HPI ) Past Patient History - Infectious Disease Hx of Infectious Diseases: None - Tetanus Immunizations Tetanus Immunization: Unknown - Past Medical History & Family History Past Medical History?: Yes - Past Social History Smoking Status: Former Smoker - CARDIAC Hx Cardiac Disorders: Yes Hx Hypertension: Yes - PULMONARY Hx Respiratory Disorders: Yes (PE) Hx Pneumonia: Yes (04-06-17) - NEUROLOGICAL Hx Neurological Disorder: No - HEENT Hx HEENT Problems: Yes (CHRONIC L MAXILLARY SINUSITIS) - RENAL Hx Chronic Kidney Disease: Yes Hx Dialysis: Yes (mwf) Hx Renal (Kidney) Cancer: Yes Other/Comment: kidney transplant 2004 - ENDOCRINE/METABOLIC Hx Endocrine Disorders: No - HEMATOLOGICAL/ONCOLOGICAL Hx Blood Disorders: Yes Hx Anemia: Yes Hx Cancer: Yes (RENAL) - INTEGUMENTARY Hx Dermatological Problems: Yes (L AV FISTULA) - MUSCULOSKELETAL/RHEUMATOLOGICAL Hx Falls: No - GASTROINTESTINAL Hx Gastrointestinal Disorders: Yes (RECTAL BLEED) - GENITOURINARY/GYNECOLOGICAL Hx Genitourinary Disorders: No - PSYCHIATRIC Hx Psychophysiologic Disorder: Yes (INSOMNIA) - SURGICAL HISTORY Hx Kidney Transplant: Yes (2004) Hx Orthopedic Surgery: Yes (right rotator cuff) Other/Comment: L av fistula - ANESTHESIA Hx Anesthesia: Yes Hx Anesthesia Reactions: No Hx Malignant Hyperthermia: No Meds Allergies/Adverse Reactions: Allergies Allergy/AdvReac Type Severity Reaction Status Date / Time No Known Allergies Allergy Verified 05/22/17 21:29 - Medications Medications: Current Medications Calcium Acetate (Phoslo) 667 mg PO WM [facility] Last Admin: 05/24/17 12:06 Dose: 667 mg Colchicine (Colocrys) 0.6 mg PO 2XW [facility] Last Admin: 05/24/17 10:00 Dose: 0.6 mg Diltiazem HCl (Cardizem) 30 mg PO TID [facility] Last Admin: 05/24/17 14:30 Dose: 30 mg Famotidine (Pepcid) 20 mg PO 1000,2200 [facility] Last Admin: 05/24/17 09:59 Dose: 20 mg Ferrous Sulfate (Feosol) 324 mg PO DAILY [facility] Last Admin: 05/24/17 10:00 Dose: 324 mg Folic Acid (Folic Acid) 1 mg PO DAILY [facility] Last Admin: 05/24/17 09:59 Dose: 1 mg Lisinopril (Zestril) 5 mg PO DAILY [facility] Last Admin: 05/24/17 10:00 Dose: 5 mg Lorazepam (Ativan) 0.5 mg PO TID PRN; Protocol PRN Reason: Anxiety Last Admin: 05/23/17 18:22 Dose: 0.5 mg Mirtazapine (Remeron) 30 mg PO [facility] Prednisone (Prednisone Tab) 5 mg PO DAILY [facility] Last Admin: 05/24/17 10:01 Dose: 5 mg Vitamin B Complex/Vit C/Folic Acid (Nephro-Natalie) 1 tab PO DAILY [facility] Last Admin: 05/24/17 10:00 Dose: 1 tab Physical Exam - Constitutional Appears: Well, Non-toxic, No Acute Distress Additional comments: some discomfort due to L knee pain, but not acutely distressed - Head Exam Head Exam: ATRAUMATIC, NORMAL INSPECTION, NORMOCEPHALIC Additional comments: No bruising or scarring at sites where patient indicates he previously hit his head - Eye Exam Eye Exam: EOMI, Normal appearance, PERRL. absent: Conjunctival injection, Scleral icterus Pupil Exam: NORMAL ACCOMODATION, PERRL. absent: Fixed, Irregular, Unequal Additional comments: Sclera dirty, but not icteric (bilaterally) - ENT Exam ENT Exam: Mucous Membranes Moist. absent: Mucous Membranes Dry - Neck Exam Neck exam: Positive for: Full Rom, Normal Inspection. Negative for: Lymphadenopathy, Tenderness, Thyromegaly - Respiratory Exam Respiratory Exam: Clear to Auscultation Bilateral, NORMAL BREATHING PATTERN. absent: Accessory Muscle Use, Chest Wall Tenderness, Decreased Breath Sounds, Rales, Rhonchi, Wheezes - Cardiovascular Exam Cardiovascular Exam: Tachycardia, Irregular Rhythm, +S1, +S2. absent: Bradycardia, Clicks, REGULAR RHYTHM, JVD, RRR, +S4 - GI/Abdominal Exam GI & Abdominal Exam: Normal Bowel Sounds, Soft. absent: Diminished Bowel Sounds , Firm, Hyperactive Bowel Sounds, Hypoactive Bowel Sounds, Rigid, Tenderness - Rectal Exam Rectal Exam: Deferred - Extremities Exam Extremities exam: Positive for: full ROM, normal capillary refill, tenderness ( mild tenderness statically at and around L knee, not worsened with palpation), pedal pulses present (+1 dorsalis pedis and +2 radials bilaterally). Negative for: calf tenderness, joint swelling, pedal edema - Neurological Exam Neurological exam: Alert, CN II-XII Intact, Oriented x3 Additional comments: 5/5 muscle strength for all extremities in flexion and extension, 5/5 stem lead former strength bilaterally motor and sensory grossly intact and equal sided-sensory input intact, no extinction - Psychiatric Exam Psychiatric exam: Normal Affect, Normal Mood - Skin Skin Exam: Dry, Intact, Normal Color, Warm Results - Vital Signs Recent Vital Signs: Last Vital Signs Temp 97.8 F 05/24/17 12:00 Pulse 124 H 05/24/17 14:30 Resp 20 05/24/17 12:00 BP 102/68 05/24/17 14:30 Pulse Ox 98 05/24/17 06:00 - Labs Result Diagrams: 05/24/17 05:30 05/24/17 05:30 Labs: Laboratory Results - last 24 hr 05/24/17 05/24/17 05/24/17 05:30 05:30 12:50 WBC 3.2 L RBC 4.68 Hgb 10.9 L Hct 35.5 L MCV 75.9 L MCH 23.3 L MCHC 30.7 L RDW 22.8 H Plt Count 210 Gran % 58.1 Lymph % (Auto) 27.6 [place] % (Auto) 13.7 H Eos % (Auto) 0.6 L Baso % (Auto) 0.0 Gran # 1.87 Lymph # 0.9 L [place] # 0.4 Eos # 0.0 Baso # 0.00 Sodium 139 Potassium 4.5 Chloride 99 Carbon Dioxide 29 Anion Gap 16 BUN 19 Creatinine 6.6 H Est GFR ( Amer) 11 Est GFR (Non-Af Amer) 9 Random Glucose 81 Lactic Acid Calcium 9.4 Total Bilirubin 0.7 AST 28 ALT 24 Alkaline Phosphatase 73 Total Protein 5.7 L Albumin 3.4 Globulin 2.4 Albumin/Globulin Ratio 1.4 TSH 3rd Generation 2.03 05/24/17 12:50 WBC RBC Hgb Hct MCV MCH MCHC RDW Plt Count Gran % Lymph % (Auto) [place] % (Auto) Eos % (Auto) Baso % (Auto) Gran # Lymph # [place] # Eos # Baso # Sodium Potassium Chloride Carbon Dioxide Anion Gap BUN Creatinine Est GFR ( Amer) Est GFR (Non-Af Amer) Random Glucose Lactic Acid 1.4 Calcium Total Bilirubin AST ALT Alkaline Phosphatase Total Protein Albumin Globulin Albumin/Globulin Ratio TSH 3rd Generation Assessment & Plan - Assessment and Plan (Free Text) Assessment: This is a 57 yo AA M with PMH of ESRD on HD (MWF), afib on eliquis, HTN, gout, and a failed renal transplant who presented to [facility] [place] with fatigue, generalized weakness, and insomnia x5 days, as well as 2 falls with head trauma ~3 weeks prior. His falls appear to be strictly mechanical in nature in the setting of underlying stable gait disturbance. Generalized weakness is likely 2/2 metabolic derangement 2/2 missing an episode of HD, and there may also be a component of deconditioning 2/2 underlying chronic medical conditions. No acute findings on Head CT. His insomnia may be secondary to his depressive issues documented by primary team, for which Psych has already seen and is following for, as well as medication misuse (as per Psych, pt reported taking 10 ambiens per night for sleep); agree with management already done by Psych. Plan: 1) Given unremarkable head CT and stable Hgb, does not appear to be bleeding, would continue anticoagulation in setting of AFib, for prevention of embolic disease 2) Avoid hypotensive episodes, would maintain SBP > 110 3) PT/OT for gait disturbance 4) Management as per medical and nephro teams 5) Remeron for depression and insomnia as per Psych Patient seen, reviewed, and discussed with attending, Dr. Simental. <Lv Simental - Last Filed: 05/25/17 09:53> Meds - Medications Medications: Current Medications Acetaminophen (Tylenol 325mg Tab) 650 mg PO Q6 PRN PRN Reason: Pain, Mild (1-3) Last Admin: 05/24/17 17:43 Dose: 650 mg Calcium Acetate (Phoslo) 667 mg PO WM [facility] Last Admin: 05/25/17 08:04 Dose: 667 mg Colchicine (Colocrys) 0.6 mg PO 2XW [facility] Last Admin: 05/25/17 09:27 Dose: 0.6 mg Diltiazem HCl (Cardizem) 30 mg PO TID [facility] Last Admin: 05/25/17 09:28 Dose: 30 mg Famotidine (Pepcid) 20 mg PO 1000,2200 [facility] Last Admin: 05/25/17 09:27 Dose: 20 mg Ferrous Sulfate (Feosol) 324 mg PO DAILY [facility] Last Admin: 05/25/17 09:27 Dose: 324 mg Folic Acid (Folic Acid) 1 mg PO DAILY [facility] Last Admin: 05/25/17 09:27 Dose: 1 mg Lisinopril (Zestril) 5 mg PO DAILY [facility] Last Admin: 05/25/17 09:28 Dose: 5 mg Lorazepam (Ativan) 0.5 mg PO TID PRN; Protocol PRN Reason: Anxiety Last Admin: 05/23/17 18:22 Dose: 0.5 mg Mirtazapine (Remeron) 30 mg PO HS [facility] Last Admin: 05/24/17 21:36 Dose: 30 mg Prednisone (Prednisone Tab) 5 mg PO DAILY [facility] Last Admin: 05/25/17 09:27 Dose: 5 mg Vitamin B Complex/Vit C/Folic Acid (Nephro-Natalie) 1 tab PO DAILY [facility] Last Admin: 05/25/17 09:27 Dose: 1 tab Results - Vital Signs Recent Vital Signs: Last Vital Signs Temp 98.0 F 05/25/17 06:00 Pulse 107 H 05/25/17 09:28 Resp 18 05/25/17 06:00 BP 108/67 05/25/17 09:28 Pulse Ox 100 05/25/17 06:00 - Labs Result Diagrams: 05/24/17 05:30 05/24/17 05:30 Labs: Laboratory Results - last 24 hr 05/24/17 05/24/17 05/24/17 12:50 12:50 15:47 Lactic Acid 1.4 TSH 3rd Generation 2.03 Urine Opiates Screen Positive H Urine Methadone Screen Negative Ur Barbiturates Screen Negative Ur Phencyclidine Scrn Negative Ur Amphetamines Screen Negative U Benzodiazepines Scrn Negative U Oth Cocaine Metabols Negative U Cannabinoids Screen Negative
--- NOTE | 2017-05-24 16:55 | PN ---
DATE: SUBJECTIVE: Patient was followed up today. This headline writer initiated Remeron 15 mg in the nighttime yesterday because patient complained of insomnia as well as depressive symptoms. Patient reports that his sleep was improved a lot and he is willing to continue medication, but asked this dose to be increased. Patient reports that if he would not have pain in his lower extremities, probably he would have good night sleep. Patient presents much better to compare with yesterday and this headline writer was presently surprised with patient's presentation. PHYSICAL EXAMINATION: VITAL SIGNS: Stable. Temperature 97.8, pulse is 124, blood pressure 102/68, respirations 20, oxygen saturation 98%. MEDICATIONS: Reviewed. This headline writer will increase the dose of Remeron to 30 mg at the nighttime and Ativan was given 3 times a day as needed. Patient got 2 doses yesterday, but not today. MENTAL STATUS EXAMINATION: The patient presented to be alert and oriented, pleasant and cooperative. Hygiene is much better. Affect was much brighter. Mood described "I feel much better". Affect was more congruent. Thought process was coherent and goal directed. Thought content, patient denied visual, auditory or tactile hallucinations. Denied paranoid ideations. Patient denied thought of harming himself or others. Denied intents or plan. Insight and judgement improving. Impulses were well controlled. IMPRESSION: Rule out adjustment disorder, rule out mood disorder due to general medical condition, rule out anxiety disorder due to general medical condition. Patient had multiple medical issues including end-stage renal disease, on hemodialysis, multiple medical issues. Please see notes for more detailed information and plan. This headline writer will increase the dose of Remeron and patient was educated about taking medication as prescribed. Patient verbalized understanding and assured this headline writer that he will never try to take more medications than what was prescribed. This headline writer educated the patient about the dangerousness of that practice and the potential lethal outcome. Patient verbalized understanding. Patient expresses interest to be followed up with outpatient psychiatrist. This headline writer provided the patient with information about the clinics and local psychiatrist. Patient denied thoughts of harming himself or others. Patient is not an imminent danger to self or others. This headline writer also provide patient with a prescription for 2 week supply and advised the patient to be followed up with outpatient psychiatrist and phone numbers are provided. This headline writer will sign off. Should you have any questions, give me a call back. Nat Alvarenga MD
[2017-05-25] MEDS: Multivitamin Vitamin B Complex (Nephro-Vite) Tab PO SCH (09:27)
--- NOTE | 2017-05-25 12:43 | PN ---
DATE: 05/25/2017 SUBJECTIVE: The patient has no complaints of any chest pain, shortness of breath, or headaches. PHYSICAL EXAMINATION: VITAL SIGNS: Temperature is 98, pulse of 105, blood pressure is 120/82, and respirations are 18. GENERAL: The patient is lying in bed, flat, comfortable. HEENT: No oral lesion. Anicteric sclerae. Moist mucosa. NECK: No JVD, adenopathy, or thyromegaly. CARDIOVASCULAR: S1 and S2, regular. No murmurs, rubs, or gallops. LUNGS: Clear to auscultation bilaterally. No wheeze, rales, or rhonchi. ABDOMEN: Bowel sounds are positive, soft, nontender and nondistended. EXTREMITIES: No cyanosis, clubbing or edema. LABORATORY DATA: Creatinine is 6.6. ASSESSMENT: 1. End-stage renal disease, on hemodialysis. 2. Secondary hyperparathyroidism. 3. Atrial fibrillation. 4. Gout. 5. Hypertension. 6. History of kidney transplant. PLAN: The patient is currently comfortable. He is receiving Cardizem for his atrial fibrillation. He is on colchicine for gout. He is on PhosLo for his secondary hyperparathyroidism. The patient is going to continue with prednisone for a renal transplant that he has had in the past. He is on Zestril for his hypertension. The patient is due for dialysis today. Dialysis should be continued on his dialysis regiment three times a week. He is cleared by me to be discharge and follow up as an outpatient with his dialysis unit and offc spec. Jamin Duffy MD
--- NOTE | 2017-05-25 16:27 | CP.PCM.DIS ---
<Julius Dos Santos - Last Filed: 05/27/17 08:32> Provider - Provider Date of Admission: 05/23/17 03:00 Attending physician: Vinny Whiting MD Primary care physician: Conrado Correia DO Time Spent in preparation of Discharge (in minutes): 30 Diagnosis - Discharge Diagnosis (1) Frequent falls Status: Acute Priority: Medium (2) Atrial fibrillation Status: Acute Priority: Medium (3) Hypertension Status: Acute Priority: Medium (4) Renal transplant disorder Status: Acute Priority: High (5) CKD (chronic kidney disease) stage 4, GFR 15-29 ml/min Status: Chronic Priority: High Hospital Course - Lab Results Lab Results: Micro Results 05/24/17 12:50 Blood Blood Culture - Preliminary NO GROWTH AFTER 24 HOURS Most Recent Lab Values WBC 3.2 10^3/ul (4.5-11.0) L 05/24/17 05:30 RBC 4.68 10^6/uL (3.5-6.1) 05/24/17 05:30 Hgb 10.9 g/dL (14.0-18.0) L 05/24/17 05:30 Hct 35.5 % (42.0-52.0) L 05/24/17 05:30 MCV 75.9 fl (80.0-105.0) L 05/24/17 05:30 MCH 23.3 pg (25.0-35.0) L 05/24/17 05:30 MCHC 30.7 g/dl (31.0-37.0) L 05/24/17 05:30 RDW 22.8 % (11.5-14.5) H 05/24/17 05:30 Plt Count 210 10^3/uL (120.0-450.0) 05/24/17 05:30 Gran % 58.1 % (50.0-68.0) 05/24/17 05:30 Lymph % (Auto) 27.6 % (22.0-35.0) 05/24/17 05:30 [place] % (Auto) 13.7 % (1.0-6.0) H 05/24/17 05:30 Eos % (Auto) 0.6 % (1.5-5.0) L 05/24/17 05:30 Baso % (Auto) 0.0 % (0.0-3.0) 05/24/17 05:30 Gran # 1.87 (1.4-6.5) 05/24/17 05:30 Lymph # 0.9 (1.2-3.4) L 05/24/17 05:30 [place] # 0.4 (0.1-0.6) 05/24/17 05:30 Eos # 0.0 (0.0-0.7) 05/24/17 05:30 Baso # 0.00 K/mm3 (0.0-2.0) 05/24/17 05:30 PT 11.4 Seconds (9.9-11.8) 05/22/17 22:35 INR 1.06 (0.93-1.08) 05/22/17 22:35 APTT 35.0 Seconds (23.7-30.8) H 05/22/17 22:35 pO2 30 mm/Hg (30-55) 05/22/17 22:35 VBG pH 7.39 (7.32-7.43) 05/22/17 22:35 VBG pCO2 50.0 (40-60) 05/22/17 22:35 VBG HCO3 30.3 mmol/l (21-28) H 05/22/17 22:35 VBG Total CO2 31.8 mmol.L (22-28) H 05/22/17 22:35 VBG O2 Sat (Calc) 55.9 % (40-65) 05/22/17 22:35 VBG Base Excess 4.3 mmol/L (0.0-2.0) H 05/22/17 22:35 VBG Potassium 4.0 mmol/L (3.6-5.2) 05/22/17 22:35 Sodium 136.0 mmol/L (132-148) 05/22/17 22:35 Chloride 97.0 mmol/L (98-107) L 05/22/17 22:35 Glucose 78 mg/dl (75-110) 05/22/17 22:35 Lactate 1.5 mmol/L (0.7-2.1) 05/22/17 22:35 FiO2 21.0 % 05/22/17 22:35 Sodium 139 mmol/L (132-148) 05/24/17 05:30 Potassium 4.5 mmol/L (3.6-5.0) 05/24/17 05:30 Chloride 99 mmol/L (98-107) 05/24/17 05:30 Carbon Dioxide 29 mmol/L (21-33) 05/24/17 05:30 Anion Gap 16 (10-20) 05/24/17 05:30 BUN 19 mg/dL (7-21) 05/24/17 05:30 Creatinine 6.6 mg/dL (0.5-1.4) H 05/24/17 05:30 Est GFR ( Amer) 11 05/24/17 05:30 Est GFR (Non-Af Amer) 9 05/24/17 05:30 Random Glucose 81 mg/dL (70-110) 05/24/17 05:30 Lactic Acid 1.4 mmol/L (0.7-2.1) 05/24/17 12:50 Calcium 9.4 mg/dL (8.4-10.5) 05/24/17 05:30 Phosphorus 5.5 mg/dL (2.5-4.5) H 05/23/17 12:30 Magnesium 1.9 mg/dL (1.7-2.2) 05/23/17 12:30 Total Bilirubin 0.7 mg/dL (0.2-1.3) 05/24/17 05:30 AST 28 U/L (17-59) 05/24/17 05:30 ALT 24 U/L (7-56) 05/24/17 05:30 Alkaline Phosphatase 73 U/L (38-126) 05/24/17 05:30 Lactate Dehydrogenase 399 U/L (333-699) 05/22/17 22:35 Total Creatine Kinase 48 U/L (35-230) 05/22/17 22:35 Troponin I 0.03 ng/mL D 05/22/17 22:35 Total Protein 5.7 g/dL (5.8-8.3) L 05/24/17 05:30 Albumin 3.4 g/dL (3.0-4.8) 05/24/17 05:30 Globulin 2.4 gm/dL 05/24/17 05:30 Albumin/Globulin Ratio 1.4 (1.1-1.8) 05/24/17 05:30 Lipase 92 U/L (23-300) 05/22/17 22:35 TSH 3rd Generation 2.03 mIU/mL (0.46-4.68) 05/24/17 12:50 Venous Blood Potassium 4.0 mmol/L (3.6-5.2) 05/22/17 22:35 Urine Opiates Screen Positive (NEGATIVE) H 05/24/17 15:47 Urine Methadone Screen Negative (NEGATIVE) 05/24/17 15:47 Ur Barbiturates Screen Negative (NEGATIVE) 05/24/17 15:47 Ur Phencyclidine Scrn Negative (NEGATIVE) 05/24/17 15:47 Ur Amphetamines Screen Negative (NEGATIVE) 05/24/17 15:47 U Benzodiazepines Scrn Negative (NEGATIVE) 05/24/17 15:47 U Oth Cocaine Metabols Negative (NEGATIVE) 05/24/17 15:47 U Cannabinoids Screen Negative (NEGATIVE) 05/24/17 15:47 - Hospital Course Hospital Course: Patient is a 57 year old male with a PMHx of ESRD on HD (missed 1 HD session), s /p renal transplant, now back on HD, atrial fibrillation, HTN, and gout, who was admitted to the hospital for evaluation and treatment of fatigue. With the use of physical examinations, lab work, and imaging the patient was diagnosed and treated for uremia, acute on chronic renal failure, insomnia, and anemia. During the hospital stay the patient was seen by nephrology for his ESRD, psychiatry for insomnia, neurology for falls, and orthopedic surgery for left knee pain. The patients CT of head showed no acute findings. Patient US of b/l lower extremities showed no evidence for a DVT. Patient told to follow up with PMD within 1 week, continue HD as scheduled, follow up with scullion chief, and continue taking medication as prescribed. Patient also instructed to return to ED for evaluation of fever, chills, dizziness, headache, chest pain, SOB, abdominal pain, N/V, diarrhea, constipation, and urinary symptoms. Patient is medically clear for discharge to home. Discharge Exam - Head Exam Head Exam: ATRAUMATIC, NORMAL INSPECTION, NORMOCEPHALIC - Additional Findings Additional findings: - Constitutional Appears: no acute distress - Head Exam Head Exam: ATRAUMATIC, NORMOCEPHALIC - Eye Exam Eye Exam: EOMI, PERRL. absent: Conjunctival injection, Scleral icterus Pupil Exam: NORMAL ACCOMODATION, PERRL. absent: Irregular, Unequal - ENT Exam ENT Exam: MMM moist - Neck Exam Neck exam: Negative for: Lymphadenopathy, Thyromegaly - Respiratory Exam Respiratory Exam: Clear to Auscultation Bilateral. absent: Accessory Muscle Use , Rales, Rhonchi, Wheezes - Cardiovascular Exam Cardiovascular Exam: +s1 +s2 - GI/Abdominal Exam GI & Abdominal Exam: Normal Bowel Sounds, Soft. absent: Guarding, Rebound, Tenderness - Extremities Exam Extremities exam: Positive for: left knee mildly swollen, no erythema, no joint tenderness, pedal pulses present. Negative for: calf tenderness, pedal edema - Back Exam Back exam: absent: CVA tenderness (L), CVA tenderness (R), rash noted, vertebral tenderness - Neurological Exam Neurological exam: Alert, CN II-XII Intact, Oriented x3 - Psychiatric Exam Psychiatric exam: normal mood, normal affect - Skin Skin Exam: Warm and intact Discharge Plan - Follow Up Plan Condition: STABLE Disposition: HOME/ ROUTINE Instructions: Near Syncope (ED) Additional Instructions: Follow up with PMD within 1 week. Continue HD as scheduled and follow up with scullion chief. Continue taking medications as prescribed. Return to ED for evaluation of fever, chills, dizziness, headache, chest pain, SOB, abdominal pain, N/V, diarrhea, constipation, and urinary symptoms. RN NOTE Dr. Whiting/Roger resident, Dr. Cardona orders discharge to home. Follow the above instructions when you get home. Follow-up with Dr. Krueger within 7-10 days, as well as with your Client Technical Support Associate. Take time to read through the Discharge Instructions at your earliest convenience as it contains information regarding your case. If you experience any difficult breathing, unusual bleeding, temperature over 100F, severe pain, change in mental status or any worsening of your condition you are to contact Dr. Whiting/Roger or the nearest ED immediately. Please check the room for all your possessions before leaving. Referrals: Conrado Correia DO [Primary Care Provider] - <Pavan Duran - Last Filed: 06/29/17 16:52> Provider - Provider Date of Admission: 05/23/17 03:00 Attending physician: Vinny Whiting MD Primary care physician: Conrado Correia DO Hospital Course - Lab Results Lab Results: Micro Results 05/24/17 12:50 Blood Blood Culture - Final NO GROWTH AFTER 5 DAYS 05/24/17 12:50 Blood Gram Stain - Final TEST NOT PERFORMED 05/25/17 09:17 Urine,Clean Catch Urine Culture - Final Gram Positive Cocci Most Recent Lab Values WBC 1.8 10^3/ul (4.5-11.0) L* D 05/25/17 16:20 RBC 4.65 10^6/uL (3.5-6.1) 05/25/17 16:20 Hgb 11.1 g/dL (14.0-18.0) L 05/25/17 16:20 Hct 34.9 % (42.0-52.0) L 05/25/17 16:20 MCV 75.1 fl (80.0-105.0) L 05/25/17 16:20 MCH 23.9 pg (25.0-35.0) L 05/25/17 16:20 MCHC 31.8 g/dl (31.0-37.0) 05/25/17 16:20 RDW 22.7 % (11.5-14.5) H 05/25/17 16:20 Plt Count 237 10^3/uL (120.0-450.0) 05/25/17 16:20 Gran % 56.8 % (50.0-68.0) 05/25/17 16:20 Lymph % (Auto) 36.1 % (22.0-35.0) H 05/25/17 16:20 [place] % (Auto) 6.0 % (1.0-6.0) 05/25/17 16:20 Eos % (Auto) 1.1 % (1.5-5.0) L 05/25/17 16:20 Baso % (Auto) 0.0 % (0.0-3.0) 05/25/17 16:20 Gran # 1.04 (1.4-6.5) L 05/25/17 16:20 Lymph # 0.7 (1.2-3.4) L 05/25/17 16:20 [place] # 0.1 (0.1-0.6) 05/25/17 16:20 Eos # 0.0 (0.0-0.7) 05/25/17 16:20 Baso # 0.00 K/mm3 (0.0-2.0) 05/25/17 16:20 PT 11.4 Seconds (9.9-11.8) 05/22/17 22:35 INR 1.06 (0.93-1.08) 05/22/17 22:35 APTT 35.0 Seconds (23.7-30.8) H 05/22/17 22:35 pO2 30 mm/Hg (30-55) 05/22/17 22:35 VBG pH 7.39 (7.32-7.43) 05/22/17 22:35 VBG pCO2 50.0 (40-60) 05/22/17 22:35 VBG HCO3 30.3 mmol/l (21-28) H 05/22/17 22:35 VBG Total CO2 31.8 mmol.L (22-28) H 05/22/17 22:35 VBG O2 Sat (Calc) 55.9 % (40-65) 05/22/17 22:35 VBG Base Excess 4.3 mmol/L (0.0-2.0) H 05/22/17 22:35 VBG Potassium 4.0 mmol/L (3.6-5.2) 05/22/17 22:35 Sodium 136.0 mmol/L (132-148) 05/22/17 22:35 Chloride 97.0 mmol/L (98-107) L 05/22/17 22:35 Glucose 78 mg/dl (75-110) 05/22/17 22:35 Lactate 1.5 mmol/L (0.7-2.1) 05/22/17 22:35 FiO2 21.0 % 05/22/17 22:35 Sodium 136 mmol/L (132-148) 05/25/17 16:20 Potassium 4.1 mmol/L (3.6-5.0) 05/25/17 16:20 Chloride 97 mmol/L (98-107) L 05/25/17 16:20 Carbon Dioxide 28 mmol/L (21-33) 05/25/17 16:20 Anion Gap 15 (10-20) 05/25/17 16:20 BUN 26 mg/dL (7-21) H 05/25/17 16:20 Creatinine 6.9 mg/dL (0.5-1.4) H 05/25/17 16:20 Est GFR ( Amer) 10 05/25/17 16:20 Est GFR (Non-Af Amer) 8 05/25/17 16:20 Random Glucose 94 mg/dL (70-110) 05/25/17 16:20 Lactic Acid 1.4 mmol/L (0.7-2.1) 05/24/17 12:50 Uric Acid 5.2 mg/dL (3.5-8.5) 05/25/17 16:20 Calcium 9.3 mg/dL (8.4-10.5) 05/25/17 16:20 Phosphorus 3.8 mg/dL (2.5-4.5) 05/25/17 16:20 Magnesium 1.9 mg/dL (1.7-2.2) 05/25/17 16:20 Total Bilirubin 0.7 mg/dL (0.2-1.3) 05/25/17 16:20 AST 26 U/L (17-59) 05/25/17 16:20 ALT 25 U/L (7-56) 05/25/17 16:20 Alkaline Phosphatase 71 U/L (38-126) 05/25/17 16:20 Lactate Dehydrogenase 399 U/L (333-699) 05/22/17 22:35 Total Creatine Kinase 48 U/L (35-230) 05/22/17 22:35 Troponin I 0.03 ng/mL D 05/22/17 22:35 Total Protein 5.9 g/dL (5.8-8.3) 05/25/17 16:20 Albumin 3.5 g/dL (3.0-4.8) 05/25/17 16:20 Globulin 2.4 gm/dL 05/25/17 16:20 Albumin/Globulin Ratio 1.5 (1.1-1.8) 05/25/17 16:20 Lipase 92 U/L (23-300) 05/22/17 22:35 TSH 3rd Generation 2.03 mIU/mL (0.46-4.68) 05/24/17 12:50 Venous Blood Potassium 4.0 mmol/L (3.6-5.2) 05/22/17 22:35 Urine Opiates Screen Positive (NEGATIVE) H 05/24/17 15:47 Urine Methadone Screen Negative (NEGATIVE) 05/24/17 15:47 Ur Barbiturates Screen Negative (NEGATIVE) 05/24/17 15:47 Ur Phencyclidine Scrn Negative (NEGATIVE) 05/24/17 15:47 Ur Amphetamines Screen Negative (NEGATIVE) 05/24/17 15:47 U Benzodiazepines Scrn Negative (NEGATIVE) 05/24/17 15:47 U Oth Cocaine Metabols Negative (NEGATIVE) 05/24/17 15:47 U Cannabinoids Screen Negative (NEGATIVE) 05/24/17 15:47 Attending/Attestation - Attestation I have personally seen and examined this patient.: Yes I have fully participated in the care of the patient.: Yes I have reviewed all pertinent clinical information, including history, physical exam and plan: Yes Notes (Text): 06/29/17 16:52 Medical record note made by the resident after discussion with my direction and input after the patient was personally seen and examined by me. I have reviewed the chart and agree that the record accurately reflects by personal performance of the history, physical exam, data review, and medical decision-making, in the course for the patient. I have also personally directed the plan of care.
[2017-05-25] MEDS ORDERED: Bupivacaine 0.5% Inj(30mL) IJ ONE (16:35)
[2017-05-25] MEDS ORDERED: MethylPREDNISolone Depo 40 mg/ml Inj IM ONE (16:35)
[2017-05-25 17:01] LABS: EOS % 1.1 % (1.5-5.0); GRAN # 1.04 (1.4-6.5); GRAN % 56.8 % (50.0-68.0); HEMATOCRIT 34.9 % (42.0-52.0); LYMPH # 0.7 (1.2-3.4); LYMPH % 36.1 % (22.0-35.0); MEAN CELL VOLUME 75.1 fl (80.0-105.0); MEAN CORPUSCULAR HEMOGLOBIN 23.9 pg (25.0-35.0); MEAN CORPUSCULAR HGB CONC 31.8 g/dl (31.0-37.0); MONO # 0.1 (0.1-0.6); PLATELET COUNT 237 10^3/uL (120.0-450.0); RED CELL DISTRIBUTION WIDTH 22.7 % (11.5-14.5)
[2017-05-25 17:09] LABS: WHITE BLOOD COUNT 1.8 10^3/ul (4.5-11.0)
[2017-05-25 17:17] LABS: ALB/GLOB RATIO 1.5 (1.1-1.8); BILIRUBIN,TOTAL 0.7 mg/dL (0.2-1.3); CALCIUM 9.3 mg/dL (8.4-10.5); POTASSIUM 4.1 mmol/L (3.6-5.0); TOTAL PROTEIN 5.9 g/dL (5.8-8.3)
[2017-05-25 20:50] LABS: MAGNESIUM 1.9 mg/dL (1.7-2.2); PHOSPHOROUS 3.8 mg/dL (2.5-4.5); URIC ACID 5.2 mg/dL (3.5-8.5)
[2017-05-26 07:05] VITALS: O2SAT 94
--- NOTE | 2017-05-26 08:22 | CP.PCM.PN ---
<Erica Palumbo - Last Filed: 05/26/17 13:07> Subjective - Date & Time of Evaluation Date of Evaluation: 05/26/17 Time of Evaluation: 07:05 - Subjective Subjective: Progress note for Dr Henok wyatt. Patient with no acute events overnight. Patient was going to be discharged yesterday, however pending orthopedic evaluation of the left knee pain. Patient denies chest pain, sob, n/v/d, denies dizziness or lightheadedness. Patient report the left knee pain is intermittent. Denies headache , fever or chills. Patient will be discharged home today, and to follow up as outpatient. Please see discharged summary below done on 05/25/17. Objective - Vital Signs/Intake and Output Vital Signs (last 24 hours): Temp Pulse Resp BP Pulse Ox 97.9 F 92 H 20 106/68 94 L 05/26/17 06:00 05/26/17 06:00 05/26/17 06:00 05/26/17 06:00 05/26/17 06:00 Intake and Output: 05/26/17 05/26/17 06:59 18:59 Intake Total 480 Balance 480 - Medications Medications: Current Medications Acetaminophen (Tylenol 325mg Tab) 650 mg PO Q6 PRN PRN Reason: Pain, Mild (1-3) Last Admin: 05/24/17 17:43 Dose: 650 mg Calcium Acetate (Phoslo) 667 mg PO WM [facility] Last Admin: 05/26/17 08:12 Dose: 667 mg Colchicine (Colocrys) 0.6 mg PO 2XW [facility] Last Admin: 05/25/17 09:27 Dose: 0.6 mg Diltiazem HCl (Cardizem) 30 mg PO TID [facility] Last Admin: 05/25/17 19:13 Dose: Not Given Famotidine (Pepcid) 20 mg PO 1000,2200 [facility] Last Admin: 05/25/17 22:07 Dose: 20 mg Ferrous Sulfate (Feosol) 324 mg PO DAILY [facility] Last Admin: 05/25/17 09:27 Dose: 324 mg Folic Acid (Folic Acid) 1 mg PO DAILY [facility] Last Admin: 05/25/17 09:27 Dose: 1 mg Lisinopril (Zestril) 5 mg PO DAILY [facility] Last Admin: 05/25/17 09:28 Dose: 5 mg Lorazepam (Ativan) 0.5 mg PO TID PRN; Protocol PRN Reason: Anxiety Last Admin: 05/25/17 22:41 Dose: 0.5 mg Mirtazapine (Remeron) 30 mg PO HS [facility] Last Admin: 05/25/17 22:07 Dose: 30 mg Prednisone (Prednisone Tab) 5 mg PO DAILY [facility] Last Admin: 05/25/17 09:27 Dose: 5 mg Vitamin B Complex/Vit C/Folic Acid (Nephro-Natalie) 1 tab PO DAILY [facility] Last Admin: 05/25/17 09:27 Dose: 1 tab - Labs Labs: 05/25/17 16:20 05/25/17 16:20 PT 11.4 Seconds (9.9-11.8) 05/22/17 22:35 INR 1.06 (0.93-1.08) 05/22/17 22:35 APTT 35.0 Seconds (23.7-30.8) H 05/22/17 22:35 - Constitutional Appears: No Acute Distress, Older Than Stated Age, Cachectic, Chronically Ill - Head Exam Head Exam: ATRAUMATIC, NORMAL INSPECTION, NORMOCEPHALIC - Eye Exam Eye Exam: EOMI, Normal appearance, PERRL. absent: Scleral icterus Pupil Exam: NORMAL ACCOMODATION - ENT Exam ENT Exam: Mucous Membranes Moist - Neck Exam Neck Exam: Full ROM, Normal Inspection - Respiratory Exam Respiratory Exam: Clear to Ausculation Bilateral, NORMAL BREATHING PATTERN. absent: Rales, Rhonchi, Wheezes, Respiratory Distress, Stridor - Cardiovascular Exam Cardiovascular Exam: Irregular Rhythm, +S1, +S2. absent: Murmur - GI/Abdominal Exam GI & Abdominal Exam: Soft, Normal Bowel Sounds. absent: Distended, Firm, Guarding, Rigid, Tenderness - Extremities Exam Extremities Exam: Normal Inspection. absent: Pedal Edema - Back Exam Back Exam: NORMAL INSPECTION - Neurological Exam Neurological Exam: Alert, Awake, Oriented x3 Neuro motor strength exam: Left Upper Extremity: 4, Right Upper Extremity: 4, Left Lower Extremity: 4, Right Lower Extremity: 4 - Psychiatric Exam Psychiatric exam: Depressed - Skin Skin Exam: Dry, Warm Assessment and Plan - Assessment and Plan (Free Text) Assessment: Patient is a 57 y/o with a PMH of ESRD on HD, s/p renal transplant, now back on HD, atrial fibrillation, HTN, gout, and insomnia presenting with generalized fatigue associated with nausea and diarrhea, worsening of insomnia despite taking 6x the prescribed dose of zolpidem. Patient admitted on admission that he missed a day on dialysis. Patient is currently stable, awaiting orthopedic means on his left knee. Plan: 1) ESRD- - s/p HD yesterday - will continue phoslo - Nephro following 2) S/P renal transplant - will continue prednisone 3) Generalized weakness likely 2nd to uremia and gastroenteritis - weakness resolved - CT head was negative - Neuro saw patient, rec appreciated - gastroenteritis resolved 4) Depression/insomnia - psych saw patient, rec appreciated - will continue with ativan prn and remeron prn. 5) HTN- controlled, will continue with lisinopril 6) Afib- rate controlled - will continue with po cardizem - will continue home dose of eliquis. 7) Microcytic anemia - will continue with po iron 8) h/o gout- will continue with colchicine 9) Left knee pain - x-ray normal - patient will be discharged, to follow up as outpatient. 10) Gi prophylaxis- pepcid, DVT prophylaxis on eliquis. Please see discharge summary dictated on 05/25/17. Patient seen, examined, case discussed with Dr Duran. <Pavan Duran - Last Filed: 06/29/17 16:52> Objective - Vital Signs/Intake and Output Vital Signs (last 24 hours): Temp Pulse Resp BP Pulse Ox 98.4 F 106 H 18 102/73 94 L 05/26/17 12:00 05/26/17 14:00 05/26/17 12:00 05/26/17 13:37 05/26/17 06:00 - Labs Labs: 05/25/17 16:20 05/25/17 16:20 PT 11.4 Seconds (9.9-11.8) 05/22/17 22:35 INR 1.06 (0.93-1.08) 05/22/17 22:35 APTT 35.0 Seconds (23.7-30.8) H 05/22/17 22:35 Attending/Attestation - Attestation I have personally seen and examined this patient.: Yes I have fully participated in the care of the patient.: Yes I have reviewed all pertinent clinical information, including history, physical exam and plan: Yes Notes (Text): 06/29/17 16:52 Medical record note made by the resident after discussion with my direction and input after the patient was personally seen and examined by me. I have reviewed the chart and agree that the record accurately reflects by personal performance of the history, physical exam, data review, and medical decision-making, in the course for the patient. I have also personally directed the plan of care.
[2017-05-26] MEDS: Multivitamin Vitamin B Complex (Nephro-Vite) Tab PO SCH (09:59)
--- NOTE | 2017-05-26 12:04 | RAD ---
PROCEDURE: Left Knee Radiographs. HISTORY: Pain. COMPARISON: None. FINDINGS: BONES: Normal. No fracture. JOINTS: Normal. No osteoarthritis. JOINT EFFUSION: None. OTHER FINDINGS: None. IMPRESSION: Normal radiographs of the left knee.
--- NOTE | 2017-05-26 12:07 | PN ---
DATE: 05/26/2017 SUBJECTIVE The patient is seen lying in bed. He is awake, he is alert and comfortable. He denies any pain. Denies any shortness of breath. PHYSICAL EXAMINATION GENERAL: Middle-aged male lying in bed in no acute distress. VITAL SIGNS: Blood pressure 106/68, heart rate 92, respiratory rate 20, temperature 97.9. NECK: Supple. No JVD. LUNGS: Bilateral equal air entry, no rales. CARDIAC: S1 and S2. Regular rate and rhythm. No murmur, no rub. ABDOMEN: Soft, nondistended, and nontender. EXTREMITIES: No lower extremity edema. INTAKE AND OUTPUT: Not charted. LABORATORY DATA WBC of 1.8, hemoglobin 11, hematocrit 34.5, and platelets 237. Sodium 136, potassium 4.1, chloride 97, CO2 98, BUN 26, creatinine 6.9, uric acid 5.2, calcium 9.3, phosphorus 3.8, magnesium 1.9. Urine culture, gram-positive cocci. ASSESSMENT 1. End-stage renal disease. 2. Anemia of chronic renal disease. 3. Secondary hyperparathyroidism. 4. Hypertension. PLAN 1. Stable dialysis yesterday. 2. Blood pressure, well controlled. 3. Anemia is compensated. 4. The patient is stable from the renal standpoint. Leslie Hatch MD
[2017-05-26 13:38] VITALS: BP 102/73
[2017-05-26 13:49] VITALS: RESP 18; TEMP 98.4
[2017-05-26 15:20] VITALS: PULSE 106
--- NOTE | 2017-05-28 08:49 | CON ---
DATE: 05/25/2017 LOCATION: Room 260, bed 2. The patient is a 57-year-old male with a history of left knee pain, episodic in nature, none today when I am seeing him. He also has occasional swelling with a past history of gout by history, and once in a while gets steroids. He does have history of chronic renal failure and on hemodialysis. Today, he has no knee pain, very little effusion, not enough to aspirate and he is on dialysis right now in ICU and we are going to order an x-ray as he has none right now on the left knee and I will order some Depo-Medrol and Marcaine in case pain and swelling occur again, but I told him as long as it is not hurting I do not need to give a cortisone shot and we are going to order some uric acid . I told him I would see him again, and if the pain hurts or gets worse or swells, we could give him a Depo-Medrol injection as it does appear to be a gouty attack by history. So, wait for the x-ray to come back and I will reevaluate him again. inflammatory arthritis left knee with episodic swelling. Dlian Flowers DO
== END 2017-05-26 16:14 | disposition home or self-care (01) ==
LOC: ED 20:39 → ERH 05-23 03:00 → 2RNO 05-23 04:59
PROVIDERS: ADMIT Internal Medicine; ATTEND Internal Medicine
DX: N17.9 Acute kidney failure, unspecified (principal); I48.91 Unspecified atrial fibrillation; I12.0 Hypertensive chronic kidney disease with stage 5 chronic kidney disease or end stage renal disease; N18.6 End stage renal disease; D63.1 Anemia in chronic kidney disease; F32.89 Other specified depressive episodes; G47.00 Insomnia, unspecified; Z87.01 Personal history of pneumonia (recurrent); Z87.891 Personal history of nicotine dependence; Z99.2 Dependence on renal dialysis; Z94.0 Kidney transplant status; Z91.81 History of falling; Z85.528 Personal history of other malignant neoplasm of kidney; Z79.899 Other long term (current) drug therapy; Z82.49 Family history of ischemic heart disease and other diseases of the circulatory system; Z84.1 Family history of disorders of kidney and ureter; Z87.828 Personal history of other (healed) physical injury and trauma; M10.9 Gout, unspecified; J32.0 Chronic maxillary sinusitis; N25.81 Secondary hyperparathyroidism of renal origin; R29.6 Repeated falls; R62.7 Adult failure to thrive; K62.5 Hemorrhage of anus and rectum; R55 Syncope and collapse; R40.2412 Glasgow coma scale score 13-15, at arrival to emergency department; K52.9 Noninfective gastroenteritis and colitis, unspecified; F06.30 Mood disorder due to known physiological condition, unspecified; F06.4 Anxiety disorder due to known physiological condition; R26.9 Unspecified abnormalities of gait and mobility; D50.9 Iron deficiency anemia, unspecified; M25.562 Pain in left knee
CPT/HCPCS: 36415; 70450; 71010; 73560; 80053; 82550; 82803; 83605; 83615; 83690; 83735; 84100; 84443; 84484; 84550; 85025; 85027; 85610; 85730; 87040; 87086; 93005; 93970; 96374; 97162; 97530; 99285; G0257; G0378; G0480; G8978; G8979; J2270